=== PATIENT | male | born 1945 | race Caucasian/White ===

== ENCOUNTER → 2019-08-31 09:30 | Outpatient (BNVA) | payer MEDICARE, OTHER, SELFPAY | PROVIDERS: Family Provider Internal Medicine; PCP Internal Medicine; Referring Provider Internal Medicine; Visit Provider Specialist | DX: G56.03 Carpal tunnel syndrome, bilateral upper limbs (principal); G56.23 Lesion of ulnar nerve, bilateral upper limbs | CPT/HCPCS: 95910 ==

== ENCOUNTER → 2019-09-07 09:20 | Outpatient (BNVA) | payer MEDICARE, OTHER, SELFPAY | PROVIDERS: Family Provider Internal Medicine; PCP Internal Medicine; Visit Provider Urology | DX: R97.20 Elevated prostate specific antigen [PSA] (principal); N40.1 Benign prostatic hyperplasia with lower urinary tract symptoms | CPT/HCPCS: 81001; 84153 ==

== ENCOUNTER 2019-10-07 08:55 | Outpatient (CLI) | payer MEDICARE, OTHER, SELFPAY ==
[2019-10-07 10:55] LABS: Basophils % 0.6 %; Eosinophils # 0.1 10^3/uL (0.0-0.8); Eosinophils % 2.6 %; Hematocrit 34.8 % (42.0-52.0); Hemoglobin 10.8 g/dL (11.7-16.6); Lymphocytes # 0.8 10^3/uL (0.8-4.8); Lymphocytes % 15.1 %; Mean Corpuscular Volume 96.7 fL (80-94); Mean Platelet Volume 10.7 fL (7.4-10.4); Monocytes # 0.5 10^3/uL (0.2-0.9); Monocytes % 9.3 %; Neutrophils # 3.6 10^3/uL (1.8-7.7); Nucleated Red Blood Cells % 0 %; Platelet Count 217 10^3/cmm (130-400); Red Cell Distribution Width 15.2 % (12.1-15.1)
[2019-10-07 11:09] LABS: Alanine Aminotransferase 19 U/L (0-41); Albumin Level 4.2 g/dL (3.5-5.2); Alkaline Phosphatase 75 IU/L (40-130); Anion Gap 16.8 (5-19); Aspartate Amino Transferase 24 U/L (0-40); Blood Urea Nitrogen 23 mg/dL (8-23); Carbon Dioxide 25 mmol/L (22-29); Chloride 104 mmol/L (98-107); Globulin 3.1 g/dL (1.3-4.6); Glucose 135 mg/dL (65-115); Osmolality Calculated 293 mOsm/kg (285-295); Potassium 3.8 mmol/L (3.5-5.1); Sodium 142 mmol/L (136-145); Total Bilirubin 0.4 mg/dL (0.15-1.2); Total Protein 7.3 g/dL (6.6-8.7)
[2019-10-07 11:26] LABS: Iron 53 ug/dL (59-158); Total Iron Binding Capacity 331 mcg/dl; Unsaturated Iron Binding 278 ug/dL (112-347)
== END 2019-10-07 08:56 | disposition home or self-care (01) ==
LOC: ONCMED 15:16
PROVIDERS: Family Provider Internal Medicine; PCP Internal Medicine; Visit Provider Internal Medicine Medical Oncology
DX: D64.9 Anemia, unspecified (principal)
CPT/HCPCS: 36415; 80053; 83540; 83550; 85025

== ENCOUNTER 2019-12-09 05:46 | Day surgery (SDC) | payer MEDICARE, OTHER, SELFPAY ==
[2019-12-09] VITALS (7 sets, daily range): BP systolic 114–161; BP diastolic 68–92; PULSE 56–62; RESP 12–18; TEMP 36.3–36.9; O2SAT 94–99; BMI 38.3
--- NOTE | 2019-12-09 06:27 | ANES.PREANE2 ---
Pre-Anesthetic Assessment Pre-Anesthetic Assessment: Height/Weight: Height 1.83 m Weight 128.367 kg Temp Pulse Resp BP Pulse Ox 98.4 F 62 18 161/89 99 12/09/19 06:16 12/09/19 06:16 12/09/19 06:16 12/09/19 06:16 12/09/19 06:16 Proposed Procedure: Operation Date: 12/09/19 07:20 Proposed Procedures p Carpal Tunnel Release [id number]/G56.03/G56.23(Right) - Dino Santoro DO s Ulna Nerve Decompression vs transposition(Right) - Dino Santoro DO Last intake: Intake Last Liquid Date 12/08/19 Last Liquid Time 18:00 Last Solid Date 12/08/19 Last Solid Time 18:00 Social: Social History: No alcohol and No tobacco Exam: Pre-Anes Outpt Exam: alert, oriented x 3, clear to auscultation bilaterally and regular rate & rhythm Airway: Submandibular: WNL Cervical ROM: WNL MP: 2 Dentition: Other (teeth ok) History/ROS: No significant history except as noted Pulmonary: Pulmonary: NASSAR and Sleep apnea CV/HEM: CV/HEM: Afib, CAD (cabg 2013), CHF and HTN : : None reported Hepatic: Hepatic: None reported GI: GI: None reported Metabolic: Metabolic: DM, Hyperlipidemia and Morbid obesity Musc/skel: Musc/skel: Lower Back Pain and OA/DJD Neuropsych: Neuropsych: Neuropathy (hands) Anesthetic Plan: ASA status: 3 Anesthesia: Anesthesia Evaluation and MAC Risk of > 500 ml blood loss (7ml/kg in children): No PFSH Anesthesia PFSH: Medical History Anticoagulation adequate with anticoagulant therapy Xarelto Atrial fibrillation BPH loc w urin obs/LUTS CAD (coronary artery disease) Diabetes Dyslipidemia Elevated PSA Essential hypertension Ischemic cardiomyopathy Obesity Peripheral arterial disease Sleep apnea Surgical History H/O knee surgery S/P appendectomy S/P CABG (coronary artery bypass graft) S/P cataract surgery S/P hernia repair Family History Mother CAD (coronary artery disease) Stroke Father CAD (coronary artery disease) Family/Other Diabetes Hypertension Social History Smoking and tobacco status: never smoked Alcohol intake: never Adopted: No Caregiver/support person: No Marital status: / Current occupational status: retired History of recent travel: No Current gender identity: Male Data Anesthesia Cardiac Studies: No Data to Display
[2019-12-09] MEDS: sodium chloride 0.9% 1,000 ML 30 ML IV (06:44)
--- NOTE | 2019-12-09 07:02 | P.HPUD_ITS ---
Surgery/Procedure H&P Update DATE OF PROCEDURE: December 09, 2019 DATE H&P PERFORMED: 12/06/19 H&P UPDATE INFORMATION: I have reviewed H&P completed within last 30 days, I have examined patient prior to procedure, No changes to prior documentation, Changes to prior documentation as noted here and H&P is in [facility] on date indicated PREOP DIAGNOSIS: Right carpal tunnel space right cubital tunnel PRIMARY INDICATION FOR PROCEDURE: Entrapment median nerve right wrist and entrapment of ulnar nerve right elbow PLANNED PROCEDURE: Operation Date: 12/09/19 07:20 Proposed Procedures p Carpal Tunnel Release [id number]/G56.03/G56.23(Right) - DO mary Chavez Ulna Nerve Decompression vs transposition(Right) - Dino Santoro DO
--- NOTE | 2019-12-09 07:03 | PM.OP ---
Operative Report Date of procedure: December 09, 2019 Pre-op Diagnosis: Right carpal tunnel and right cubital tunnel syndromes Post-op diagnosis: same Post-op Findings: see below Procedure Done: Decompression right carpal tunnel Decompression right cubital tunnel Pathology: none sent Surgeon: Dino Santoro Anesthesia: General Estimated blood loss (mL): 5 Tourniquet time (min): 48 Findings: Tight carpal and cubital tunnels Condition: stable Disposition: PACU Brief History: 74-year-old white male with complaints of pain and paresthesias affecting the right upper extremity. His examination was suggestive of both right carpal and cubital tunnels. Electrodiagnostic studies supported this diagnosis as well. Risks, benefits and potential complications of surgery were discussed with the patient. Risks include aren't limited to failure to relieve all symptoms. There is potential for wound healing complications, infection, nerve/blood vessel/tendon injury. Medical complications can occur with surgery to include blood clots, heart attack, stroke risk up to including . All questions were answered patient is agreeable to proceed with surgery. Procedure: 1.5 g Zinacef Patient identified. Surgical sites are signed. Surgical permit signed. Patient received 1.5 g of Zinacef IV for surgical prophylaxis. Patient was taken to the Operating Room. Patient was transferred to the Operating Room table. Patient is placed supine on the OR table.. Patient placed under general anesthesia without difficulty. Patient was then sterilely prepped and draped in usual fashion using a sterile tourniquet. A 4cm palmar incision was made. Dissection carried down through skin subcutaneous tissue. We incised the transverse carpal ligament. The transverse carpal ligament was undermined proximally. The wrist was extended and then using a pushing scissors technique, the proximal extent of the transverse carpal ligament was divided. We verified the release was complete. Using scissors technique dissection, we released the distal extent of the transverse carpal ligament and the deep layer of the palmar fascia to the level of the superficial palmar arch. The median nerve was identified as well as the recurrent branch that was preserved. No other pathology noted in the carpal tunnel. Once again, we verified the release was complete. The wound was irrigated with sterile saline containing Betadine and sterile saline containing antibiotic solution. Skin closure was performed with interrupted sutures of 4-0 nylon. Attention was turned to the medial aspect of the operative elbow. A 6 cm curvilinear incision was made centered between the olecranon process and the medial humeral epicondyle. Full-thickness skin flaps were made with a skin knife. Crossing veins were coagulated with electrocautery. Scissors dissection was used to deepen the incision. Self-retaining retractors were put into place. The brachial fascia was opened using careful scissors dissection and the underlying ulnar nerve identified. The brachial fascia was released for several centimeters proximal to the cubital tunnel. No extrinsic compression on the ulnar nerve was appreciated proximally passing a hemostat beneath the skin and above the ulnar nerve. Dissection was continued distally using careful scissors dissection being careful to preserve cutaneous nerves as possible. Decompression of the ulnar nerve is taken several centimeters distal to the area of maximal compression at the area of Sabillon's fascia. Using a hemostat distally there is no evidence of distal compression into the proximal forearm. A subtle hourglass deformity of the ulnar nerve was identified at the area of maximal compression at the beginning of Sabillon's fascia. The nerve was now entirely decompressed. The elbow was placed through a range of motion. There is no tendency for the decompressed ulnar nerve to subluxate from behind the medial humeral epicondyle. For this reason no anterior transposition was performed. The wound was irrigated with Betadine-containing saline solution and antibiotic containing saline solution. The wound was closed in layers using 4-0 nylon on skin. The 2 incisions were injected with a total of 20 mL of a one-to-one mixture of 1% lidocaine and half percent Marcaine with epinephrine for postoperative analgesia. Dressings were applied which included: triple antibiotic ointment, Telfa, 4 x 4s, sterile cast padding, followed by a 5 x 30 plaster sheets 12 sheets in thickness to create an above elbow splint which was overwrapped with 3 and 4-inch MARCO ANTONIO wraps. The tourniquet was deflated during application of dressings. Patient tolerated the procedure well. Patient was taken to the recovery room. All counts were correct.
[2019-12-09] MEDS: cefUROXime 1,500 MG in sodium chloride 0.9% (plus) 50 ML 100 MG IV (07:20)
[2019-12-09] MEDS: neomycin-poly-bacitracin oint 28 gm 1 APPLIC TOPICAL (08:11)
--- NOTE | 2019-12-09 08:46 | SUR.PHASEI ---
0840 PT HAS SENSATION/MOVEMENT TO R. FINGERS, CAP REFILL <3 SEC
--- NOTE | 2019-12-21 15:19 | PM.HP ---
Providers/Chief Complaint Admitting Physician: Dino Santoro D.O. Primary Care Provider: Hernan Rees DO History of Present Illness Nicolas Romero is a 74 year old male with symptoms of pain and numbness bilateral upper extremities right greater than left. Clinical examination suggestive of carpal tunnel syndrome and entrapment of the ulnar nerve at the elbow. Review of Systems Const: Denies: fever(s) or chills Card: Denies: chest pain or dyspnea on exertion Resp: Denies: dyspnea, productive cough or non-productive cough GI: Denies: abdominal pain, nausea or vomiting Musc: Reports: extremity pain (bilateral upper extremities) Neuro: Reports: numbness in extremities (bilateral) and sensory changes (bilateral hands) Medications/Allergies Home Medications Medication Instructions Recorded Confirmed Last Taken Type aspirin 81 mg tablet,delayed 81 mg PO DAILY 09/07/19 12/15/19 12/11/19 History release atorvastatin 40 mg tablet 40 mg PO DAILY 09/07/19 12/15/19 12/11/19 History cholecalciferol (vitamin D3) 50 2,000 unit PO QAM cap 09/07/19 12/15/19 12/11/19 History mcg (2,000 unit) capsule finasteride 5 mg tablet 5 mg PO DAILY #90 tab 09/07/19 12/15/19 12/11/19 Rx furosemide 40 mg tablet 40 mg PO DAILY 09/07/19 12/15/19 12/11/19 History insulin glargine 100 unit/mL See Rx Instructions .ROUTE .COMPLEX 09/07/19 12/15/19 12/11/19 History subcutaneous solution 30 units potassium chloride 10 mEq 10 meq PO DAILY 09/07/19 12/15/19 12/11/19 History capsule,extended release rivaroxaban 20 mg tablet 20 mg PO DAILY 09/07/19 12/15/19 12/11/19 History sitagliptin 100 mg tablet 100 mg PO DAILY 09/07/19 12/15/19 12/11/19 History tamsulosin 0.4 mg capsule 0.4 mg PO DAILY cap 09/07/19 12/15/19 12/11/19 History metoprolol succinate 50 mg 50 mg PO DAILY #90 tab 10/15/19 12/15/19 12/11/19 Rx tablet,extended release 24 hr metformin 1,000 mg tablet 1,000 mg PO BID 11/05/19 12/15/19 12/11/19 History lisinopril 20 mg tablet 20 mg PO BID tab 11/10/19 12/15/19 12/11/19 History sotalol 80 mg PO BID 12/08/19 12/15/19 12/11/19 History oxycodone-acetaminophen 1 tab PO Q4H PRN #40 tab 12/09/19 12/15/19 Unknown Rx Cock Up Splint #1 each 12/15/19 12/15/19 Unknown Rx Allergies Allergy/AdvReac Type Severity Reaction Status Date / Time No Known Allergies Allergy Verified 12/15/19 08:22 PFSH Acute PFSH: Medical History Anticoagulation adequate with anticoagulant therapy Xarelto Atrial fibrillation BPH loc w urin obs/LUTS CAD (coronary artery disease) Diabetes Dyslipidemia Elevated PSA Essential hypertension Ischemic cardiomyopathy Obesity Peripheral arterial disease Sleep apnea Surgical History H/O knee surgery S/P appendectomy S/P CABG (coronary artery bypass graft) S/P cataract surgery S/P hernia repair Family History Mother CAD (coronary artery disease) Stroke Father CAD (coronary artery disease) Family/Other Diabetes Hypertension Social History Smoking and tobacco status: never smoked Alcohol intake: never Adopted: No Caregiver/support person: No Marital status: / Current occupational status: retired History of recent travel: No Current gender identity: Male Vitals/I&O/Wt Last Vital Signs Temp 97.3 F L 12/09/19 08:55 Pulse 57 L 12/09/19 09:11 Resp 18 12/09/19 09:11 BP 153/78 12/09/19 09:11 Pulse Ox 95 12/09/19 09:11 Physical Exam Narrative: EXAM NARRATIVE: 74-year-old white male in no acute distress. Is alert and cooperative HEENT examination: Sclerae anicteric pupils equal Neck is supple Heart is regular rate rhythm without murmur normal S1-S2 Lungs are clear to auscultation without wheeze rales or crackles Abdomen soft nontender examination shows positive Tinel's testing at the right elbow at the cubital tunnel limb of the right wrist consistent with carpal tunnels symptoms. Has weakness of the interosseous muscles between the ring and small fingers. He has no gross thenar hyperthenar atrophy A&P Assessment and plan (1) Cubital tunnel syndrome on right: patient brought to the operating room today for decompression of the right carpal tunnel and the ulnar nerve at the elbow see progress note on 11/05/2019 for further information Status: Acute (2) Carpal tunnel syndrome of right wrist: Status: Acute Attestations Medical Necessity Statement*: surgery performed on outpatient basis Coding Level of Care Code Established Pt Acute Circuit Recorder for [facility] Sveta Patient Type Established Diagnoses Cubital tunnel syndrome on right G56.21 Carpal tunnel syndrome of right wrist G56.01 Comment no charge for update of history physical examination
== END 2019-12-09 09:30 | disposition home or self-care (01) ==
PROVIDERS: PCP Internal Medicine; Visit Provider Orthopaedic Surgery
PROC: (CPT 64721; principal; 2019-12-09 07:00)
PROC: (CPT 64718; 2019-12-09 07:00)
DX: G56.01 Carpal tunnel syndrome, right upper limb (principal); G56.21 Lesion of ulnar nerve, right upper limb; G47.30 Sleep apnea, unspecified; I48.91 Unspecified atrial fibrillation; I25.10 Atherosclerotic heart disease of native coronary artery without angina pectoris; I11.0 Hypertensive heart disease with heart failure; I50.9 Heart failure, unspecified; Z95.1 Presence of aortocoronary bypass graft; E78.5 Hyperlipidemia, unspecified; E66.01 Morbid (severe) obesity due to excess calories; Z68.38 Body mass index [BMI] 38.0-38.9, adult; E11.40 Type 2 diabetes mellitus with diabetic neuropathy, unspecified; N40.1 Benign prostatic hyperplasia with lower urinary tract symptoms; N13.8 Other obstructive and reflux uropathy
CPT/HCPCS: 64718; 64721; 12345; J0697; J1580; J2370; J2704; J3010; J3490; J7030

== ENCOUNTER 2019-12-09 08:00 | Day surgery (SDC) | payer MEDICARE, OTHER, SELFPAY ==
[2019-11-18 11:38] VITALS: BMI 38.0
[2019-12-09 06:17] LABS: Glucose Point of Care 125 mg/dL (70-110)
== END 2019-12-09 09:00 | disposition home or self-care (01) ==
LOC: OPS 02-24 10:17
PROVIDERS: Family Provider Internal Medicine; PCP Internal Medicine; Visit Provider Orthopaedic Surgery
DX: G56.02 Carpal tunnel syndrome, left upper limb (principal)
CPT/HCPCS: 36416; 82962

== ENCOUNTER 2019-12-11 09:05 | Emergency (ER) | payer MEDICARE, OTHER, SELFPAY ==
[2019-12-11 09:19] VITALS: BP 173/88; PULSE 73; RESP 18; TEMP 36.8; O2SAT 97; BMI 38.2
[2019-12-11 11:06] VITALS: O2SAT 97
[2019-12-11 11:08] VITALS: BP 128/84; PULSE 64; RESP 20; O2SAT 97
--- NOTE | 2019-12-11 11:09 | W.ED.FALL ---
HPI - Fall General: Chief Complaint: Fall Stated Complaint: RIGHT HAND PAIN Time Seen by Provider: 12/11/19 10:01 History of Present Illness: HPI Narrative: This is a 74-year-old male presenting with bleeding from a surgical site. He had carpal tunnel and ulnar tunnel surgery on with Dr. Santoro. He is in a splint which is now soaked with blood on the distal aspect. He was walking today and tripped and fell landing on his right hand. He denies any new numbness, tingling, pain. He is just concerned about the bleeding. MD complaint: fall (Tripped and fell just prior to arrival) Onset (ago): unknown Fall from: standing Review of Systems Musc: Reports: extremity pain (Some postoperative pain, not worse since he fell.) Edgardo/Lymph: Reports: easy bruising PFS ED PFSH: Medical History Anticoagulation adequate with anticoagulant therapy Xarelto Atrial fibrillation BPH loc w urin obs/LUTS CAD (coronary artery disease) Diabetes Dyslipidemia Elevated PSA Essential hypertension Ischemic cardiomyopathy Obesity Peripheral arterial disease Sleep apnea Surgical History H/O knee surgery S/P appendectomy S/P CABG (coronary artery bypass graft) S/P cataract surgery S/P hernia repair Family History Mother CAD (coronary artery disease) Stroke Father CAD (coronary artery disease) Family/Other Diabetes Hypertension Social History Smoking and tobacco status: never smoked Alcohol intake: never Adopted: No Caregiver/support person: No Marital status: / Current occupational status: retired History of recent travel: No Current gender identity: Male Physical Exam Const: COMMON NORMALS: no acute distress, patient oriented x3, no limitations and alert GENERAL APPEARANCE: cooperative and comfortable HENMT: HEAD & SCALP: normal to inspection FACE & SINUS: normal facial exam Eye: GENERAL EYE: appearance normal, both eyes and all related structures Neck/C-Spine: COMMON NORMALS: supple, no meningeal signs and no JVD Chest: COMMONS NORMALS: normal inspection of the chest Resp: COMMON NORMALS: normal respiratory effort, No use of accessory muscles and clear to auscultation bilaterally AUSCULTATION: clear to auscultation bilaterally Cardio: COMMON NORMALS: no JVD, regular rate, regular rhythm and No murmurs present (Cardio) RATE: regular rate RHYTHM: regular rhythm GI: COMMON NORMALS: Normal to inspection, nondistended, normoactive bowel sounds present, Soft to palpation and non-tender INSPECTION: Yes normal to inspection AUSCULTATION: Yes normoactive bowel sounds PALPATION: Yes Soft to palpation Back/Pelvis: COMMON NORMALS: thoracic and lumbar spine normal to inspection Extremity: NARRATIVE EXTREMITY EXAM: Right upper extremity with a suture line on the medial elbow which looks very good. Is a suture line on the palmar surface of his hand consistent with carpal tunnel release. Horizontal mattress sutures are in place. There is some oozing from the site but it overall looks good. Neuro: COMMON NORMALS: patient oriented x3, moves all extremities, no focal motor deficits and no sensory deficits noted SENSORIUM/ORIENTATION: Yes alert MENINGEAL SIGNS: Yes no meningeal signs Psych: COMMON NORMALS: mental status grossly normal, cooperative and normal affect Skin: COMMON NORMALS: no rashes or lesions noted and turgor normal GENERAL SKIN EXAM: no rashes or lesions noted and turgor normal Course ED course: The patient did have some bleeding which was easily controlled with a little bit of pressure. The sutures are intact and the wound actually looks pretty good. He has another suture line on his elbow which looks fine. The dressings were replaced and I made a well padded splint is close to what he had on when he came in as possible. Vital Signs: Vital signs: Vital Signs Temperature 98.2 F 12/11/19 09:19 Pulse Rate 64 12/11/19 11:08 Respiratory Rate 20 H 12/11/19 11:08 Blood Pressure 128/84 12/11/19 11:08 Pulse Oximetry 97 12/11/19 11:08 Discharge Plan Discharge Patient Disposition: Home, Self-Care Clinical Impression: Encounter for wound re-check Fall Qualifiers: Encounter type: initial encounter Qualified Code(s): W19.XXXA - Unspecified fall, initial encounter Condition: Stable Prescriptions: No Action potassium chloride 10 mEq capsule, extended release 10 meq PO DAILY RF: 0 cholecalciferol (vitamin D3) 50 mcg (2,000 unit) capsule 2,000 unit PO QAM RF: 0 atorvastatin 40 mg tablet 40 mg PO DAILY RF: 0 furosemide 40 mg tablet 40 mg PO DAILY RF: 0 tamsulosin [Flomax] 0.4 mg capsule 0.4 mg PO DAILY RF: 0 Lantus U-100 Insulin 100 unit/mL solution See Rx Instructions .ROUTE .COMPLEX RF: 0 Januvia 100 mg tablet 100 mg PO DAILY RF: 0 Xarelto 20 mg tablet 20 mg PO DAILY RF: 0 aspirin [Adult Low Dose Aspirin] 81 mg tablet,delayed release (DR/EC) 81 mg PO DAILY RF: 0 finasteride 5 mg tablet 5 mg PO DAILY Qty: 90 RF: 3 lisinopril 20 mg tablet 20 mg PO BID RF: 0 metformin 1,000 mg tablet 1,000 mg PO BID RF: 0 metoprolol succinate 50 mg tablet extended release 24 hr 50 mg PO DAILY Qty: 90 RF: 3 sotalol 80 mg tablet 80 mg PO BID RF: 0 oxycodone-acetaminophen 5-325 mg tablet 1 tab PO Q4H PRN (Reason: pain) Qty: 40 RF: 0 Discharge Orders: Discharge Order (Routine); Ordered 12/11/19 Ordered By: Cinthia Schuster Referrals: Dino Santoro DO [Physician] - 12/16/19 Hernan Rees DO [Primary Care Provider] - Discharge Diet: Usual diet Discharge Activity: Resume usual activity Patient Instructions: Splint Care (ED) Activity Restrictions/Additional Instructions: Return to the emergency department if increased pain, blood soaking through the dressing, numbness or tingling in the fingers. Follow-up with Dr. Santoro as scheduled. 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
--- NOTE | 2019-12-11 11:13 | PC.NURSE ---
new ortho glass applied, arm wrapped in cotton and orthoglass applied and wrapped on acewrap
--- NOTE | 2019-12-13 14:41 | DCPLANNER ---
volunteer services manager had message to schedule follow up appointment for patient with ortho. volunteer services manager called the ortho clinic, spoke with Pat a follow up appointment is scheduled for December at 11:[address] Santoro. Clinic will call patient with appointment information.
--- NOTE | 2019-12-23 15:28 | DCPLANNER ---
Patient attended follow up appointment with ortho.
== END 2019-12-11 11:16 | disposition home or self-care (01) ==
PROVIDERS: Emergency Provider Emergency Medicine; PCP Internal Medicine
DX: Z48.00 Encounter for change or removal of nonsurgical wound dressing (principal); Z79.82 Long term (current) use of aspirin; Z79.4 Long term (current) use of insulin
CPT/HCPCS: 12345; 99281; 99282

== ENCOUNTER 2019-12-15 10:26 | Outpatient (CLI) | payer MEDICARE, OTHER, SELFPAY | END 2019-12-15 10:27 | disposition home or self-care (01) | LOC: SPT 10:27 | PROVIDERS: PCP Internal Medicine; Visit Provider Orthopaedic Surgery | DX: Z98.890 Other specified postprocedural states (principal); G56.03 Carpal tunnel syndrome, bilateral upper limbs | CPT/HCPCS: 97760; L3908 ==

== ENCOUNTER 2020-01-11 05:54 | Day surgery (SDC) | payer MEDICARE, OTHER, SELFPAY ==
[2020-01-10 08:01] VITALS: BMI 39.0
[2020-01-11 06:07] VITALS: BP 191/100; PULSE 71; RESP 18; TEMP 36.9; O2SAT 96
[2020-01-11 06:29] LABS: Glucose Point of Care 153 mg/dL (70-110)
[2020-01-11] MEDS: sodium chloride 0.9% 1,000 ML 30 ML IV (06:30)
--- NOTE | 2020-01-11 06:33 | ANES.PREANE2 ---
Pre-Anesthetic Assessment Pre-Anesthetic Assessment: Height/Weight: Height 1.83 m Weight 130.635 kg Temp Pulse Resp BP Pulse Ox 98.5 F 71 18 191/100 96 01/11/20 06:07 01/11/20 06:07 01/11/20 06:07 01/11/20 06:07 01/11/20 06:07 Preop Diagnosis: right carpal tunnel and right cubital tunnel Proposed Procedure: Operation Date: 01/11/20 07:10 Proposed Procedures p Trigger Finger Release/Thumb 17907 M65.312(Left) - Dino Santoro DO Familial anesthetic complications: None Last intake: Didn't take his beta cary - will give preop NPO > 8 hrs Social: Social History: No alcohol and No tobacco Exam: Pre-Anes Outpt Exam: alert, oriented x 3, clear to auscultation bilaterally and regular rate & rhythm Airway: Cervical ROM: WNL MP: 4 Dentition: Other Additional comments: large neck circumference Pulmonary: Pulmonary: Sleep apnea (cpap) CV/HEM: CV/HEM: Afib (last took rivaroxaban friday), CAD (CABG X 2 in 2013), CHF and HTN : : None reported Hepatic: Hepatic: None reported GI: GI: None reported Metabolic: Metabolic: DM, Hyperlipidemia and Morbid obesity Comments: abdominal obestiy Musc/skel: Musc/skel: None reported Neuropsych: Neuropsych: None reported Anesthetic Plan: ASA status: 3 Anesthesia: General Risk of > 500 ml blood loss (7ml/kg in children): No Meds/Allergies Current Medications: Current Medications Generic Name Dose Route Start Last Admin Trade Name Freq PRN Reason Stop Dose Admin Sodium Chloride 1,000 mls @ 30 ml s/hr 01/11/20 05:45 01/11/20 06:30 Sodium Chloride 0.9% IV 01/12/20 05:44 30 mls/hr .Q24H SUHAS Administration PFSH Anesthesia PFSH: Medical History Anticoagulation adequate with anticoagulant therapy Xarelto Atrial fibrillation BPH loc w urin obs/LUTS CAD (coronary artery disease) Diabetes Dyslipidemia Elevated PSA Essential hypertension Ischemic cardiomyopathy Obesity Peripheral arterial disease Sleep apnea Surgical History H/O knee surgery History of carpal tunnel surgery of right wrist S/P appendectomy S/P CABG (coronary artery bypass graft) S/P cataract surgery S/P decompression of ulnar nerve at elbow S/P hernia repair Family History Mother CAD (coronary artery disease) Stroke Father CAD (coronary artery disease) Family/Other Diabetes Hypertension Social History Smoking and tobacco status: never smoked Alcohol intake: never Adopted: No Caregiver/support person: No Marital status: / Current occupational status: retired History of recent travel: No Current gender identity: Male Data Anesthesia Other Labs: Laboratory Results - last 48 hr 01/11/20 06:26 POC Glucose 153 Cardiac Studies: No Data to Display
--- NOTE | 2020-01-11 06:34 | W.PM.OPSUD ---
Surgery/Procedure H&P Update DATE OF PROCEDURE: January 11, 2020 DATE H&P PERFORMED: 12/29/19 H&P UPDATE INFORMATION: I have reviewed H&P completed within last 30 days, I have examined patient prior to procedure and No changes to prior documentation PREOP DIAGNOSIS: left trigger thumb release PRIMARY INDICATION FOR PROCEDURE: triggering and locking left thumb PLANNED PROCEDURE: Operation Date: 01/11/20 07:10 Proposed Procedures p Trigger Finger Release/Thumb 24802 M65.312(Left) - Dino Santoro DO
--- NOTE | 2020-01-11 06:36 | PM.OP ---
Operative Report Date of procedure: January 11, 2020 Pre-op Diagnosis: left trigger thumb Post-op diagnosis: same Procedure Done: left trigger thumb release Pathology: none sent Surgeon: Dino Santoro Anesthesia: MAC and Local Estimated blood loss (mL): 2 Tourniquet time (min): 12 (at 250 mm Hg) Condition: stable Disposition: same day Brief History: 74-year-old white male with complaints of occasional triggering and episodes of locking of the left thumb for a number of months. Risk, benefits and treatment options were discussed with the patient. He opted for surgical release of the left thumb A1 wes. Risks of surgery include are not limited to infection, nerve/blood vessel/injury, failure to leave all symptoms possible recurrence and risks up to including . Patient agreeable to proceed with surgery. Procedure: 1.5 g Zinacef Patient identified. Surgical site was signed. Surgical permit was signed. The patient received 1.5 g of Zinacef intravenously for surgical prophylaxis. He was taken back to the operating. He was placed supine on the OR table. A tourniquet is placed by the upper aspect of the left upper extremity. The patient received intravenous sedation. The intended area of surgery was anesthetized using 8 cc of a one-to-one mixture 1% lidocaine and half percent Marcaine both without epinephrine. The patient was then sterilely prepped and draped usual fashion. Timeout was performed. The operative limb was then exsanguinated using Esmarch bandage tourniquet inflated to 250 mmHg pressure. We made a superficial skin incision using a #15 blade transversely at the base of the thumb of the skin crease. We then used spreading scissors technique longitudinally to deepen the incision. Ragnell retractors were placed on the radial and ulnar aspects of the flexor pollicis longus tendon. The tendon sheath was identified. The A1 wes was identified. We incised the A1 wes and the tendon sheath using the tip of a #11 blade. We then completed the release using tenotomy scissors both proximally and distally. We delivered the flexor pollicis longus tendon from the wound. There is some minor fraying of the tendon superficially otherwise no significant pathology. The wound is irrigated with Betadine containing saline solution and antibiotic containing saline solution. Skin was closed with 4-0 nylon sutures on skin. Triple antibiotic ointment was applied sterile dressings were applied. The tourniquet was deflated during application of dressings. The patient was aroused from sedation during wound closure. He is able to flex and extend his thumb without demonstrating any triggering or locking. Once his dressing had been applied. The patient was transferred to his gurney and then transferred back to the outpatient surgery area to be discharged from there. All counts are correct.
[2020-01-11] MEDS: metoprolol succinate ER (24 HR) 50 mg Tablet PO (06:44)
[2020-01-11] MEDS: sotalol 80 mg Tablet PO (06:44)
[2020-01-11] MEDS: cefUROXime 1,500 MG in sodium chloride 0.9% (plus) 50 ML 100 MG IV (06:58)
[2020-01-11] MEDS: lidocaine 1% INJ 20 mL SUBCUT (07:25)
[2020-01-11] MEDS: neomycin-poly-bacitracin oint 28 gm 1 APPLIC TOPICAL (07:25)
[2020-01-11 07:45] VITALS: BP 170/92; PULSE 64; RESP 16; TEMP 36.7; O2SAT 98
[2020-01-11 08:05] VITALS: BP 194/102; PULSE 62; RESP 18; O2SAT 98
== END 2020-01-11 08:19 | disposition home or self-care (01) ==
PROVIDERS: PCP Internal Medicine; Visit Provider Orthopaedic Surgery
PROC: (CPT 26055; principal; 2020-01-11 07:00)
DX: M65.312 Trigger thumb, left thumb (principal); G47.30 Sleep apnea, unspecified; I48.91 Unspecified atrial fibrillation; I25.10 Atherosclerotic heart disease of native coronary artery without angina pectoris; Z95.1 Presence of aortocoronary bypass graft; I11.0 Hypertensive heart disease with heart failure; I50.9 Heart failure, unspecified; E11.9 Type 2 diabetes mellitus without complications; E78.5 Hyperlipidemia, unspecified; E66.01 Morbid (severe) obesity due to excess calories; Z68.39 Body mass index [BMI] 39.0-39.9, adult; N40.1 Benign prostatic hyperplasia with lower urinary tract symptoms; N13.8 Other obstructive and reflux uropathy; Z79.82 Long term (current) use of aspirin
CPT/HCPCS: 26055; 12345; 36416; 82962; J0697; J1580; J2001; J2704; J3010; J3490; J7030

== ENCOUNTER 2020-02-07 13:41 | Outpatient (CLI) | payer MEDICARE, OTHER, SELFPAY ==
[2020-02-07 14:12] LABS: Basophils % 0.5 %; Eosinophils # 0.2 10^3/uL (0.0-0.8); Eosinophils % 2.4 %; Hemoglobin 10.4 g/dL (11.7-16.6); Lymphocytes # 0.9 10^3/uL (0.8-4.8); Lymphocytes % 14.6 %; Mean Corpuscular HGB Conc 31.5 g/dL (30.0-36.0); Mean Corpuscular Hemoglobin 29.7 pg (28.0-34.0); Mean Corpuscular Volume 94.3 fL (80-94); Mean Platelet Volume 9.4 fL (7.4-10.4); Monocytes # 0.4 10^3/uL (0.2-0.9); Neutrophils # 4.76 10^3/uL (1.8-7.7); Neutrophils % 75.2 %; Nucleated Red Blood Cells % 0 %; Platelet Count 240 10^3/cmm (130-400); Red Cell Distribution Width 15.8 % (12.1-15.1); White Blood Count 6.3 10^3/uL (4.0-10.0)
[2020-02-07 14:26] LABS: Alanine Aminotransferase 15 U/L (0-41); Albumin Level 4.4 g/dL (3.5-5.2); Alkaline Phosphatase 69 IU/L (40-130); Anion Gap 13.4 (5-19); Aspartate Amino Transferase 19 U/L (0-40); Blood Urea Nitrogen 26 mg/dL (8-23); Calcium 8.9 mg/dL (8.5-10.5); Carbon Dioxide 24 mmol/L (22-29); Chloride 106 mmol/L (98-107); Ferritin 33 ng/mL (30-400); Glucose 81 mg/dL (65-115); Iron 59 ug/dL (59-158); Osmolality Calculated 284 mOsm/kg (285-295); Percent Saturation 16.7 % (20-50); Potassium 4.4 mmol/L (3.5-5.1); Sodium 139 mmol/L (136-145); Total Bilirubin 0.3 mg/dL (0.15-1.2); Total Iron Binding Capacity 353 mcg/dl; Total Protein 7.4 g/dL (6.6-8.7); Unsaturated Iron Binding 294 ug/dL (112-347)
--- NOTE | 2020-02-11 19:04 | ONC FU_ITS ---
Dr. Gasca Patient Follow-Up Note Patient: Nicolas Romero Unit #: [id number]: [id number] Dicatated By: Hernan Gasca M.D.Date of Visit:Feb 07, 2020 Onc Med Follow-up/Prog Note Chief Complaint: Anemia. History of Present Illness: This is a 74 year-old man with iron deficiency anemia. On his follow-up visit at the [facility] on 01/21/2018 he was noted to be moderately anemic, hemoglobin 9.8 g with hematocrit 31.8%. The red cell indices were normal. The white blood cell count was 7700 and the platelet count was 254,000. Chem profile was unremarkable except for elevated creatinine 1.58 mg/dL with BUN 20 mg/dL. His further laboratory studies on 01/26/2018 included low serum iron at 53 mcg/dL with transferrin saturation 14.7%. The TSH was low at 0.001 mIU/mL. At that point he did start on an oral iron supplement. In August 2017 he had a colonoscopy after he had been found to have a heme positive stool. There were reportedly no abnormalities found on that study. He was scheduled to see Dr. Huerta for EGD. I had seen him initially on 02/09/2018. I had recommended that he just continue with his oral iron supplement pending further management for the low TSH/hyperthyroidism. As he was taking amiodarone at the time, I did have him schedule follow-up with Dr. Van, and I also advised him to defer the EGD. He was then taken off amiodarone and his metoprolol dosage was increased. He also was referred to an fish farm manager. He was seen here again on 03/23/2018, and he was then given parenteral iron replacement with infusions of Injectafer on 04/24/2018 and 05/01/2018. As of his follow-up visit on 07/16/2018 he was still mildly anemic with hemoglobin 11.6 g. He has multiple medical illnesses including hypertension, hyperlipidemia, type II diabetes, coronary artery disease, atrial fibrillation, and obstructive sleep apnea. He underwent coronary artery bypass in May 2014. His other surgeries include appendectomy, umbilical hernia repair, arthroscopic knee surgery, and bilateral cataract excisions. He is a nonsmoker. INTERIM HISTORY: His follow-up laboratory studies on 09/17/2018 still showed mild anemia with hemoglobin 10.6 g. The red cell indices were at the upper limit of normal. White blood cell count was normal at 6000 and platelet count was normal at 180,000. His serum iron studies show transferrin saturation normal at 24%, and the ferritin was normal at 108 ng/mL. He underwent bone marrow aspiration/biopsy on 11/23/2018. The cellularity was 50%. There were no overt dysplastic changes, and there was no evidence of infiltrative process. Iron stores were absent. The FISH panel for MDS was unrevealing, and the chromosome analysis was normal. Overall, the findings were consistent with iron deficiency anemia. He was recommended to continue and iron-containing multivitamin daily. He is seen for a follow-up visit. He has been feeling pretty good generally. He indicates that he has had carpal tunnel surgery bilaterally within the last 2 to 3 months. He had no complications with the procedure. His energy is fair. He does have some fatigue. His ECOG score is 1. He has good appetite. He has no fever or night sweats. He has some shortness of breath with activity. He does not complain of cough, and he has not been having chest pain. He has no GI/ complaints other than he does get diarrhea with metformin. He has been having pain in his left knee. He will be seeing Dr. Mcneill about it on Friday. He has no other joint or bone pain. He has no focal neurologic symptoms. Medications: Aspirin 1 Tablet (of 81 mg) Oral daily, Bactroban 1 (2 %) Cream Topical b.i.d., Betapace 1 Tablet (of 80 mg) Oral b.i.d., Cholecalciferol 1 Tablet (of 5000 Units) Oral daily, Finasteride 1 Tablet (of 5 mg) Oral daily, Furosemide 1 Tablet (of 40 mg) Oral b.i.d., Januvia 1 Tablet (of 100 mg) Oral daily, Klor-Con M10 1 Tablet (of 10 meq) Tablet, controlled release Oral daily, Lantus SoloStar Subcutaneous Take as Directed, Lipitor 1 Tablet (of 40 mg) Oral daily, Lisinopril 1 Tablet (of 20 mg) Oral daily, metFORMIN HCl 1 Tablet (of 1000 mg) Oral b.i.d., Metoprolol Tartrate 1 Tablet (of 50 mg) Oral daily, Mupirocin 1 Ointment Topical daily PRN, Sennosides 1 Tablet (of 8.6 mg) Oral b.i.d., Symbicort 1 puff(s) (of 160-4.5 mcg/act) Aerosol Inhalation b.i.d., Tamsulosin HCl 2 Capsule (of 0.4 mg) Oral daily, Xarelto 1 Tablet (of 20 mg) Oral daily Allergies: No Known Allergies. Review of Systems: Constitutional - He feels good and his energy is fair. His appetite is good and his weight is up about 8 pounds from last visit. No fever, night sweats, or hot flashes. ECOG score is 1, ENMT - He has seasonal allergies. No mouth sores. No sore throat or difficulty swallowing, Hematologic/Lymphatic - He bruises easily, Respiratory - He has some shortness of breath. No cough. No pleuritic pain or hemoptysis, Cardiovascular - No angina pain. No palpitations, Gastrointestinal - No nausea or vomiting. No heartburn or acid reflux. He has had diarrhea with metformin. No blood in the stool or black stools, Genitourinary (M) - No dysuria or hematuria. No urinary frequency. No urgency or incontinence, Musculoskeletal - He has some pain in his left knee. It is being evaluated by Dr. Mcneill next week, Integumentary - No skin complications, Neurologic - No headache or dizziness. No numbness or tingling. No other focal neurologic symptoms, Psychiatric - No anxiety or depression. No insomnia. Vital Signs: Performed on Feb 07, 2020 15:11 Height - 72.00 in Weight - 285.4 lbs (HIGH) BSA - 2.48 sq.m BMI - 38.71 (HIGH) Temperature - 97.8 F (LOW) Pulse - 82 /min Respiration - 24 /min BP - 141/78 mm(hg) (HIGH) O2 Sat - 96 % Pain - 0 Physical Examination: Constitutional - He looks pretty good generally, Eyes - Sclerae nonicteric. Conjunctivae clear, ENMT - No lesions noted in the oral cavity, Hematologic/Lymphatic - No cervical, clavicular, or axillary adenopathy, Respiratory - Lungs sound clear, Cardiovascular - Heart rhythm is regular. There is no murmur, gallop, or rub noted, Abdomen - Distended. Liver and spleen are not enlarged. There is no abdominal mass or ascites noted and there is no inguinal adenopathy, Extremities - No edema, Neurologic - No focal neurologic deficits noted. Lab/Imaging: Test performed on Feb 07, 2020 13:54 Ferritin 33 ng/mL Iron 59 mcg/dL Sodium 139 mmol/L Iron Binding Capacity (TIBC) 353 mcg/dl Potassium 4.4 mmol/L % Iron Saturation 16.7 % Chloride 106 mmol/L CO2 24 mmol/L UIBC 294 mcg/dL Anion Gap 13.4 BUN 26 mg/dL Creatinine 1.5 mg/dL Cr Clearance (Est) 81.51 mL/min Glucose 81 mg/dL Calcium 8.9 mg/dL Protein, Total 7.4 g/dL Albumin 4.4 g/dL Globulin 3.0 g/dL Bilirubin, Total 0.3 mg/dL ALT (SGPT) 15 U/L AST (SGOT) 19 U/L Alkaline Phosphatase 69 IU/L WBC 6.3 10 3/uL RBC 3.50 10 6/uL HGB 10.4 g/dL HCT 33.0 % MCV 94.3 fL MCH 29.7 pg MCHC 31.5 g/dL RDW 15.8 % Platelet Count 240 10 3/cmm MPV 9.4 fL Neutrophils 4.76 10 3/uL Lymphocytes 0.9 10 3/uL Monocytes 0.4 10 3/uL Eosinophils 0.2 10 3/uL Basophils 0.0 10 3/uL Neutrophil % 75.2 % Lymphocyte % 14.6 % Monocyte % 7.0 % Eosinophil % 2.4 % Basophils % 0.5 % NRBC % 0 % Impression: 1. Patient with moderately severe anemia, normochromic/normocytic. The serum iron studies were consistent with iron deficiency. There may be associated GI blood loss. It is uncertain to what extent in inadequate oral iron absorption may be contributing. 2. He has low TSH, consistent with hyperthyroidism. He has associated tachycardia and shortness of breath. His other medical illnesses include: 3. Hypertension. 4. Hyperlipidemia. 5. Type II diabetes. 6. Chronic kidney disease. 7. Coronary artery disease. 8. Atrial fibrillation. 9. Obstructive sleep apnea. 10. Benign prostatic hypertrophy. His symptoms of hyperthyroidism had persisted after stopping amiodarone, and he was then referred to an fish farm manager. He then started treatment with methimazole. He remained anemic on oral iron supplementation, and in April he did complete parenteral iron replacement with Injectafer. He did show some response, but he remained mildly anemic. His bone marrow aspiration/biopsy on 11/23/2018 was consistent with iron deficiency anemia. As yet he has had no further treatment, but he has had problems with constipation associated with both oral iron supplements and Injectafer. During subsequent follow-up he has remained mildly anemic. His laboratory studies appear to be consistent with iron deficiency. As he has not been overtly symptomatic, he has preferred to just continue with vitamin supplementation orally. Plan: At least for now he prefers to just continue oral iron supplementation with ferrous sulfate 325 mg daily. I will see him again in 1 month. If he is not tolerating or showing adequate response to the oral iron, he will be given the option to have parenteral iron replacement with Injectafer. Signed By: Hernan Gasca M.D. <<Signature on File>>
== END 2020-02-07 13:42 | disposition home or self-care (01) ==
LOC: ONCMED 13:46
PROVIDERS: PCP Internal Medicine; Visit Provider Internal Medicine Medical Oncology
DX: D50.9 Iron deficiency anemia, unspecified (principal); R94.6 Abnormal results of thyroid function studies; R00.0 Tachycardia, unspecified; R06.02 Shortness of breath; E78.5 Hyperlipidemia, unspecified; E11.22 Type 2 diabetes mellitus with diabetic chronic kidney disease; I12.9 Hypertensive chronic kidney disease with stage 1 through stage 4 chronic kidney disease, or unspecified chronic kidney disease; N18.9 Chronic kidney disease, unspecified; I25.10 Atherosclerotic heart disease of native coronary artery without angina pectoris; I48.91 Unspecified atrial fibrillation; G47.33 Obstructive sleep apnea (adult) (pediatric); N40.0 Benign prostatic hyperplasia without lower urinary tract symptoms; K59.00 Constipation, unspecified; Z79.4 Long term (current) use of insulin
CPT/HCPCS: 80053; 82728; 83540; 83550; 85025; G0463

== ENCOUNTER → 2020-02-14 11:42 | Outpatient (BNVA) | payer MEDICARE, OTHER, SELFPAY | PROVIDERS: PCP Internal Medicine; Referring Provider Orthopaedic Surgery; Visit Provider Specialist | DX: M25.569 Pain in unspecified knee (principal) | CPT/HCPCS: 73560; 73565 ==

== ENCOUNTER 2020-02-15 12:32 | Outpatient (CLI) | payer MEDICARE, OTHER, SELFPAY ==
--- NOTE | 2020-02-15 12:39 | MR_ITS ---
WS: [id number] MRI LEFT KNEE HISTORY: M25.569 Pain in unspecified knee COMPARISON: 02/14/2020 Anterior cruciate ligament: Partial tear of the inferior posterior ACL. There is increased signal wit h lack of the normal fibers. Posterior cruciate ligament: Mild buckling with increased scattered signal. No tear identified. Medial collateral ligament: Small amount of fluid in the proximal MCL. No complete tear. Posterior lateral corner structures: Intact. Medial menisci: Horizontal tear in the posterior horn with extension to the inferior articular surfac e. Tear extends towards the meniscal root. There is a mildly bulbous deformity towards the meniscal r oot which may be related to meniscal fragment. Anterior horn is small caliber and partially extruded. Lateral meniscus: Horizontal tear in the anterior horn extends to the superior articular surface. The re is also abnormal signal in the posterior horn extending towards the meniscal root and contacting t he superior and inferior articular surfaces. Extensor mechanism: Distal quadriceps tendon is normal. Multifocal patellar tendinopathy with no tear . Fluid and soft tissue: Large suprapatellar joint effusion. There are a few septations within the flui d. There is a very large complex Devlin's cyst. There is variable signal intensity within the Devlin's cyst suggesting there may be some hemorrhage or protein. Mild soft tissue edema surrounding the knee. Osseous and articular structures: Patellofemoral compartment: Mild narrowing of patellofemoral joint space. Full-thickness cartilage de fect over the lateral facet with underlying subchondral cystic changes. Medial compartment: Severe narrowing of the medial compartment with osteophytes. Loss of cartilage wi th a small amount of subchondral edema on both sides of the joint. Partial extrusion of the meniscus. Lateral compartment: Moderate to severe narrowing of the lateral compartment with loss of cartilage. No significant marrow edema. MR/MR knee LT wo con* [id number] IMPRESSION: 1. Large complex suprapatellar effusion. 2. Large complex Devlin's cyst. 3. Complex tears posterior horns of the medial and lateral menisci. Possible f ragment towards the meniscal root of the posterior horn medial meniscus. 4. Horizontal tear anterior horn lateral meniscus extending to the superior ar ticular surface. 5. Severe medial compartment with moderate to severe lateral compartment souza es of osteoarthritis with loss of cartilage. 6. Small full-thickness cartilage defect with underlying marrow edema lateral patellar facet. 7. Suspect partial tear of the distal ACL.
== END 2020-02-15 12:33 | disposition home or self-care (01) ==
LOC: RADWPI 12:36
PROVIDERS: Family Provider Internal Medicine; PCP Internal Medicine; Visit Provider Specialist
DX: M25.462 Effusion, left knee; G89.29 Other chronic pain; M71.22 Synovial cyst of popliteal space [Baker], left knee; S83.282A Other tear of lateral meniscus, current injury, left knee, initial encounter; S83.242A Other tear of medial meniscus, current injury, left knee, initial encounter; S43.52XA Sprain of left acromioclavicular joint, initial encounter; X58.XXXA Exposure to other specified factors, initial encounter
CPT/HCPCS: 73721

== ENCOUNTER 2020-03-08 09:57 | Outpatient (CLI) | payer MEDICARE, OTHER, SELFPAY ==
[2020-03-08 10:55] LABS: Basophils % 0.7 %; Eosinophils # 0.1 10^3/uL (0.0-0.8); Eosinophils % 2.4 %; Hemoglobin 10.9 g/dL (11.7-16.6); Lymphocytes # 0.8 10^3/uL (0.8-4.8); Lymphocytes % 12.8 %; Mean Corpuscular HGB Conc 31.1 g/dL (30.0-36.0); Mean Corpuscular Hemoglobin 30.5 pg (28.0-34.0); Mean Platelet Volume 9.5 fL (7.4-10.4); Monocytes # 0.5 10^3/uL (0.2-0.9); Neutrophils # 4.39 10^3/uL (1.8-7.7); Neutrophils % 74.7 %; Nucleated Red Blood Cells % 0 %; Platelet Count 239 10^3/cmm (130-400); Red Blood Count 3.57 10^6/uL (4.1-5.3); Red Cell Distribution Width 16.8 % (12.1-15.1); White Blood Count 5.9 10^3/uL (4.0-10.0)
[2020-03-08 11:16] LABS: Ferritin 43 ng/mL (30-400); Iron 168 ug/dL (59-158); Percent Saturation 51.6 % (20-50); Total Iron Binding Capacity 325 mcg/dl; Unsaturated Iron Binding 157 ug/dL (112-347)
== END 2020-03-08 09:58 | disposition home or self-care (01) ==
LOC: ONCMED 10:01
PROVIDERS: PCP Internal Medicine; Visit Provider Internal Medicine Medical Oncology
DX: D50.9 Iron deficiency anemia, unspecified (principal)
CPT/HCPCS: 82728; 83540; 83550; 85025

== ENCOUNTER 2020-04-11 11:54 | Outpatient (CLI) | payer MEDICARE, OTHER, SELFPAY ==
[2020-04-11 13:20] LABS: Ferritin 61 ng/mL (30-400); Iron 107 ug/dL (59-158); Percent Saturation 32.7 % (20-50); Total Iron Binding Capacity 327 mcg/dl; Unsaturated Iron Binding 220 ug/dL (112-347)
[2020-04-11 13:28] LABS: Basophils % 0.7 %; Eosinophils # 0.1 10^3/uL (0.0-0.8); Hematocrit 34.7 % (42.0-52.0); Hemoglobin 10.9 g/dL (11.7-16.6); Lymphocytes # 0.9 10^3/uL (0.8-4.8); Mean Corpuscular HGB Conc 31.4 g/dL (30.0-36.0); Mean Corpuscular Hemoglobin 31.4 pg (28.0-34.0); Monocytes # 0.5 10^3/uL (0.2-0.9); Monocytes % 7.6 %; Neutrophils # 4.51 10^3/uL (1.8-7.7); Neutrophils % 74.2 %; Nucleated Red Blood Cells % 0 %; Platelet Count 231 10^3/cmm (130-400); Red Blood Count 3.47 10^6/uL (4.1-5.3); Red Cell Distribution Width 15.9 % (12.1-15.1); White Blood Count 6.1 10^3/uL (4.0-10.0)
[2020-04-11 15:13] LABS: Blood Urea Nitrogen 22 mg/dL (8-23); Calcium 10.1 mg/dL (8.5-10.5); Carbon Dioxide 21 mmol/L (22-29); Chloride 103 mmol/L (98-107); Glucose 193 mg/dL (65-115); Osmolality Calculated 295 mOsm/kg (285-295); Sodium 138 mmol/L (136-145)
[2020-04-11 15:14] LABS: Anion Gap 18.1 (5-19); Potassium 4.1 mmol/L (3.5-5.1)
--- NOTE | 2020-04-11 16:22 | ONC FU_ITS ---
Dr. Gasca Patient Follow-Up Note Patient: Nicolas Romero Unit #: [id number]: 1945 Dicatated By: Hernan Gasca M.D.Date of Visit:Apr 11, 2020 Onc Med Follow-up/Prog Note Chief Complaint: Anemia. History of Present Illness: This is a 74 year-old man with iron deficiency anemia. On his follow-up visit at the [facility] on 01/21/2018 he was noted to be moderately anemic, hemoglobin 9.8 g with hematocrit 31.8%. The red cell indices were normal. The white blood cell count was 7700 and the platelet count was 254,000. Chem profile was unremarkable except for elevated creatinine 1.58 mg/dL with BUN 20 mg/dL. His further laboratory studies on 01/26/2018 included low serum iron at 53 mcg/dL with transferrin saturation 14.7%. The TSH was low at 0.001 mIU/mL. At that point he did start on an oral iron supplement. In August 2017 he had a colonoscopy after he had been found to have a heme positive stool. There were reportedly no abnormalities found on that study. He was scheduled to see Dr. Huerta for EGD. I had seen him initially on 02/09/2018. I had recommended that he just continue with his oral iron supplement pending further management for the low TSH/hyperthyroidism. As he was taking amiodarone at the time, I did have him schedule follow-up with Dr. Van, and I also advised him to defer the EGD. He was then taken off amiodarone and his metoprolol dosage was increased. He also was referred to an senior sales director. He was seen here again on 03/23/2018, and he was then given parenteral iron replacement with infusions of Injectafer on 04/24/2018 and 05/01/2018. As of his follow-up visit on 07/16/2018 he was still mildly anemic with hemoglobin 11.6 g. He has multiple medical illnesses including hypertension, hyperlipidemia, type II diabetes, coronary artery disease, atrial fibrillation, and obstructive sleep apnea. He underwent coronary artery bypass in May 2014. His other surgeries include appendectomy, umbilical hernia repair, arthroscopic knee surgery, and bilateral cataract excisions. He is a nonsmoker. INTERIM HISTORY: His follow-up laboratory studies on 09/17/2018 still showed mild anemia with hemoglobin 10.6 g. The red cell indices were at the upper limit of normal. White blood cell count was normal at 6000 and platelet count was normal at 180,000. His serum iron studies show transferrin saturation normal at 24%, and the ferritin was normal at 108 ng/mL. He underwent bone marrow aspiration/biopsy on 11/23/2018. The cellularity was 50%. There were no overt dysplastic changes, and there was no evidence of infiltrative process. Iron stores were absent. The FISH panel for MDS was unrevealing, and the chromosome analysis was normal. Overall, the findings were consistent with iron deficiency anemia. He was recommended to continue and iron-containing multivitamin daily. He was then seen for a follow-up visit on 02/07/2020. He was still mildly anemic with hemoglobin 10.4 g and hematocrit 33.0%. The red cell indices were slightly macrocytic. There had been slight improvement in his renal function, creatinine down to 1.5 mg/dL compared to 1.8 mg/dL in October. The serum iron studies showed low transferrin saturation at 16.7% with ferritin also relatively low at 33 ng/mL, consistent with iron deficiency. He continued oral iron supplementation with ferrous sulfate. Repeat lab studies in 03/08/2020 showed no change in the hemoglobin/hematocrit, but at that point the transferrin saturation was slightly elevated at 51.6% and the ferritin had increased to 43 ng/mL. He is seen for a follow-up visit. He has been feeling pretty good generally. He says that he does get tired, but he is doing light work. His ECOG score is 1. He has good appetite. He has no fever or night sweats. He has shortness of breath with activity. He says his breathing is about normal, though. He does not complain of cough and he has not been having chest pain. He has no GI/ complaints other than occasional diarrhea. He has pain in his left knee, and he has been told that he needs a total knee replacement. He has no other joint or bone pain. He has no focal neurologic symptoms. Medications: Aspirin 1 Tablet (of 81 mg) Oral daily, Bactroban 1 (2 %) Cream Topical b.i.d., Betapace 1 Tablet (of 80 mg) Oral b.i.d., Cholecalciferol 1 Tablet (of 5000 Units) Oral daily, Ferrous Sulfate 1 Tablet (of 325 (65 fe) mg) Oral daily, Finasteride 1 Tablet (of 5 mg) Oral daily, Furosemide 0.5 Tablet (of 40 mg) Oral daily, Januvia 1 Tablet (of 100 mg) Oral daily, Klor-Con M10 1 Tablet (of 10 meq) Tablet, controlled release Oral daily, Lantus SoloStar Subcutaneous Take as Directed, Lipitor 1 Tablet (of 40 mg) Oral daily, Lisinopril 1 Tablet (of 20 mg) Oral daily, metFORMIN HCl 1 Tablet (of 1000 mg) Oral b.i.d., Metoprolol Tartrate 1 Tablet (of 50 mg) Oral daily, Mupirocin 1 Ointment Topical daily PRN, Sennosides 1 Tablet (of 8.6 mg) Oral b.i.d., Symbicort 1 puff(s) (of 160-4.5 mcg/act) Aerosol Inhalation b.i.d., Tamsulosin HCl 2 Capsule (of 0.4 mg) Oral daily, Xarelto 1 Tablet (of 20 mg) Oral daily Allergies: No Known Allergies. Review of Systems: Constitutional - He has been feeling good generally. His energy is good, but he does get tired easily. He is able to do light work. His appetite is good and his weight is stable. No fever, night sweats, or hot flashes. ECOG score is 1, ENMT - He has sinus drainage. No mouth sores. No sore throat or difficulty swallowing, Hematologic/Lymphatic - He bruises easily, Respiratory - He gets short of breath with exertion. No cough. No pleuritic pain or hemoptysis. He uses CPAP at night, Cardiovascular - No angina pain. No palpitations, Gastrointestinal - No nausea or vomiting. No heartburn or acid reflux. He has occasional loose stools. No constipation. No blood in the stool or black stools, Genitourinary (M) - No dysuria or hematuria. No urinary frequency. No urgency or incontinence, Musculoskeletal - He has left knee pain, Integumentary - No skin complications, Neurologic - No headache or dizziness. No numbness or tingling. No other focal neurologic symptoms, Psychiatric - No anxiety or depression. No insomnia. Vital Signs: Performed on Apr 11, 2020 13:28 Height - 72.00 in Weight - 284.0 lbs (LOW) BSA - 2.47 sq.m BMI - 38.52 (HIGH) Temperature - 97.8 F (LOW) Pulse - 70 /min Respiration - 28 /min BP - 176/82 mm(hg) (HIGH) O2 Sat - 97 % Pain - 0 Physical Examination: Constitutional - He looks pretty good generally, Eyes - Sclerae nonicteric. Conjunctivae clear, ENMT - No lesions noted in the oral cavity, Hematologic/Lymphatic - No cervical, clavicular, or axillary adenopathy, Respiratory - Lungs sound clear, Cardiovascular - Heart rhythm is regular. There is no murmur, gallop, or rub noted, Abdomen - Moderately distended. Liver and spleen are not enlarged. There is no abdominal mass or ascites noted and there is no inguinal adenopathy, Extremities - Slight edema, Neurologic - No focal neurologic deficits noted. Lab/Imaging: Test performed on Apr 11, 2020 12:30 Ferritin 61 ng/mL Iron 107 mcg/dL Sodium 138 mmol/L Iron Binding Capacity (TIBC) 327 mcg/dl Potassium 4.1 mmol/L % Iron Saturation 32.7 % Chloride 103 mmol/L CO2 21 mmol/L UIBC 220 mcg/dL Anion Gap 18.1 Glucose 193 mg/dL BUN 22 mg/dL Creatinine 1.4 mg/dL Cr Clearance (Est) 86.9000 mL/min Calcium 10.1 mg/dL Osmolality - Calculated 295 mOsm/kg WBC 6.1 10 3/uL RBC 3.47 10 6/uL HGB 10.9 g/dL HCT 34.7 % MCV 100.0 fL MCH 31.4 pg MCHC 31.4 g/dL RDW 15.9 % Platelet Count 231 10 3/cmm MPV 10.0 fL Neutrophils 4.51 10 3/uL Lymphocytes 0.9 10 3/uL Monocytes 0.5 10 3/uL Eosinophils 0.1 10 3/uL Basophils 0.0 10 3/uL Neutrophil % 74.2 % Lymphocyte % 15.0 % Monocyte % 7.6 % Eosinophil % 2.0 % Basophils % 0.7 % NRBC % 0 % Impression: 1. Patient with moderately severe anemia, normochromic/normocytic. The serum iron studies were consistent with iron deficiency. There may be associated GI blood loss. It is uncertain to what extent in inadequate oral iron absorption may be contributing. 2. He has low TSH, consistent with hyperthyroidism. He has associated tachycardia and shortness of breath. His other medical illnesses include: 3. Hypertension. 4. Hyperlipidemia. 5. Type II diabetes. 6. Chronic kidney disease. 7. Coronary artery disease. 8. Atrial fibrillation. 9. Obstructive sleep apnea. 10. Benign prostatic hypertrophy. His symptoms of hyperthyroidism had persisted after stopping amiodarone, and he was then referred to an senior sales director. He then started treatment with methimazole. He remained anemic on oral iron supplementation, and in April he did complete parenteral iron replacement with Injectafer. He did show some response, but he remained mildly anemic. His bone marrow aspiration/biopsy on 11/23/2018 was consistent with iron deficiency anemia. As yet he has had no further treatment, but he has had problems with constipation associated with both oral iron supplements and Injectafer. During subsequent follow-up he remained mildly anemic. His laboratory studies in February appeared to be consistent with iron deficiency. As he has not been overtly symptomatic, he has preferred to just continue with vitamin supplementation orally. He continued on iron supplementation with ferrous sulfate 325 mg daily. Since then there has been some increase in the transferrin saturation and in the serum ferritin, but no change in hemoglobin/hematocrit levels. His clinical status during this time has been stable. Plan: At this point the cause of his anemia is not entirely certain, but he has he does appear to be stable clinically and his bone marrow aspiration/biopsy in November 2018 showed no diagnostic abnormalities, I will just continue to monitor him on oral iron supplementation. He will be scheduled for a follow-up visit in 3 months. Signed By: Hernan Gasca M.D. <<Signature on File>>
== END 2020-04-11 11:55 | disposition home or self-care (01) ==
PROVIDERS: PCP Internal Medicine; Visit Provider Internal Medicine Medical Oncology
DX: D50.9 Iron deficiency anemia, unspecified (principal); R94.6 Abnormal results of thyroid function studies; E78.5 Hyperlipidemia, unspecified; E11.22 Type 2 diabetes mellitus with diabetic chronic kidney disease; I12.9 Hypertensive chronic kidney disease with stage 1 through stage 4 chronic kidney disease, or unspecified chronic kidney disease; N18.9 Chronic kidney disease, unspecified; Z79.4 Long term (current) use of insulin; I25.10 Atherosclerotic heart disease of native coronary artery without angina pectoris; I48.91 Unspecified atrial fibrillation; G47.33 Obstructive sleep apnea (adult) (pediatric); N40.0 Benign prostatic hyperplasia without lower urinary tract symptoms
CPT/HCPCS: 80048; 82728; 83540; 83550; 85025; 99214

== ENCOUNTER 2020-07-12 10:35 | Outpatient (CLI) | payer MEDICARE, OTHER, SELFPAY ==
[2020-07-12 11:45] LABS: Basophils # 0.1 10^3/uL (0.0-0.1); Eosinophils # 0.3 10^3/uL (0.0-0.8); Hematocrit 35.2 % (42.0-52.0); Hemoglobin 11.3 g/dL (11.7-16.6); Lymphocytes # 0.8 10^3/uL (0.8-4.8); Lymphocytes % 14.8 %; Mean Corpuscular HGB Conc 32.1 g/dL (30.0-36.0); Mean Corpuscular Volume 96.7 fL (80-94); Mean Platelet Volume 9.7 fL (7.4-10.4); Monocytes # 0.4 10^3/uL (0.2-0.9); Monocytes % 7.5 %; Neutrophils % 71.1 %; Nucleated Red Blood Cells % 0 %; Platelet Count 207 10^3/cmm (130-400); Red Blood Count 3.64 10^6/uL (4.1-5.3); Red Cell Distribution Width 14.8 % (12.1-15.1); White Blood Count 5.2 10^3/uL (4.0-10.0)
[2020-07-12 12:39] LABS: Alanine Aminotransferase 13 U/L (0-41); Albumin Level 4.1 g/dL (3.5-5.2); Alkaline Phosphatase 79 IU/L (40-130); Aspartate Amino Transferase 15 U/L (0-40); Blood Urea Nitrogen 12 mg/dL (8-23); Calcium 9.7 mg/dL (8.5-10.5); Carbon Dioxide 29 mmol/L (22-29); Chloride 103 mmol/L (98-107); Ferritin 52 ng/mL (30-400); Globulin 2.7 g/dL (1.3-4.6); Glucose 112 mg/dL (65-115); Iron 97 ug/dL (59-158); Osmolality Calculated 293 mOsm/kg (285-295); Percent Saturation 30.9 % (20-50); Sodium 141 mmol/L (136-145); Total Bilirubin 0.6 mg/dL (0.15-1.2); Total Iron Binding Capacity 313 mcg/dl; Total Protein 6.8 g/dL (6.6-8.7); Unsaturated Iron Binding 216 ug/dL (112-347)
--- NOTE | 2020-07-15 18:09 | ONC FU_ITS ---
Dr. Gasca Patient Follow-Up Note Patient: Nicolas Romero Unit #: [id number]: 1945 Dicatated By: Hernan Gasca M.D.Date of Visit:Jul 12, 2020 Onc Med Follow-up/Prog Note Chief Complaint: Anemia. History of Present Illness: This is a 74 year-old man with anemia, a least some component of which was felt to be due to iron deficiency. On his follow-up visit at the [facility] on 01/21/2018 he was noted to be moderately anemic, hemoglobin 9.8 g with hematocrit 31.8%. The red cell indices were normal. The white blood cell count was 7700 and the platelet count was 254,000. Chem profile was unremarkable except for elevated creatinine 1.58 mg/dL with BUN 20 mg/dL. His further laboratory studies on 01/26/2018 included low serum iron at 53 mcg/dL with transferrin saturation 14.7%. The TSH was low at 0.001 mIU/mL. At that point he did start on an oral iron supplement. In August 2017 he had a colonoscopy after he had been found to have a heme positive stool. There were reportedly no abnormalities found on that study. He was scheduled to see Dr. Huerta for EGD. I had seen him initially on 02/09/2018. I had recommended that he just continue with his oral iron supplement pending further management for the low TSH/hyperthyroidism. As he was taking amiodarone at the time, I did have him schedule follow-up with Dr. Van, and I also advised him to defer the EGD. He was then taken off amiodarone and his metoprolol dosage was increased. He also was referred to an wastewater analyst lab analyst. He was seen here again on 03/23/2018, and he was then given parenteral iron replacement with infusions of Injectafer on 04/24/2018 and 05/01/2018. As of his follow-up visit on 07/16/2018 he was still mildly anemic with hemoglobin 11.6 g. His follow-up laboratory studies on 09/17/2018 still showed mild anemia with hemoglobin 10.6 g. The red cell indices were at the upper limit of normal. White blood cell count was normal at 6000 and platelet count was normal at 180,000. His serum iron studies show transferrin saturation normal at 24%, and the ferritin was normal at 108 ng/mL. He underwent bone marrow aspiration/biopsy on 11/23/2018. The cellularity was 50%. There were no overt dysplastic changes, and there was no evidence of infiltrative process. Iron stores were absent. The FISH panel for MDS was unrevealing, and the chromosome analysis was normal. Overall, the findings were consistent with iron deficiency anemia. He was recommended to continue and iron-containing multivitamin daily. He was then seen for a follow-up visit on 02/07/2020. He was still mildly anemic with hemoglobin 10.4 g and hematocrit 33.0%. The red cell indices were slightly macrocytic. There had been slight improvement in his renal function, creatinine down to 1.5 mg/dL compared to 1.8 mg/dL in October. The serum iron studies showed low transferrin saturation at 16.7% with ferritin also relatively low at 33 ng/mL, consistent with iron deficiency. He continued oral iron supplementation with ferrous sulfate. Repeat lab studies in 03/08/2020 showed no change in the hemoglobin/hematocrit, but at that point the transferrin saturation was slightly elevated at 51.6% and the ferritin had increased to 43 ng/mL. His other medical illnesses including hypertension, hyperlipidemia, type II diabetes, coronary artery disease, atrial fibrillation, and obstructive sleep apnea. He underwent coronary artery bypass in May 2014. His other surgeries include appendectomy, umbilical hernia repair, arthroscopic knee surgery, and bilateral cataract excisions. He is a nonsmoker. INTERIM HISTORY: He is seen for a follow-up visit. He has been feeling okay, though he does report that he has been having more trouble breathing. He has a follow-up visit scheduled with his expander next week. He has some limitation in his activity tolerance, but he is able to do light work. ECOG score is 1. He has good appetite, and he has gained weight. He does not have fever or night sweats. He sometimes has cough, but not a lot. He has not been having chest pain. His bowel function tends to fluctuate between constipation and diarrhea, and that does seem to be associated with his iron supplement and his Metformin. He has no other GI or complaints. He has some stiffness in his joints, particularly the left knee. He has no focal neurologic symptoms. Medications: Aspirin 1 Tablet (of 81 mg) Oral daily, Bactroban 1 (2 %) Cream Topical b.i.d., Betapace 1 Tablet (of 80 mg) Oral b.i.d., Cholecalciferol 1 Tablet (of 5000 Units) Oral daily, Ferrous Sulfate 1 Tablet (of 325 (65 fe) mg) Oral daily, Finasteride 1 Tablet (of 5 mg) Oral daily, Furosemide 0.5 Tablet (of 40 mg) Oral daily, Januvia 1 Tablet (of 100 mg) Oral daily, Klor-Con M10 1 Tablet (of 10 meq) Tablet, controlled release Oral daily, Lantus SoloStar Subcutaneous Take as Directed, Lipitor 1 Tablet (of 40 mg) Oral daily, Lisinopril 1 Tablet (of 20 mg) Oral daily, metFORMIN HCl 1 Tablet (of 1000 mg) Oral b.i.d., Metoprolol Tartrate 1 Tablet (of 50 mg) Oral daily, Mupirocin 1 Ointment Topical daily PRN, Sennosides 1 Tablet (of 8.6 mg) Oral b.i.d., Symbicort 1 puff(s) (of 160-4.5 mcg/act) Aerosol Inhalation b.i.d., Tamsulosin HCl 2 Capsule (of 0.4 mg) Oral daily, Xarelto 1 Tablet (of 20 mg) Oral daily Allergies: No Known Allergies. Vital Signs: Performed on Jul 12, 2020 12:21 Height - 72.00 in Weight - 291.2 lbs (HIGH) BSA - 2.50 sq.m BMI - 39.49 (HIGH) Temperature - 97.2 F (LOW) Pulse - 65 /min Respiration - 20 /min O2 Sat - 95 % (LOW) Pain - 0 Physical Examination: Constitutional - He appears short of breath with effort, Eyes - Sclerae nonicteric. Conjunctivae clear, ENMT - No lesions noted in the oral cavity, Hematologic/Lymphatic - No cervical, clavicular, or axillary adenopathy, Respiratory - Lungs sound clear, Cardiovascular - Heart rhythm is regular. There is no murmur, gallop, or rub noted, Abdomen - Moderately distended. Liver and spleen are not enlarged. There is no abdominal mass or ascites noted and there is no inguinal adenopathy, Extremities - Mild edema, Neurologic - No focal neurologic deficits noted. Lab/Imaging: Test performed on Jul 12, 2020 11:10 Ferritin 52 ng/mL Iron 97 mcg/dL Sodium 141 mmol/L Iron Binding Capacity (TIBC) 313 mcg/dl Potassium 4.0 mmol/L % Iron Saturation 30.9 % Chloride 103 mmol/L CO2 29 mmol/L UIBC 216 mcg/dL Anion Gap 13.0 BUN 12 mg/dL Creatinine 1.5 mg/dL Cr Clearance (Est) 83.17 mL/min Glucose 112 mg/dL Osmolality - Calculated 293 mOsm/kg Calcium 9.7 mg/dL Protein, Total 6.8 g/dL Albumin 4.1 g/dL Globulin 2.7 g/dL Bilirubin, Total 0.6 mg/dL ALT (SGPT) 13 U/L AST (SGOT) 15 U/L Alkaline Phosphatase 79 IU/L WBC 5.2 10 3/uL RBC 3.64 10 6/uL HGB 11.3 g/dL HCT 35.2 % MCV 96.7 fL MCH 31.0 pg MCHC 32.1 g/dL RDW 14.8 % Platelet Count 207 10 3/cmm MPV 9.7 fL Neutrophils 3.70 10 3/uL Lymphocytes 0.8 10 3/uL Monocytes 0.4 10 3/uL Eosinophils 0.3 10 3/uL Basophils 0.1 10 3/uL Neutrophil % 71.1 % Lymphocyte % 14.8 % Monocyte % 7.5 % Eosinophil % 5.0 % Basophils % 1.0 % NRBC % 0 % Historic Problem List: 1. Moderately severe anemia with serum iron studies consistent with iron deficiency. He remained anemic despite oral and parenteral iron replacement. Bone marrow aspiration/biopsy on 11/23/2018 showed iron deficiency and no other diagnostic abnormality. 2. He had low TSH, consistent with hyperthyroidism, and he associated tachycardia and shortness of breath. 3. Hypertension. 4. Hyperlipidemia. 5. Type II diabetes. 6. Chronic kidney disease. 7. Coronary artery disease. 8. Atrial fibrillation. 9. Obstructive sleep apnea. 10. Benign prostatic hypertrophy. Problems Addressed with this Encounter and Plan: 1. Persistent anemia. This is likely to be multifactorial. He had documented iron deficiency by bone marrow aspiration/biopsy in November 2018. During subsequent follow-up he remained mildly anemic despite iron replacement. At this point he is still mildly anemic, with normal transferrin saturation and with serum ferritin in the low normal range. Given those findings, he will continue on observation/expectant management. I will tentatively plan a follow-up visit in 6 months. 2. He has increased shortness of breath. It is uncertain to what extent that may be associated with his anemia as opposed to underlying medical illnesses, particularly his coronary artery disease. He does have scheduled follow-up with his expander. Signed By: Hernan Gasca M.D. <<Signature on File>>
== END 2020-07-12 10:36 | disposition home or self-care (01) ==
PROVIDERS: PCP Internal Medicine; Visit Provider Internal Medicine Medical Oncology
DX: D50.9 Iron deficiency anemia, unspecified (principal); E05.90 Thyrotoxicosis, unspecified without thyrotoxic crisis or storm; R00.0 Tachycardia, unspecified; R06.02 Shortness of breath; I10 Essential (primary) hypertension; E78.5 Hyperlipidemia, unspecified; E11.22 Type 2 diabetes mellitus with diabetic chronic kidney disease; N18.9 Chronic kidney disease, unspecified; E11.59 Type 2 diabetes mellitus with other circulatory complications; I25.10 Atherosclerotic heart disease of native coronary artery without angina pectoris; I48.91 Unspecified atrial fibrillation; G47.33 Obstructive sleep apnea (adult) (pediatric); N40.0 Benign prostatic hyperplasia without lower urinary tract symptoms; Z79.899 Other long term (current) drug therapy
CPT/HCPCS: 36415; 80053; 82728; 83540; 83550; 85025; G0463

== ENCOUNTER 2020-07-24 11:25 | Outpatient (RCR) | payer SELFPAY | END 2020-08-06 23:59 | disposition home or self-care (01) | LOC: CR 11:25 | PROVIDERS: PCP Internal Medicine; Referring Provider Internal Medicine; Visit Provider Internal Medicine | DX: Z95.1 Presence of aortocoronary bypass graft (principal) ==

== ENCOUNTER 2020-08-08 09:14 | Outpatient (RCR) | payer SELFPAY | END 2020-09-03 23:59 | disposition home or self-care (01) | LOC: CR 09:14 | PROVIDERS: PCP Internal Medicine; Referring Provider Internal Medicine; Visit Provider Internal Medicine | DX: I25.10 Atherosclerotic heart disease of native coronary artery without angina pectoris (principal) ==

== ENCOUNTER 2020-09-04 08:31 | Outpatient (RCR) | payer SELFPAY | END 2020-10-04 23:59 | disposition home or self-care (01) | LOC: CR 08:31 | PROVIDERS: PCP Internal Medicine; Referring Provider Internal Medicine; Visit Provider Internal Medicine | DX: I25.10 Atherosclerotic heart disease of native coronary artery without angina pectoris (principal) ==

== ENCOUNTER → 2020-09-25 14:55 | Outpatient (BNVA) | payer MEDICARE, OTHER, SELFPAY | PROVIDERS: PCP Internal Medicine; Visit Provider Specialist | DX: M17.11 Unilateral primary osteoarthritis, right knee (principal) | CPT/HCPCS: 73560; 73565; 80500; 89050 ==

== ENCOUNTER 2020-10-10 10:41 | Outpatient (RCR) | payer SELFPAY | END 2020-11-03 23:59 | disposition home or self-care (01) | LOC: CR 10:41 | PROVIDERS: PCP Internal Medicine; Referring Provider Internal Medicine; Visit Provider Internal Medicine | DX: I25.10 Atherosclerotic heart disease of native coronary artery without angina pectoris (principal) ==

== ENCOUNTER 2020-11-06 08:55 | Outpatient (RCR) | payer SELFPAY | END 2020-12-04 23:59 | disposition home or self-care (01) | LOC: CR 08:55 | PROVIDERS: PCP Internal Medicine; Referring Provider Internal Medicine; Visit Provider Internal Medicine | DX: I25.10 Atherosclerotic heart disease of native coronary artery without angina pectoris (principal) ==

== ENCOUNTER 2020-12-05 13:07 | Outpatient (RCR) | payer SELFPAY | END 2021-01-03 23:59 | disposition home or self-care (01) | LOC: CR 13:07 | PROVIDERS: PCP Internal Medicine; Referring Provider Internal Medicine; Visit Provider Internal Medicine | DX: I25.10 Atherosclerotic heart disease of native coronary artery without angina pectoris (principal) ==

== ENCOUNTER 2021-01-04 08:06 | Outpatient (CLI) | payer MEDICARE, OTHER, SELFPAY ==
--- NOTE | 2021-01-04 08:45 | MR_ITS ---
WS: [id number] MRI RIGHT SHOULDER NONCONTRAST TECHNIQUE: Sagittal T2, coronal T1, T2 and proton density imaging. Axial gradient PDE imaging. CLINICAL INFORMATION: INTERNAL DERANGEMENT RIGHT SHOULDER COMPARISON: None. FINDINGS: Moderate degenerative arthritis at the AC joint. Mild downsloping acromion. Subacromial spurring. Subacromial/subdeltoid fluid with AC joint effusion. Ganglion cyst AC joint measuring 7.2 x 8.6 mm. R ight shoulder effusion. Diffuse edema involving the rotator cuff. Full-thickness tear supraspinatus w ith retraction to the level of the AC joint. Chronic thinning with near full-thickness tear involving the infraspinatus. Diffuse thinning of the infraspinatus distally. A few intact fibers distally. Diffuse edema involving the teres minor muscle belly. Distal tendon appears intact. Subscapularis ten don is intact distally. Fluid in the subcoracoid bursa. Biceps tendon is intact within the bicipital groove. Fluid along the biceps tendon sheath. Biceps lab ral anchor appears intact. Chronic appearing degenerative fraying of the glenoid labrum. Normal bone marrow signal in the glenoid. MR/MR shoulder RT wo con* [id number] IMPRESSION: 1. Advanced degenerative arthritis AC joint with fluid in the AC joint and eva ma. Subacromial and subdeltoid fluid. Moderate joint effusion.Ganglion cyst AC joint measuring 7.2 x 8.6 mm. 2. Diffuse edema in the rotator cuff with full-thickness tear of the supraspin atus with retraction to the level of glenohumeral joint. 3. Near full-thickness high-grade tear infraspinatus with diffuse edema. 4. Teres minor and subscapularis tendons appear intact. 5. Biceps tendon is intact within the bicipital groove with fluid along the bi ceps tendon sheath. Normal biceps labral anchor. 6. Degenerative fraying of the glenoid labrum. 7. Normal bone marrow signal in the humerus and glenoid.
== END 2021-01-04 08:07 | disposition home or self-care (01) ==
LOC: RADSHAW 08:15
PROVIDERS: PCP Internal Medicine; Visit Provider Internal Medicine
DX: M24.811 Other specific joint derangements of right shoulder, not elsewhere classified (principal); R60.0 Localized edema; M19.011 Primary osteoarthritis, right shoulder
CPT/HCPCS: 73221

== ENCOUNTER 2021-01-04 11:33 | Outpatient (RCR) | payer SELFPAY | END 2021-02-03 23:59 | disposition home or self-care (01) | LOC: CR 11:33 | PROVIDERS: PCP Internal Medicine; Referring Provider Internal Medicine; Visit Provider Internal Medicine | DX: I25.10 Atherosclerotic heart disease of native coronary artery without angina pectoris (principal) ==

== ENCOUNTER 2021-01-11 06:40 | Outpatient (CLI) | payer MEDICARE, OTHER, SELFPAY ==
--- NOTE | 2021-01-11 07:15 | USCV_ITS ---
Nicolas Romero Age: 75 Gender: M : 1945 Exam Date: 01/11/2021 07:13 Ordering Phys: Alek Parker M.D ([email or web address]) Technologist: SORAYA Exam Location: [facility] – [place] Indication: aaa HISTORY: Diameter (cm) AP x Transverse x Length Velocity (cm/s) Waveform Prox Aorta: 2.42 x 2.86 x 72.00 Mid Aorta: 2.14 x 2.03 x 74.10 Distal Aorta: 2.37 x 2.18 x 81.60 Right Iliac Prox: 1.34 x 1.42 x 64.50 Left Iliac Prox: 1.53 x 1.42 x 94.50 Stent Prox Landing x x Aneurysmal Sac Max x x Lt Lat Sac Dim Rt Lat Sac Dim Stent Dist Landing x x Right Iliac Stent x x Left Iliac Stent x x Right Renal Art Left Renal Art FINDINGS: Technically difficult study because of the poor ultrasonic window. Normal aortic and proximal cardiac artery Doppler flow velocities. Right common iliac artery measures 1.34 x 1.42 proximally Left common iliac artery measured of 1.53 x 1.42 proximal CONCLUSIONS 1. Near normal abdominal aortic dimensions. 2. Mildly dilated proximal common iliac arteries bilaterally. No significant aneurysms, based on the above findings Technically difficult study because of the poor ultrasonic window No similar previous studies are available for comparison Dr Humberto Alfaro MD [facility] (Electronically Signed) Final Date: 12 January 2021 12:53 S
== END 2021-01-11 06:41 | disposition home or self-care (01) ==
PROVIDERS: PCP Internal Medicine; Visit Provider Internal Medicine
DX: I71.4 Abdominal aortic aneurysm, without rupture (principal)
CPT/HCPCS: 93978

== ENCOUNTER 2021-02-05 13:52 | Outpatient (RCR) | payer SELFPAY | END 2021-03-06 23:59 | disposition home or self-care (01) | LOC: CR 13:52 | PROVIDERS: PCP Internal Medicine; Referring Provider Internal Medicine; Visit Provider Internal Medicine | DX: I25.10 Atherosclerotic heart disease of native coronary artery without angina pectoris (principal) ==

== ENCOUNTER 2021-02-27 13:12 | Outpatient (CLI) | payer MEDICARE, OTHER, SELFPAY ==
[2021-02-27 13:55] LABS: Basophils # 0.1 10^3/uL (0.0-0.1); Basophils % 0.7 %; Eosinophils # 0.1 10^3/uL (0.0-0.8); Eosinophils % 0.9 %; Hemoglobin 11.8 g/dL (11.7-16.6); Lymphocytes # 0.6 10^3/uL (0.8-4.8); Lymphocytes % 7.4 %; Mean Corpuscular HGB Conc 31.9 g/dL (30.0-36.0); Mean Corpuscular Hemoglobin 31.4 pg (28.0-34.0); Mean Corpuscular Volume 98.4 fl (80-94); Mean Platelet Volume 9.8 fL (7.4-10.4); Monocytes # 0.4 10^3/uL (0.2-0.9); Monocytes % 5.7 %; Neutrophils # 6.37 10^3/uL (1.8-7.7); Neutrophils % 84.6 %; Nucleated Red Blood Cells % 0 %; Platelet Count 265 10^3/cmm (130-400); Red Blood Count 3.76 10^6/uL (4.1-5.3); Red Cell Distribution Width 14.5 % (12.1-15.1); White Blood Count 7.5 10^3/uL (4.0-10.0)
[2021-02-27 14:26] LABS: Alanine Aminotransferase 14 U/L (0-41); Albumin Level 4.2 g/dL (3.5-5.2); Alkaline Phosphatase 69 IU/L (40-130); Anion Gap 18.8 (5-19); Aspartate Amino Transferase 16 U/L (0-40); Blood Urea Nitrogen 20 mg/dL (8-23); Calcium 9.5 mg/dL (8.5-10.5); Carbon Dioxide 22 mmol/L (22-29); Chloride 100 mmol/L (98-107); Ferritin 82 ng/mL (30-400); Globulin 2.5 g/dL (1.3-4.6); Glucose 199 mg/dL (65-115); Iron 76 ug/dL (59-158); Osmolality Calculated 292 mOsm/kg (285-295); Percent Saturation 26.9 % (20-50); Potassium 3.8 mmol/L (3.5-5.1); Sodium 137 mmol/L (136-145); Total Bilirubin 0.5 mg/dL (0.15-1.2); Total Iron Binding Capacity 282 mcg/dl; Total Protein 6.7 g/dL (6.6-8.7); Unsaturated Iron Binding 206 ug/dL (112-347)
--- NOTE | 2021-02-28 06:44 | ONC FU_ITS ---
Dr. Gasca Patient Follow-Up Note Patient: Nicolas Romero Unit #: [id number]: 1945 Dicatated By: Hernan Gasca M.D.Date of Visit:Feb 27, 2021 Onc Med Follow-up/Prog Note Chief Complaint: Anemia. History of Present Illness: This is a 75 year-old man with anemia, a least some component of which was felt to be due to iron deficiency. On his follow-up visit at the [facility] on 01/21/2018 he was noted to be moderately anemic, hemoglobin 9.8 g with hematocrit 31.8%. The red cell indices were normal. The white blood cell count was 7700 and the platelet count was 254,000. Chem profile was unremarkable except for elevated creatinine 1.58 mg/dL with BUN 20 mg/dL. His further laboratory studies on 01/26/2018 included low serum iron at 53 mcg/dL with transferrin saturation 14.7%. The TSH was low at 0.001 mIU/mL. At that point he did start on an oral iron supplement. In August 2017 he had a colonoscopy after he had been found to have a heme positive stool. There were reportedly no abnormalities found on that study. He was scheduled to see Dr. Huerta for EGD. I had seen him initially on 02/09/2018. I had recommended that he just continue with his oral iron supplement pending further management for the low TSH/hyperthyroidism. As he was taking amiodarone at the time, I did have him schedule follow-up with Dr. Van, and I also advised him to defer the EGD. He was then taken off amiodarone and his metoprolol dosage was increased. He also was referred to an machine hose cutter. He was seen here again on 03/23/2018, and he was then given parenteral iron replacement with infusions of Injectafer on 04/24/2018 and 05/01/2018. As of his follow-up visit on 07/16/2018 he was still mildly anemic with hemoglobin 11.6 g. His follow-up laboratory studies on 09/17/2018 still showed mild anemia with hemoglobin 10.6 g. The red cell indices were at the upper limit of normal. White blood cell count was normal at 6000 and platelet count was normal at 180,000. His serum iron studies show transferrin saturation normal at 24%, and the ferritin was normal at 108 ng/mL. He underwent bone marrow aspiration/biopsy on 11/23/2018. The cellularity was 50%. There were no overt dysplastic changes, and there was no evidence of infiltrative process. Iron stores were absent. The FISH panel for MDS was unrevealing, and the chromosome analysis was normal. Overall, the findings were consistent with iron deficiency anemia. He was recommended to continue and iron-containing multivitamin daily. He was then seen for a follow-up visit on 02/07/2020. He was still mildly anemic with hemoglobin 10.4 g and hematocrit 33.0%. The red cell indices were slightly macrocytic. There had been slight improvement in his renal function, creatinine down to 1.5 mg/dL compared to 1.8 mg/dL in October. The serum iron studies showed low transferrin saturation at 16.7% with ferritin also relatively low at 33 ng/mL, consistent with iron deficiency. He continued oral iron supplementation with ferrous sulfate. Repeat lab studies in 03/08/2020 showed no change in the hemoglobin/hematocrit, but at that point the transferrin saturation was slightly elevated at 51.6% and the ferritin had increased to 43 ng/mL. As he was just mildly anemic, I opted to just continue expectant management. His other medical illnesses including hypertension, hyperlipidemia, type II diabetes, coronary artery disease, atrial fibrillation, and obstructive sleep apnea. He underwent coronary artery bypass in May 2014. His other surgeries include appendectomy, umbilical hernia repair, arthroscopic knee surgery, and bilateral cataract excisions. He is a nonsmoker. INTERIM HISTORY: He is seen for a follow-up visit. He has been feeling pretty good generally. 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 He is doing cardiac rehab 3 days a week. His ECOG score is 0. He has good appetite. He has no fever or night sweats. He has not had sore throat or cough. He does not complain of shortness of breath or chest pain. He has no GI/ complaints other than occasional constipation, which he manages adequately with Metamucil as needed. He does have some arthritis, he says his right shoulder has been getting worse. Lately his calf muscles have been sore. He does not complain of headache or dizziness. He has no numbness/paresthesia or other focal neurologic symptoms. Medications: amLODIPine Besylate 1 Tablet (of 10 mg) Oral daily, Aspirin 1 Tablet (of 81 mg) Oral daily, Bactroban 1 (2 %) Cream Topical b.i.d., Betapace 1 Tablet (of 80 mg) Oral b.i.d., Ferrous Sulfate 1 Tablet (of 325 (65 fe) mg) Oral daily, Furosemide 0.5 Tablet (of 40 mg) Oral daily, Januvia 1 Tablet (of 100 mg) Oral daily, Klor-Con M10 1 Tablet (of 10 meq) Tablet, controlled release Oral daily, Lantus SoloStar Subcutaneous Take as Directed, Lipitor 1 Tablet (of 40 mg) Oral daily, Lisinopril 1 Tablet (of 20 mg) Oral b.i.d., metFORMIN HCl 1 Tablet (of 1000 mg) Oral b.i.d., Metoprolol Tartrate 1 Tablet (of 50 mg) Oral daily, Symbicort 1 puff(s) (of 160-4.5 mcg/act) Aerosol Inhalation b.i.d., Tamsulosin HCl 2 Capsule (of 0.4 mg) Oral daily, Vitamin D3 1 Capsule Oral daily, Xarelto 1 Tablet (of 20 mg) Oral daily Allergies: No Known Allergies. Vital Signs: Performed on Feb 27, 2021 15:09 Height - 72.00 in Weight - 264 lbs (LOW) BSA - 2.40 sq.m BMI - 35.81 (HIGH) Temperature - 97.6 F (LOW) Pulse - 68 /min Respiration - 18 /min BP - 127/74 mm(hg) O2 Sat - 97 % Pain - 2 Fatigue - 0 Physical Examination: Constitutional - He looks pretty good generally, Eyes - Sclerae nonicteric. Conjunctivae clear, ENMT - No lesions noted in the oral cavity, Hematologic/Lymphatic - No cervical, clavicular, or axillary adenopathy, Respiratory - Lungs sound clear with some decrease in air movement bilaterally, Cardiovascular - Heart rhythm is regular. There is no murmur, gallop, or rub noted, Abdomen - Moderately distended. Liver and spleen are not enlarged. There is no abdominal mass or ascites noted and there is no inguinal adenopathy, Extremities - No edema, Neurologic - No focal neurologic deficits noted. Lab/Imaging: Test performed on Feb 27, 2021 13:35 Ferritin 82 ng/mL Iron 76 mcg/dL Sodium 137 mmol/L Iron Binding Capacity (TIBC) 282 mcg/dl Potassium 3.8 mmol/L % Iron Saturation 26.9 % Chloride 100 mmol/L CO2 22 mmol/L UIBC 206 mcg/dL Anion Gap 18.8 BUN 20 mg/dL Creatinine 2.0 mg/dL Cr Clearance (Est) 55.72 mL/min Glucose 199 mg/dL Osmolality - Calculated 292 mOsm/kg Calcium 9.5 mg/dL Protein, Total 6.7 g/dL Albumin 4.2 g/dL Globulin 2.5 g/dL Bilirubin, Total 0.5 mg/dL ALT (SGPT) 14 U/L AST (SGOT) 16 U/L Alkaline Phosphatase 69 IU/L WBC 7.5 10 3/uL RBC 3.76 10 6/uL HGB 11.8 g/dL HCT 37.0 % MCV 98.4 fl MCH 31.4 pg MCHC 31.9 g/dL RDW 14.5 % Platelet Count 265 10 3/cmm MPV 9.8 fL Neutrophils 6.37 10 3/uL Lymphocytes 0.6 10 3/uL Monocytes 0.4 10 3/uL Eosinophils 0.1 10 3/uL Basophils 0.1 10 3/uL Neutrophil % 84.6 % Lymphocyte % 7.4 % Monocyte % 5.7 % Eosinophil % 0.9 % Basophils % 0.7 % NRBC % 0 % Problem List: 1. Moderately severe anemia with serum iron studies consistent with iron deficiency. He remained anemic despite oral and parenteral iron replacement. Bone marrow aspiration/biopsy on 11/23/2018 showed iron deficiency and no other diagnostic abnormality. 2. He had low TSH, consistent with hyperthyroidism, and he associated tachycardia and shortness of breath. 3. Hypertension. 4. Hyperlipidemia. 5. Type II diabetes. 6. Chronic kidney disease. 7. Coronary artery disease. 8. Atrial fibrillation. 9. Obstructive sleep apnea. 10. Benign prostatic hypertrophy. Problems Addressed with this Encounter and Plan: Patient with persistent anemia. This is likely to be multifactorial. He had documented iron deficiency by bone marrow aspiration/biopsy in November 2018. During subsequent follow-up he has remained mildly anemic despite iron replacement, and I suspect he may have a component of chronic disease anemia. I cannot exclude the possibility of a developing myelodysplastic syndrome. However, there was no evidence of that in his bone marrow aspiration/biopsy, and as long as he is just mildly anemic and otherwise stable clinically, he can continue with expectant management. At this point I will just have him continue his regular follow-[facility] with Dr[facility] I will see him again as needed. Signed By: Hernan Gasca M.D. <<Signature on File>>
== END 2021-02-27 13:13 | disposition home or self-care (01) ==
PROVIDERS: PCP Internal Medicine; Visit Provider Internal Medicine Medical Oncology
DX: D64.9 Anemia, unspecified (principal); Z79.899 Other long term (current) drug therapy; Z79.82 Long term (current) use of aspirin; Z79.84 Long term (current) use of oral hypoglycemic drugs
CPT/HCPCS: 36415; 80053; 82728; 83540; 83550; 85025; G0463

== ENCOUNTER 2021-03-08 14:45 | Outpatient (RCR) | payer SELFPAY | END 2021-04-05 23:59 | disposition home or self-care (01) | LOC: CR 14:45 | PROVIDERS: PCP Internal Medicine; Referring Provider Internal Medicine; Visit Provider Internal Medicine | DX: I25.10 Atherosclerotic heart disease of native coronary artery without angina pectoris (principal) ==

== ENCOUNTER 2021-04-06 10:29 | Outpatient (RCR) | payer SELFPAY | END 2021-05-06 23:59 | disposition home or self-care (01) | LOC: CR 10:29 | PROVIDERS: PCP Internal Medicine; Referring Provider Internal Medicine; Visit Provider Internal Medicine | DX: I25.10 Atherosclerotic heart disease of native coronary artery without angina pectoris (principal) ==

== ENCOUNTER 2021-05-07 14:28 | Outpatient (RCR) | payer SELFPAY | END 2021-06-05 23:59 | disposition home or self-care (01) | LOC: CR 14:28 | PROVIDERS: PCP Internal Medicine; Referring Provider Internal Medicine; Visit Provider Internal Medicine | DX: I25.10 Atherosclerotic heart disease of native coronary artery without angina pectoris (principal) ==

== ENCOUNTER 2021-06-06 13:40 | Outpatient (RCR) | payer SELFPAY | END 2021-07-06 23:59 | disposition home or self-care (01) | LOC: CR 13:40 | PROVIDERS: PCP Internal Medicine; Referring Provider Internal Medicine; Visit Provider Internal Medicine | DX: I25.10 Atherosclerotic heart disease of native coronary artery without angina pectoris (principal) ==

== ENCOUNTER 2021-07-09 11:17 | Outpatient (RCR) | payer SELFPAY | END 2021-08-06 23:59 | disposition home or self-care (01) | LOC: CR 11:17 | PROVIDERS: PCP Internal Medicine; Referring Provider Internal Medicine; Visit Provider Internal Medicine | DX: I25.10 Atherosclerotic heart disease of native coronary artery without angina pectoris (principal) ==

== ENCOUNTER 2021-08-07 09:35 | Outpatient (RCR) | payer SELFPAY | END 2021-09-03 23:59 | disposition home or self-care (01) | LOC: CR 09:35 | PROVIDERS: PCP Internal Medicine; Referring Provider Internal Medicine; Visit Provider Internal Medicine | DX: I25.10 Atherosclerotic heart disease of native coronary artery without angina pectoris (principal) ==

== ENCOUNTER 2021-09-04 13:37 | Outpatient (RCR) | payer SELFPAY | END 2021-10-04 23:59 | disposition home or self-care (01) | LOC: CR 13:37 | PROVIDERS: PCP Internal Medicine; Referring Provider Internal Medicine; Visit Provider Internal Medicine | DX: I25.10 Atherosclerotic heart disease of native coronary artery without angina pectoris (principal) ==

== ENCOUNTER 2021-10-05 14:04 | Outpatient (RCR) | payer SELFPAY | END 2021-11-03 23:59 | disposition home or self-care (01) | LOC: CR 14:04 | PROVIDERS: PCP Internal Medicine; Referring Provider Internal Medicine; Visit Provider Internal Medicine | DX: I25.10 Atherosclerotic heart disease of native coronary artery without angina pectoris (principal) ==

== ENCOUNTER → 2021-10-24 14:56 | Outpatient (BNVA) | payer MEDICARE, OTHER, SELFPAY | PROVIDERS: PCP Internal Medicine; Visit Provider Specialist | DX: M17.0 Bilateral primary osteoarthritis of knee (principal); M71.21 Synovial cyst of popliteal space [Baker], right knee | CPT/HCPCS: 73560; 73565; 99213; 99214 ==

== ENCOUNTER 2021-11-05 13:12 | Outpatient (RCR) | payer SELFPAY | END 2021-12-04 23:59 | disposition home or self-care (01) | LOC: CR 13:12 | PROVIDERS: PCP Internal Medicine; Referring Provider Internal Medicine; Visit Provider Internal Medicine | DX: I25.10 Atherosclerotic heart disease of native coronary artery without angina pectoris (principal) ==

== ENCOUNTER → 2021-11-23 11:22 | Outpatient (BNVA) | payer MEDICARE, OTHER, SELFPAY | PROVIDERS: PCP Internal Medicine; Visit Provider Internal Medicine | DX: I25.10 Atherosclerotic heart disease of native coronary artery without angina pectoris (principal); I48.91 Unspecified atrial fibrillation; G47.30 Sleep apnea, unspecified; I10 Essential (primary) hypertension; E66.9 Obesity, unspecified; Z68.35 Body mass index [BMI] 35.0-35.9, adult; I25.5 Ischemic cardiomyopathy; E78.5 Hyperlipidemia, unspecified; E11.9 Type 2 diabetes mellitus without complications; Z95.1 Presence of aortocoronary bypass graft; I73.9 Peripheral vascular disease, unspecified; Z79.84 Long term (current) use of oral hypoglycemic drugs | CPT/HCPCS: 99214 ==

== ENCOUNTER 2021-12-06 13:04 | Outpatient (RCR) | payer SELFPAY | END 2022-01-03 23:59 | disposition home or self-care (01) | LOC: CR 13:04 | PROVIDERS: PCP Internal Medicine; Referring Provider Internal Medicine; Visit Provider Internal Medicine | DX: I25.10 Atherosclerotic heart disease of native coronary artery without angina pectoris (principal) ==

== ENCOUNTER → 2021-12-20 07:47 | Outpatient (BNVA) | payer MEDICARE, OTHER, SELFPAY | PROVIDERS: PCP Internal Medicine; Visit Provider Specialist | DX: M17.0 Bilateral primary osteoarthritis of knee (principal) | CPT/HCPCS: 20610 ==

== ENCOUNTER 2021-12-27 07:04 | Outpatient (CLI) | payer MEDICARE, OTHER, SELFPAY ==
--- NOTE | 2021-12-27 07:15 | USCV_ITS ---
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 Normal Doppler flow velocities. Mild diffuse plaque in the iliac and femoral arteries bilaterally. The dorsalis pedis and posterior arteries were found to be noncompressible bilaterally CONCLUSIONS 1. Noncompressible ankle vessels bilaterally. 2. Mild diffuse plaque in the iliac and femoral arteries bilaterally. 3. Normal Doppler velocities and waveforms bilaterally. 4. No significant arterial obstruction, based on the above findings Dr Humberto Alfaro MD [facility] (Electronically Signed) Final Date: 28 December 2021 16:16 S
== END 2021-12-27 07:05 | disposition home or self-care (01) ==
LOC: RAD 07:05
PROVIDERS: PCP Internal Medicine; Visit Provider Internal Medicine
DX: I70.203 Unspecified atherosclerosis of native arteries of extremities, bilateral legs (principal); M79.605 Pain in left leg; M79.604 Pain in right leg
CPT/HCPCS: 93925

== ENCOUNTER 2022-01-04 11:47 | Outpatient (RCR) | payer SELFPAY | END 2022-02-03 23:59 | disposition home or self-care (01) | LOC: CR 11:47 | PROVIDERS: PCP Internal Medicine; Referring Provider Internal Medicine; Visit Provider Internal Medicine | DX: I25.10 Atherosclerotic heart disease of native coronary artery without angina pectoris (principal) ==

== ENCOUNTER 2022-02-04 12:30 | Outpatient (RCR) | payer SELFPAY | END 2022-03-06 23:59 | disposition home or self-care (01) | LOC: CR 12:30 | PROVIDERS: PCP Internal Medicine; Referring Provider Internal Medicine; Visit Provider Internal Medicine | DX: I25.10 Atherosclerotic heart disease of native coronary artery without angina pectoris (principal) ==

== ENCOUNTER 2022-03-07 15:13 | Outpatient (RCR) | payer SELFPAY | END 2022-04-05 23:59 | disposition home or self-care (01) | LOC: CR 15:13 | PROVIDERS: PCP Internal Medicine; Referring Provider Internal Medicine; Visit Provider Internal Medicine | DX: I25.10 Atherosclerotic heart disease of native coronary artery without angina pectoris (principal) ==

== ENCOUNTER → 2022-03-13 13:13 | Outpatient (BNVA) | payer OTHER, SELFPAY | PROVIDERS: PCP Internal Medicine; Visit Provider Surgery | DX: R19.5 Other fecal abnormalities (principal) | CPT/HCPCS: 99203 ==

== ENCOUNTER → 2022-03-28 08:16 | Outpatient (BNVA) | payer MEDICARE, OTHER, SELFPAY | PROVIDERS: PCP Internal Medicine; Visit Provider Specialist | DX: M17.0 Bilateral primary osteoarthritis of knee (principal) | CPT/HCPCS: 20610; J1100; J2795; J3301 ==

== ENCOUNTER 2022-05-07 10:37 | Outpatient (RCR) | payer SELFPAY | END 2022-06-05 23:59 | disposition home or self-care (01) | LOC: CR 10:37 | PROVIDERS: PCP Internal Medicine; Referring Provider Internal Medicine; Visit Provider Internal Medicine | DX: I25.10 Atherosclerotic heart disease of native coronary artery without angina pectoris (principal) ==

== ENCOUNTER 2022-05-23 06:23 | Day surgery (SDC) | payer OTHER, SELFPAY ==
[2022-05-21 13:10] VITALS: BMI 34.7
[2022-05-23 06:40] VITALS: BP 164/94; PULSE 57; RESP 18; TEMP 36.7; O2SAT 99
--- NOTE | 2022-05-23 06:41 | P.HP_ITS ---
Same Day Surgery H&P Indication for Procedure/HPI DATE OF PROCEDURE: May 23, 2022 CHIEF COMPLAINT/INDICATIONFOR SURGICAL PROCEDURE: Blood in stool PREOP DIAGNOSIS: Occult blood positive in stool PLANNED PROCEDURE: Operation Date: 05/23/22 07:30 Proposed Procedures p Colonoscopy 96118,R19.5(Not Applicable) - Chris Pike MD 03/13/22 This Is a pleasant 76 years old gentleman presents today to my practice with history of occult blood positive in stool.? Patient had a colonoscopy when he turned 72 and was reported as normal per his description.? He denies history of colon cancer. 05/23/22 Patient comes today for colonoscopy. ROS All systems have been reviewed negative except as for the above or per problem list. Medications/Allergies* Home Medications Medication Instructions Recorded Confirmed Type aspirin 81 mg tablet,delayed 81 mg PO DAILY 09/07/19 05/21/22 History release (Adult Low Dose Aspirin) atorvastatin 40 mg tablet 40 mg PO DAILY 09/07/19 05/23/22 History cholecalciferol (vitamin D3) 50 2,000 unit PO QAM 09/07/19 05/23/22 History mcg (2,000 unit) capsule insulin glargine 100 unit/mL See Rx Instructions .Route .COMPLEX 09/07/19 05/21/22 History subcutaneous solution (Lantus U-100 Insulin) potassium chloride 10 mEq 10 meq PO DAILY 09/07/19 05/23/22 History capsule,extended release rivaroxaban 20 mg tablet (Xarelto) 20 mg PO DAILY 09/07/19 05/21/22 History sitagliptin 100 mg tablet (Januvia) 100 mg PO DAILY 09/07/19 05/23/22 History tamsulosin 0.4 mg capsule (Flomax) 0.4 mg PO DAILY 09/07/19 05/23/22 History metformin 1,000 mg tablet 1,000 mg PO BID 11/05/19 05/23/22 History lisinopril 20 mg tablet 20 mg PO BID 11/10/19 05/23/22 History furosemide 40 mg tablet 20 mg PO DAILY 05/16/21 05/23/22 History metoprolol succinate 50 mg 25 mg PO BID 11/23/21 05/23/22 History tablet,extended release 24 hr Allergies/Adverse Reactions Allergy/AdvReac Type Severity Reaction Status Date / Time No Known Allergies Allergy Verified 05/23/22 06:42 Pertinent History/Comorbid Conditions* Medical History (Updated 03/13/22 @ 13:54 by Chris Pike MD) Anticoagulation adequate with anticoagulant therapy Xarelto Atrial fibrillation BPH loc w urin obs/LUTS CAD (coronary artery disease) Diabetes Dyslipidemia Elevated PSA Essential hypertension Ischemic cardiomyopathy Morbid obesity Obesity Peripheral arterial disease Sleep apnea Urinary retention Surgical History (Updated 12/16/19 @ 00:37 by Dino Santoro DO) H/O knee surgery History of carpal tunnel surgery of right wrist S/P appendectomy S/P CABG (coronary artery bypass graft) S/P cataract surgery S/P decompression of ulnar nerve at elbow S/P hernia repair Family History (Updated 08/27/19 @ 13:32 by Any Devries RN) Father Mother Diabetes Family/Other CAD (coronary artery disease) Mother Father Hypertension Family/Other Stroke Mother Social History Smoking and tobacco status: never smoked Alcohol intake: current Alcohol intake frequency: 0-2 Drinks per Day Alcohol type: wine Adopted: No Caregiver/support person: No Marital status: / Current occupational status: retired History of recent travel: No Current gender identity: Male Pertinent Exam Findings alert, oriented x 3, regular rate & rhythm and procedure specific exam findings (Abdominal exam nontender nondistended soft) Recommendations Surgery/Procedure today (Colonoscopy with possible biopsy) Coding Level of Care Code Acute Destination Specialist for Lee Bangura
--- NOTE | 2022-05-23 06:52 | P.ANESASSM_ITS ---
Pre-Anesthetic Assessment Height/Weight: Height 1.83 m Weight 116.12 kg Temp Pulse Resp BP Pulse Ox O2 Del Method 98.1 F 57 L 18 164/94 99 05/23/22 06:40 05/23/22 06:40 05/23/22 06:40 05/23/22 06:40 05/23/22 06:40 05/23/22 06:40 Preop Diagnosis: Occult blood positive in stool Operation Date: 05/23/22 07:30 Proposed Procedures p Colonoscopy 54375,R19.5(Not Applicable) - Chris Pike MD Familial anesthetic complications: none Was Beta Sarajbit taken within 24 hours: Yes Was Clonidine taken within 24 hours: N/A Last intake: Intake Last Liquid Date 05/22/22 Last Liquid Time 20:30 Last Solid Date 05/22/22 Last Solid Time 08:30 Social No alcohol and No tobacco Exam alert and oriented x 3 History/ROS No significant history except as noted Pulmonary Sleep Apnea (cpap) and Shortness of Breath CV/HEM Atrial Fibrillation (ablation in 2018), Coronary Artery Disease (double bypass in 2013) and Hypertension None reported Hepatic None reported GI None reported Metabolic Diabetes Mellitus, Hyperlipidemia and Morbid Obesity [facility] [place] None reported Neuropsych None reported Anesthetic Plan ASA status: 3 Anesthesia: Anesthesia Evaluation and MAC Risk of > 500 ml blood loss (7ml/kg in children): No Medications/Allergies Home Medications Medication Instructions Recorded Confirmed Last Taken Type aspirin 81 mg tablet,delayed 81 mg PO DAILY 09/07/19 05/21/22 05/21/22 History release (Adult Low Dose Aspirin) atorvastatin 40 mg tablet 40 mg PO DAILY 09/07/19 05/23/22 05/22/22 History cholecalciferol (vitamin D3) 50 2,000 unit PO QAM 09/07/19 05/23/22 05/22/22 History mcg (2,000 unit) capsule insulin glargine 100 unit/mL See Rx Instructions .Route .COMPLEX 09/07/19 05/21/22 01/10/20 History subcutaneous solution (Lantus U-100 Insulin) potassium chloride 10 mEq 10 meq PO DAILY 09/07/19 05/23/22 05/22/22 History capsule,extended release rivaroxaban 20 mg tablet (Xarelto) 20 mg PO DAILY 09/07/19 05/21/22 05/20/22 History sitagliptin 100 mg tablet (Januvia) 100 mg PO DAILY 09/07/19 05/23/22 05/22/22 History tamsulosin 0.4 mg capsule (Flomax) 0.4 mg PO DAILY 09/07/19 05/23/22 05/22/22 History metformin 1,000 mg tablet 1,000 mg PO BID 11/05/19 05/23/22 05/22/22 History lisinopril 20 mg tablet 20 mg PO BID 11/10/19 05/23/22 05/22/22 History oxycodone-acetaminophen 5 mg-325 1 tab PO Q4H PRN pain #40 tabs 12/09/19 05/23/22 05/22/22 Rx mg tablet furosemide 40 mg tablet 20 mg PO DAILY 05/16/21 05/23/22 05/22/22 History metoprolol succinate 50 mg 25 mg PO BID 11/23/21 05/23/22 05/23/22 History tablet,extended release 24 hr sotalol 80 mg tablet 80 mg PO BID #180 tabs 12/24/21 05/23/22 05/23/22 Rx amlodipine 10 mg tablet 10 mg PO DAILY #90 tabs 12/25/21 05/23/22 05/23/22 Rx Allergies Allergy/AdvReac Type Severity Reaction Status Date / Time No Known Allergies Allergy Verified 05/23/22 06:42 PFS Anesthesia Medical History Anticoagulation adequate with anticoagulant therapy Xarelto Atrial fibrillation BPH loc w urin obs/LUTS CAD (coronary artery disease) Diabetes Dyslipidemia Elevated PSA Essential hypertension Ischemic cardiomyopathy Morbid obesity Obesity Peripheral arterial disease Sleep apnea Urinary retention Surgical History H/O knee surgery History of carpal tunnel surgery of right wrist S/P appendectomy S/P CABG (coronary artery bypass graft) S/P cataract surgery S/P decompression of ulnar nerve at elbow S/P hernia repair Family History Mother CAD (coronary artery disease) Stroke Father CAD (coronary artery disease) Family/Other Diabetes Hypertension Social History Smoking and tobacco status: never smoked Alcohol intake: current Alcohol intake frequency: 0-2 Drinks per Day Alcohol type: wine Adopted: No Caregiver/support person: No Marital status: / Current occupational status: retired History of recent travel: No Current gender identity: Male Data Anesthesia Cardiac Studies: No Data to Display
[2022-05-23] MEDS: sodium chloride 0.9% 1,000 ML 30 ML IV (06:53)
[2022-05-23 07:00] LABS: Glucose Point of Care 114 mg/dL (70-110)
[2022-05-23 08:02] VITALS: BP 125/77; PULSE 55; RESP 20; TEMP 36.4; O2SAT 92
--- NOTE | 2022-05-23 08:04 | ANE.PACU2 ---
Inpatient post-anesthesia follow up: Airway intact: Yes Vital signs: Temperature 97.5 F Pulse Rate 55 Respiratory Rate 20 Blood Pressure 125/77 Pulse Oximetry 92 Oxygen Delivery Me thod Room Air Oxygen Flow Rate Fraction of Inspir ed Oxygen Hydration adequate: Yes Nausea and vomiting: No Pain level: 1 Mental status: Baseline
[2022-05-23 08:12] VITALS: BP 99/73; PULSE 53; RESP 18; O2SAT 96
== END 2022-05-23 08:36 | disposition home or self-care (01) ==
PROVIDERS: PCP Internal Medicine; Visit Provider Surgery
PROC: 0DJD8ZZ Inspection of Lower Intestinal Tract, Via Natural or Artificial Opening Endoscopic (ICD-10-PCS; CPT 45378; principal; 2022-05-23 07:30)
DX: R19.5 Other fecal abnormalities (principal); D12.2 Benign neoplasm of ascending colon; D12.5 Benign neoplasm of sigmoid colon; K57.30 Diverticulosis of large intestine without perforation or abscess without bleeding; G47.30 Sleep apnea, unspecified; I48.91 Unspecified atrial fibrillation; I25.10 Atherosclerotic heart disease of native coronary artery without angina pectoris; I10 Essential (primary) hypertension; E11.9 Type 2 diabetes mellitus without complications; Z79.4 Long term (current) use of insulin; E78.5 Hyperlipidemia, unspecified; E66.01 Morbid (severe) obesity due to excess calories; Z68.34 Body mass index [BMI] 34.0-34.9, adult; Z79.82 Long term (current) use of aspirin; Z79.01 Long term (current) use of anticoagulants; N40.1 Benign prostatic hyperplasia with lower urinary tract symptoms; N13.8 Other obstructive and reflux uropathy; Z95.1 Presence of aortocoronary bypass graft
CPT/HCPCS: 36416; 45385; 82962; J2704; J7030

== ENCOUNTER 2022-06-06 14:40 | Outpatient (RCR) | payer SELFPAY | END 2022-07-06 23:59 | disposition home or self-care (01) | LOC: CR 14:40 | PROVIDERS: PCP Internal Medicine; Referring Provider Internal Medicine; Visit Provider Internal Medicine | DX: I25.10 Atherosclerotic heart disease of native coronary artery without angina pectoris | CPT/HCPCS: 99212 ==

== ENCOUNTER → 2022-06-13 12:38 | Outpatient (BNVA) | payer MEDICARE, OTHER, SELFPAY | PROVIDERS: PCP Internal Medicine; Visit Provider Internal Medicine Cardiovascular Disease | DX: I25.10 Atherosclerotic heart disease of native coronary artery without angina pectoris (principal); Z95.1 Presence of aortocoronary bypass graft; E11.9 Type 2 diabetes mellitus without complications; Z79.4 Long term (current) use of insulin; I25.5 Ischemic cardiomyopathy; I73.9 Peripheral vascular disease, unspecified; E78.5 Hyperlipidemia, unspecified; G47.30 Sleep apnea, unspecified; I10 Essential (primary) hypertension; E66.9 Obesity, unspecified; Z68.36 Body mass index [BMI] 36.0-36.9, adult; I48.91 Unspecified atrial fibrillation; Z79.01 Long term (current) use of anticoagulants | CPT/HCPCS: 99213 ==

== ENCOUNTER → 2022-06-27 09:39 | Outpatient (BNVA) | payer MEDICARE, OTHER, SELFPAY | PROVIDERS: PCP Internal Medicine; Visit Provider Specialist | DX: M17.0 Bilateral primary osteoarthritis of knee (principal); Z71.89 Other specified counseling | CPT/HCPCS: 20610; J1100; J2795; J3301 ==

== ENCOUNTER 2022-07-10 12:44 | Outpatient (RCR) | payer SELFPAY | END 2022-08-06 23:59 | disposition home or self-care (01) | LOC: CR 12:44 | PROVIDERS: PCP Internal Medicine; Referring Provider Internal Medicine; Visit Provider Internal Medicine | DX: I25.10 Atherosclerotic heart disease of native coronary artery without angina pectoris ==

== ENCOUNTER 2022-08-07 14:54 | Outpatient (RCR) | payer SELFPAY | END 2022-09-03 23:59 | disposition home or self-care (01) | LOC: CR 14:54 | PROVIDERS: PCP Internal Medicine; Referring Provider Internal Medicine; Visit Provider Internal Medicine | DX: I25.10 Atherosclerotic heart disease of native coronary artery without angina pectoris ==

== ENCOUNTER 2022-09-04 14:55 | Outpatient (RCR) | payer SELFPAY | END 2022-10-04 23:59 | disposition home or self-care (01) | LOC: CR 14:55 | PROVIDERS: PCP Internal Medicine; Referring Provider Internal Medicine; Visit Provider Internal Medicine | DX: I25.10 Atherosclerotic heart disease of native coronary artery without angina pectoris ==

== ENCOUNTER 2022-10-07 13:00 | Outpatient (RCR) | payer SELFPAY | END 2022-11-03 23:59 | disposition home or self-care (01) | LOC: CR 13:00 | PROVIDERS: PCP Internal Medicine; Referring Provider Internal Medicine; Visit Provider Internal Medicine | DX: I25.10 Atherosclerotic heart disease of native coronary artery without angina pectoris ==

== ENCOUNTER 2022-10-10 08:47 | Outpatient (CLI) | payer MEDICARE, OTHER, SELFPAY ==
[2022-10-10 09:16] VITALS: BMI 34.3
--- NOTE | 2022-10-10 09:19 | ECG_ITS ---
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 Interpretive Statements NAME OF STUDY: LEXISCAN SESTAMIBI STRESS TEST INDICATION: [Chest Pain; Shortness of Breath, ] Procedure: At the baseline, the blood pressure was 123/79 mmHg with a heart rate of 52 bpm. The electrocardiogram showed sinus bradycardia, normal axis with normal ST and T's. The Lexiscan was infused over a period of 20 seconds. A total of 0.4 mg of Lexiscan was infused. The stress phase was continued for a total of 5 minutes. Heart rate was at the end of stress phase was 63 bpm and a blood pressure of 99/60mmHg. The EKG at the peak infusion revealed normal sinus rhythm with no significant ST-T wave changes. Sestamibi was injected 20 seconds after the Lexiscan infusion. Blood pressure at the end of recovery phase was 122/70 mmHg with a heart rate of 54 bpm. Conclusion: 1. Normal EKG response to Lexiscan infusion 2. No Lexiscan induced chest pain or cardiac arrhythmia. 3. Normal blood pressure and heart rate response. 4. Sestamibi/sestamibi perfusion scan pending; see separate report. Electronically Signed On 10-13-2022 15:13:08 CDT by Alek Parker M.D. [id number]
--- NOTE | 2022-10-10 09:19 | NMCV_ITS ---
NM martha perf SPECT r/s* [id number] Nicolas Romero Age: 76 Gender: M : 1945 Exam Date: 10/10/2022 09:49 Ordering Phys: Alek Parker M.D ([email or web address]) Technologist: JUAN Heard Exam Location: [facility] Indications: CHEST PAIN, SHORTNESS OF BREATH STRESS TEST [facility] IMAGE PROTOCOL Rest/Stress 1 Lexiscan Day Radiopharmaceutical Dose (mCi) Administration Site Administered by Rest: Tc-99m 10.8 IV JUAN Abad Sestamibi Stress:Tc-99m 32.3 IV JUAN Abad Sestamibi Rest: 10-Oct-2022 60 Discovery 630 Stress: 10-Oct-2022 30 Discovery 630 0.4mg Lexiscan. Images obtained in supine and prone position. SPECT RESULTS Technical Quality: Excellent Raw Data Analysis: Normal Image Corrections: No attenuation or motion correction applied Summed Stress Score: 13 Summed Rest Score: 16 Summed Difference Score: 0 PERFUSION FINDINGS Large sized, fixed perfusion defect noted on apical inferior, inferior and inferolateral valencia. 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 FUNCTIONAL RESULTS (calculated via Gated SPECT) Stress Image LV EF (%): 51 Stress EDV (mL):166 TID: 1.01 Stress ESV (mL):81 FUNCTIONAL FINDINGS: There is normal left ventricular systolic function. IMPRESSIONS 1. 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 No significant ischemia seen. 2. LV systolic function is normal. Alek Parker MD (Electronically Signed) Final Date: 11 October 2022 08:49 S
[2022-10-10] MEDS: regadenoson 0.4 Mg/5 ml Syringe IVP (10:02)
[2022-10-10] MEDS: aminophylline 25 mg/mL SDV 10 mL IVP (10:31)
[2022-10-10 11:35] VITALS: BP 122/70; PULSE 55
== END 2022-10-10 08:48 | disposition home or self-care (01) ==
LOC: CDL 08:50
PROVIDERS: PCP Internal Medicine; Visit Provider Internal Medicine
DX: R07.9 Chest pain, unspecified (principal); R06.02 Shortness of breath
CPT/HCPCS: 36415; 78452; 93017; 96374; 96375; A9500; J0280; J2785

== ENCOUNTER 2022-10-26 00:49 | Emergency (ER) | payer MEDICARE, OTHER, SELFPAY ==
[2022-10-26 01:07] VITALS: BP 169/72; PULSE 66; RESP 18; TEMP 36.9; O2SAT 96; BMI 35.1
[2022-10-26 01:17] LABS: Add Urine Microscopic? NO; Charge for UA Resulting for Rev
[2022-10-26 01:24] LABS: Bilirubin Urine Neg (Negative); Blood Urine Neg (Negative); Glucose Urine UA 1+ (Normal); Ketones Urine Negative (Negative); Leukocyte Esterase Urine Negative (Negative); Nitrate Urine Negative (Negative); Protein Urine Neg (Negative); Specific Gravity, Urine 1.015 (1.005-1.030); Urine Appearance Clear (CLEAR); Urine Color Colorless (Yellow); Urobilinogen Urine Norm (Negative); pH Urine 6 (5-7)
[2022-10-26] MEDS: lidocaine 2% Urojet 20 mL TOPICAL (03:09)
--- NOTE | 2022-10-26 04:47 | W.ED.MALEGU ---
HPI - Male Genitourinary General: Chief complaint: Urogenital-Male Stated complaint: urine retention, TKR yesterday Time Seen by Provider: 10/26/22 02:47 Source: patient History of Present Illness: 76-year-old gentleman who underwent total knee arthroplasty day before yesterday. He had some problems with urinary retention, and was catheterized twice during his hospital stay before being discharged home. After being discharged home, he has a feeling of urgency, but has only dribbled urine. He has been able to go a couple 100 cc a couple of times, but that is the most he has been going. He is experiencing pelvic discomfort, mainly in the form of pressure MD Complaint: other Onset (ago): hour(s) Duration: constant Location: abdomen Radiation: right flank and left flank Severity: moderate Quality: aching Relieving factors: urination Exacerbating factors: none Context: recent surgery Associated symptoms: Reports urinary retention; Deny discharge, dysuria, fevers/chills, hematuria, nausea, swelling, urinary incontinence or vomiting Review of Systems Const: Denies: fever(s) Card: Denies: chest pain Resp: Denies: dyspnea GI: Reports: abdominal pain; Denies: nausea or vomiting : Denies: dysuria, urinary incontinence or hematuria Musc: Reports: back pain PFSH ED PFSH: Medical History Anticoagulation adequate with anticoagulant therapy Xarelto Atrial fibrillation BPH loc w urin obs/LUTS CAD (coronary artery disease) Diabetes Dyslipidemia Elevated PSA Essential hypertension Ischemic cardiomyopathy Morbid obesity Obesity Peripheral arterial disease Sleep apnea Urinary retention Surgical History H/O knee surgery History of carpal tunnel surgery of right wrist S/P appendectomy S/P CABG (coronary artery bypass graft) S/P cataract surgery S/P decompression of ulnar nerve at elbow S/P hernia repair Family History Mother CAD (coronary artery disease) Stroke Father CAD (coronary artery disease) Family/Other Diabetes Hypertension Social History Smoking and tobacco status: never smoked Alcohol intake: current Alcohol intake frequency: 0-2 Drinks per Day Alcohol type: wine Substance/Drug Use: never Adopted: No Caregiver/support person: No Marital status: / Current occupational status: retired Current gender identity: Male Physical Exam Const: COMMON NORMALS: no acute distress GENERAL APPEARANCE: cooperative; not ill appearing and not frail appearing HENMT: COMMON NORMALS: normocephalic, atraumatic and Normal external nose present HEAD & SCALP: normocephalic and atraumatic FACE & SINUS: normal facial exam and face symmetric NOSE: Normal external nose present Eye: COMMON NORMALS: Equal, round and reactive pupils present and EOMs intact bilaterally PUPIL: Yes Equal, round and reactive pupils present Neck/C-Spine: GENERAL: Yes trachea midline Chest: CHEST: Yes Symmetrical chest wall rise Resp: COMMON NORMALS: normal respiratory effort, No retractions, No use of accessory muscles and clear to auscultation bilaterally AUSCULTATION: clear to auscultation bilaterally Cardio: COMMON NORMALS: regular rate and regular rhythm RATE: regular rate RHYTHM: regular rhythm GI: COMMON NORMALS: Normal to inspection, nondistended, normoactive bowel sounds present and Soft to palpation PALPATION: Yes Soft to palpation, Yes Tenderness to palpation present (GI) (Suprapubic) and Yes Guarding due to palpation present (GI) Extremity: COMMON NORMALS: no pedal edema Neuro: JOHN COMA SCALE: document GCS findings [place] coma scale eye opening: Spontaneous [place] coma scale verbal response: Orientated John coma scale motor response: Obey commands [place] coma scale total score: 15 SENSORY EXAM: Yes extremities (intact) Psych: COMMON NORMALS: speech normal SPEECH: Yes normal speech Skin: COMMON NORMALS: no rashes or lesions noted GENERAL SKIN EXAM: no rashes or lesions noted Course Vital Signs: Vital signs: Vital Signs Temperature 98.4 F 10/26/22 01:07 Pulse Rate 66 10/26/22 01:07 Respiratory Rate 18 10/26/22 01:07 Blood Pressure 169/72 10/26/22 01:07 Pulse Oximetry 96 10/26/22 01:07 Oxygen Delivery Me thod Room Air 10/26/22 01:07 [facility] - Male Medical Decision Making Mims catheter was placed. Clear urine was expelled. Clean-catch urine shows no evidence of urinary tract infection. No significant resistance on placement of Mims catheter. We will leave the catheter in, given his extended urinary retention following total knee arthroplasty. He had 1700 cc out by the end of his ER stay. He will see his doctor in 72 hours or so for removal. He knows to return for any new symptoms. Lab Data Laboratory Results Urine Color Colorless (Yellow) 10/26/22 01:15 Urine Appearance Clear (CLEAR) 10/26/22 01:15 Urine pH 6 (5-7) 10/26/22 01:15 Ur Specific [place] 1.015 (1.005-1.030) 10/26/22 01:15 Urine Protein Neg (Negative) 10/26/22 01:15 Urine Glucose (UA) 1+ (Normal) H 10/26/22 01:15 Urine Ketones Negative (Negative) 10/26/22 01:15 Urine Blood Neg (Negative) 10/26/22 01:15 Urine Nitrate Negative (Negative) 10/26/22 01:15 Urine Bilirubin Neg (Negative) 10/26/22 01:15 Urine Urobilinogen Norm mg/dL (Negative) 10/26/22 01:15 Ur Leukocyte Esterase Negative (Negative) 10/26/22 01:15 Discharge Plan Discharge Patient Disposition: Home Clinical Impression: Acute retention of urine Condition: Stable Prescriptions: No Action potassium chloride 10 mEq capsule, extended release 10 meq PO DAILY cholecalciferol (vitamin D3) 50 mcg (2,000 unit) capsule 2,000 unit PO QAM atorvastatin 40 mg tablet 40 mg PO DAILY tamsulosin [Flomax] 0.4 mg capsule 0.4 mg PO DAILY Lantus U-100 Insulin 100 unit/mL solution See Rx Instructions .ROUTE .COMPLEX Rx Instructions: sliding scale subcutaneously bid Januvia 100 mg tablet 100 mg PO DAILY Xarelto 20 mg tablet 20 mg PO DAILY aspirin [Adult Low Dose Aspirin] 81 mg tablet,delayed release (DR/EC) 81 mg PO DAILY Hold Instructions: Resume on 05/28/22. lisinopril 20 mg tablet 20 mg PO BID Rx Instructions: pt states he thinks this has been increased to 40mg bid furosemide 40 mg tablet 20 mg PO DAILY metformin 1,000 mg tablet 1,000 mg PO BID metoprolol succinate 50 mg tablet extended release 24 hr 25 mg PO BID sotalol 80 mg tablet 80 mg PO BID Qty: 180 3RF amlodipine 10 mg tablet 10 mg PO DAILY Qty: 90 3RF Discharge Orders: Discharge ED (Routine); Ordered 10/26/22 Ordered By: Mahesh Carreon Referrals: Hernan Rees DO [Primary Care Provider] - 4-7 days Patient Instructions: Urinary Retention in Men (ED), Mims Catheter Placement and Care (ED), Opioid Safety, Pain Management Activity Restrictions/Additional Instructions: Return for fever, worsening pelvic pain, lack of output in your catheter tube, significant bleeding, any other concerning symptoms. See your doctor in 3 to 4 days for catheter removal. Coding Level of Care Code ED Team Driver for Lee Bangura
== END 2022-10-26 04:07 | disposition home or self-care (01) ==
PROVIDERS: Emergency Provider Emergency Medicine; PCP Internal Medicine
DX: R33.9 Retention of urine, unspecified (principal); Z79.82 Long term (current) use of aspirin; Z79.4 Long term (current) use of insulin; Z79.84 Long term (current) use of oral hypoglycemic drugs; I25.10 Atherosclerotic heart disease of native coronary artery without angina pectoris; E11.9 Type 2 diabetes mellitus without complications; E78.5 Hyperlipidemia, unspecified; I10 Essential (primary) hypertension; Z95.1 Presence of aortocoronary bypass graft
CPT/HCPCS: 51702; 81003; 99283

== ENCOUNTER 2022-11-05 11:08 | Outpatient (CLI) | payer MEDICARE, OTHER, SELFPAY ==
--- NOTE | 2022-11-05 11:30 | USCV_ITS ---
HeatherNiteshNicolas Age: 76 Gender: M : 1945 Exam Date: 11/05/2022 11:49 Ordering Phys: Fariba Mendoza Technologist: SORAYA Exam Location: [facility] – [place]_ Indication: S/P LEFT TKR 10/24 LLE PAIN AND SWELLING HISTORY: Lower extremity swelling. Lower extremity pain. PROCEDURES: Venous duplex imaging was performed in only the left lower extremity. The following venous structures were evaluated: common femoral vein, profunda vein, proximal portion of the greater saphenous vein, superficial femoral vein, and the popliteal vein. In addition, the posterior tibial and peroneal trunk were evaluated. An evaluation for venous insufficiency was also completed. FINDINGS: Examination was technically limited due to body habitus. No evidence of DVT seen in any vessel visualized at this time. Left Edema seen in Left lower leg Large complex mass in the left popliteal fossa measures 4.5 x 2.8 cm. Solid mass with small amount of fluid. CONCLUSIONS No DVT left lower extremity. Complex mass left popliteal fossa, likely a hemorrhagic cyst or extruded meniscal cyst. MRI if not already obtained my provide additional details. Dr. Any Huff DO (Electronically Signed) Final Date: 05 Nov 2022 12:38 S
== END 2022-11-05 11:09 | disposition home or self-care (01) ==
LOC: RAD 11:11
PROVIDERS: PCP Internal Medicine; Visit Provider Nurse Practitioner Family
DX: I25.10 Atherosclerotic heart disease of native coronary artery without angina pectoris (principal); I48.91 Unspecified atrial fibrillation; R93.6 Abnormal findings on diagnostic imaging of limbs
CPT/HCPCS: 93971; 99214

== ENCOUNTER 2022-11-10 16:11 | Inpatient (IN) | payer MEDICARE, OTHER, SELFPAY ==
[2022-11-10 16:19] VITALS: BP 149/98; PULSE 137; RESP 17; TEMP 38.8; O2SAT 96; BMI 35.5
--- NOTE | 2022-11-10 16:28 | XRR_ITS ---
PROCEDURE INFORMATION: Exam: XR Chest Exam date and time: 11/10/2022 4:55 PM Age: 77 years old Clinical indication: Fever; Prior surgery; Surgery date: 6+ months; Surgery type: Heart; Additional info: Fever, tachy TECHNIQUE: Imaging protocol: Radiologic exam of the chest. Views: 1 view. COMPARISON: CR XR chest 2V* [id number] 07/10/2022 3:28 PM FINDINGS: Lungs: Lungs are clear bilaterally. Pleural spaces: No pleural effusion. No pneumothorax. Heart/Mediastinum: TheStable mild enlargement of the cardiac silhouette. Mediastinal contours are unremarkable. Vasculature: Stable vascular calcifications in the aorta. Stable tortuosity of the aorta. Bones/joints: Unremarkable for age. XR/XR chest 1V portable [id number] IMPRESSION: 1. No acute cardiopulmonary process. 2. Incidental/nonacute findings are listed in the report.
--- NOTE | 2022-11-10 16:30 | ED_ITS ---
Documented by User: Franky Silva DO 11/10/22 16:39 HPI - Weakness General: Chief complaint: Weakness Stated complaint: WEAKNESS; FEVER Time Seen by Provider: 11/10/22 16:21 History of Present Illness: Patient presents today by EMS with overall complaints of generalized weakness and fever. Patient states he went to bed last night just fine but when he woke up this morning he was weak with a fever and unable to walk without falling. Patient did have a knee replacement on the left side on October 24. Complaint: generalized weakness Onset (ago): hour(s) (About 8 hours ago) Duration: constant Location: generalized Migration: none Severity: mild Relieving factors: none Exacerbating factors: none Associated symptoms: Reports no associated symptoms and fever(s); Denies chest pain, nausea or vomiting Review of Systems General: Reports: 10 or more systems reviewed and unremarkable except in HPI and below Const: Reports: fever(s); Denies: body aches or change in appetite Eyes: Denies: change in vision ENMT: Denies: throat pain or enlarged tonsils Card: Reports: irregular heart rhythm and edema; Denies: chest pain or palpitations Resp: Denies: dyspnea, productive cough or non-productive cough GI: Denies: abdominal pain, nausea, vomiting or diarrhea : Denies: flank pain Musc: Denies: neck pain or back pain PFSH ED PFSH: Medical History Anticoagulation adequate with anticoagulant therapy Xarelto Atrial fibrillation BPH loc w urin obs/LUTS CAD (coronary artery disease) Diabetes Dyslipidemia Elevated PSA Essential hypertension Ischemic cardiomyopathy Morbid obesity Obesity Peripheral arterial disease Sleep apnea Urinary retention Surgical History H/O knee surgery History of carpal tunnel surgery of right wrist S/P appendectomy S/P CABG (coronary artery bypass graft) S/P cataract surgery S/P decompression of ulnar nerve at elbow S/P hernia repair Family History Mother CAD (coronary artery disease) Stroke Father CAD (coronary artery disease) Family/Other Diabetes Hypertension Social History Smoking and tobacco status: never smoked Alcohol intake: current Alcohol intake frequency: 0-2 Drinks per Day Alcohol type: wine Substance/Drug Use: never Adopted: No Caregiver/support person: No Marital status: / Current occupational status: retired Current gender identity: Male Physical Exam Const: COMMON NORMALS: no acute distress, average body habitus, patient oriented x3, no limitations, healthy appearing, alert and well nourished HENMT: COMMON NORMALS: normocephalic, atraumatic, hearing grossly normal bilaterally, external ears normal, Normal external nose present and moist oral mucous membranes HEAD & SCALP: normocephalic and atraumatic NOSE: Normal external nose present EXTERNAL EAR: Yes external ears normal Eye: COMMON NORMALS: Equal, round and reactive pupils present, EOMs intact bilaterally, conjunctivae normal and no scleral icterus CONJUNCTIVA: Yes conjunctivae normal PUPIL: Yes Equal, round and reactive pupils present Neck/C-Spine: COMMON NORMALS: full ROM, no lymphadenopathy, supple, no meningeal signs, no JVD and Thyroid normal THYROID: Thyroid normal Lymph: LYMPHATIC: no lymphadenopathy noted Chest: COMMONS NORMALS: normal inspection of the chest and normal palpation of entire chest wall Resp: COMMON NORMALS: normal respiratory effort, No retractions, No use of accessory muscles and clear to auscultation bilaterally AUSCULTATION: clear to auscultation bilaterally Cardio: COMMON NORMALS: no JVD RATE: tachycardic RHYTHM: abnormal rhythm irregularly irregular GI: COMMON NORMALS: Normal to inspection, nondistended, normoactive bowel sounds present, Soft to palpation, non-tender, No hepatosplenomegaly present and no masses PALPATION: Yes Soft to palpation and Yes No hepatosplenomegaly present Neuro: COMMON NORMALS: patient oriented x3, CN's II-XII intact bilaterally, moves all extremities, no focal motor deficits and no sensory deficits noted SENSORIUM/ORIENTATION: Yes alert MENINGEAL SIGNS: Yes no meningeal signs Course Vital Signs: Vital signs: Vital Signs Temperature 98.5 F 11/10/22 19:20 Pulse Rate 105 H 11/10/22 19:01 Respiratory Rate 26 H 11/10/22 19:01 Blood Pressure 120/66 11/10/22 19:01 Pulse Oximetry 93 11/10/22 19:01 Oxygen Delivery Me thod Room Air 11/10/22 19:01 MDM - Weakness Differential Diagnosis Unlikely acute myocardial infarction, anemia, hypoglycemia, hypothyroidism, rhabdomyolysis, sepsis or dehydration Medical Records I reviewed the patient's medical records. Lab Data I reviewed the patient's lab results. 11/10/22 16:43 11/10/22 17:16 Radiology Impressions Chest X-Ray 11/10/22 16:28 IMPRESSION: 1. No acute cardiopulmonary process. 2. Incidental/nonacute findings are listed in the report. Knee X-Ray 11/10/22 20:19 IMPRESSION: 1. No acute fracture of the left knee. Followup imaging recommended in 7-14 days if clinical concern for fracture persists. 2. Patient has had a previous left knee arthroplasty. No evidence for loosening of the surgical hardware. 3. Moderate left knee joint effusion. 4. Moderate soft tissue swelling anterior and medial to the left knee. 5. Incidental/nonacute findings are listed in the report. Laboratory Results WBC 16.4 10^3/uL (4.0-10.0) H 11/10/22 16:43 RBC 3.23 10^6/uL (4.1-5.3) L 11/10/22 16:43 Hgb 10.2 g/dL (11.7-16.6) L 11/10/22 16:43 Hct 30.9 % (42.0-52.0) L 11/10/22 16:43 MCV 95.7 fl (80-94) H 11/10/22 16:43 MCH 31.6 pg (28.0-34.0) 11/10/22 16:43 MCHC 33.0 g/dL (30.0-36.0) 11/10/22 16:43 RDW 14.0 % (12.1-15.1) 11/10/22 16:43 Plt Count 248 10^3/cmm (130-400) 11/10/22 16:43 MPV 10.1 fL (7.4-10.4) 11/10/22 16:43 Neut % (Auto) 89.2 % 11/10/22 16:43 Lymph % (Auto) 2.5 % 11/10/22 16:43 Bradley % (Auto) 7.1 % 11/10/22 16:43 Eos % (Auto) 0.1 % 11/10/22 16:43 Baso % (Auto) 0.2 % 11/10/22 16:43 Neut # (Auto) 14.62 10^3/uL (1.8-7.7) H 11/10/22 16:43 Lymph # (Auto) 0.4 10^3/uL (0.8-4.8) L 11/10/22 16:43 Bradley # (Auto) 1.2 10^3/uL (0.2-0.9) H 11/10/22 16:43 Eos # (Auto) 0.0 10^3/uL (0.0-0.8) 11/10/22 16:43 Baso # (Auto) 0.0 10^3/uL (0.0-0.1) 11/10/22 16:43 Nucleated RBC % (auto) 0 % 11/10/22 16:43 Nucleated RBCs # 0.0 /100WBC 11/10/22 16:43 ESR 22 mm/hr (0-10) H 11/10/22 16:43 PT 18.30 SECONDS (12.1-14.9) H 11/10/22 16:43 INR 1.47 (0.8-1.2) H 11/10/22 16:43 Sodium 128 mmol/L (136-145) L 11/10/22 17:16 Potassium 4.3 mmol/L (3.5-5.1) 11/10/22 17:16 Chloride 90 mmol/L (98-107) L 11/10/22 17:16 Carbon Dioxide 23 mmol/L (22-29) 11/10/22 17:16 Anion Gap 19.3 (5-19) H 11/10/22 17:16 BUN 29 mg/dL (8-23) H 11/10/22 17:16 Creatinine 2.0 mg/dL (0.7-1.2) H 11/10/22 17:16 GFR Calculation Not Reportable 11/10/22 17:16 Glucose 219 mg/dL (65-115) H 11/10/22 17:16 Calculated Osmolality 279 mOsm/kg (285-295) L 11/10/22 17:16 Lactic Acid 2.2 mmol/L (0.5-2.2) 11/10/22 17:16 Lactic Acid (Sepsis) 1.0 mmol/L (0.5-2.2) 11/10/22 20:05 Calcium 9.1 mg/dL (8.5-10.5) 11/10/22 17:16 Total Bilirubin 0.9 mg/dL (0.15-1.2) 11/10/22 17:16 AST 12 U/L (0-40) 11/10/22 17:16 ALT 8 U/L (0-41) 11/10/22 17:16 Alkaline Phosphatase 94 U/L (40-130) 11/10/22 17:16 NT-Pro-B Natriuret Pep 4004 pg/mL (0-450) H 11/10/22 17:16 Total Protein 6.4 g/dL (6.6-8.7) L 11/10/22 17:16 Albumin 3.6 g/dL (3.5-5.2) 11/10/22 17:16 Globulin 2.8 g/dL (1.3-4.6) 11/10/22 17:16 Procalcitonin 0.47 ng/mL (0-0.5) 11/10/22 17:16 Urine Color Dark yellow (Yellow) 11/10/22 18:40 Urine Appearance Clear (CLEAR) 11/10/22 18:40 Urine pH 5 (5-7) 11/10/22 18:40 Ur Specific Grabill 1.010 (1.005-1.030) 11/10/22 18:40 Urine Protein 1+ (Negative) H 11/10/22 18:40 Urine Glucose (UA) Norm (Normal) 11/10/22 18:40 Urine Ketones Negative (Negative) 11/10/22 18:40 Urine Blood 3+ (Negative) H 11/10/22 18:40 Urine Nitrate Negative (Negative) 11/10/22 18:40 Urine Bilirubin Neg (Negative) 11/10/22 18:40 Urine Urobilinogen Norm mg/dL (Negative) 11/10/22 18:40 Ur Leukocyte Esterase Trace (Negative) H 11/10/22 18:40 Urine RBC 80-100 /hpf (0-2) H 11/10/22 18:40 Urine WBC 15-25 /hpf (0-5) H 11/10/22 18:40 Ur Squamous Epith Cells 0-4 /hpf (0-5) H 11/10/22 18:40 Amorphous Sediment Not Reportable 11/10/22 18:40 Urine Bacteria Trace /hpf (NONE) 11/10/22 18:40 Nasal Influ A H1 2009 PCR Not detected (NOT DETECT) 11/10/22 16:43 Adenovirus (PCR) Not detected (NOT DETECT) 11/10/22 16:43 C. pneumoniae DNA (PCR) Not detected (NOT DETECT) 11/10/22 16:43 Coronavirus 229E (PCR) Not detected (NOT DETECT) 11/10/22 16:43 Human Metapneumovir PCR Not detected (NOT DETECT) 11/10/22 16:43 Influenza A (H1) PCR Not detected (NOT DETECT) 11/10/22 16:43 Influenza A (H3) PCR Not detected (NOT DETECT) 11/10/22 16:43 Influenza Type A (PCR) Not detected (NOT DETECT) 11/10/22 16:43 Influenza Type B (PCR) Not detected (NOT DETECT) 11/10/22 16:43 M. pneumoniae (PCR) Not detected (NOT DETECT) 11/10/22 16:43 Parainfluenza 1 (PCR) Not detected (NOT DETECT) 11/10/22 16:43 Parainfluenza 2 (PCR) Not detected (NOT DETECT) 11/10/22 16:43 Parainfluenza 3 (PCR) Not detected (NOT DETECT) 11/10/22 16:43 Parainfluenza 4 (PCR) Not detected (NOT DETECT) 11/10/22 16:43 RSV Type A (PCR) Not detected (NOT DETECT) 11/10/22 16:43 RSV Type B (PCR) Not detected (NOT DETECT) 11/10/22 16:43 Entero/Rhino (PCR) Not detected (NOT DETECT) 11/10/22 16:43 SARS-CoV-2 (PCR) Not detected (NOT DETECT) 11/10/22 16:43 EKG Data EKG 1: I personally reviewed and interpreted this EKG as follows: EKG interpretation date: 11/10/22 EKG interpretation time: 16:30 Prior EKG tracings: not available for review Interpretation: EKG showed A-fib with RVR with a ventricular rate 127 bpm QRS duration 120 QTc 402 moderate intraventricular conduction delay, nonspecific ST and T wave abnormalities Discharge Plan Discharge Patient Disposition: Admitted As Inpatient Clinical Impression: Atrial fibrillation with rapid ventricular response, Fever, unknown origin Condition: Fair Coding Level of Care 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[employer] Documented by User: Mahesh Carreon DO 11/10/22 21:18 HPI - Weakness General: Chief complaint: Weakness Stated complaint: WEAKNESS; FEVER Time Seen by Provider: 11/10/22 16:21 PFSH ED PFSH: Medical History Anticoagulation adequate with anticoagulant therapy Xarelto Atrial fibrillation BPH loc w urin obs/LUTS CAD (coronary artery disease) Diabetes Dyslipidemia Elevated PSA Essential hypertension Ischemic cardiomyopathy Morbid obesity Obesity Peripheral arterial disease Sleep apnea Urinary retention Surgical History H/O knee surgery History of carpal tunnel surgery of right wrist S/P appendectomy S/P CABG (coronary artery bypass graft) S/P cataract surgery S/P decompression of ulnar nerve at elbow S/P hernia repair Family History Mother CAD (coronary artery disease) Stroke Father CAD (coronary artery disease) Family/Other Diabetes Hypertension Social History Smoking and tobacco status: never smoked Alcohol intake: current Alcohol intake frequency: 0-2 Drinks per Day Alcohol type: wine Substance/Drug Use: never Adopted: No Caregiver/support person: No Marital status: / Current occupational status: retired Current gender identity: Male Course Vital Signs: Vital signs: Vital Signs Temperature 98.5 F 11/10/22 19:20 Pulse Rate 105 H 11/10/22 19:01 Respiratory Rate 26 H 11/10/22 19:01 Blood Pressure 120/66 11/10/22 19:01 Pulse Oximetry 93 11/10/22 19:01 Oxygen Delivery Me thod Room Air 11/10/22 19:01 MDM - Weakness Medical Decision Making 77-year-old gentleman checked out to me at shift change by the previous physician. He presents with fever, essentially of an unknown origin. Temperature was 102. Now 98 5 after Tylenol and Toradol. His creatinine is 2. Hemoglobin is 10. White blood cell count is 16 with 89% neutrophils. Slight decrease in sodium at 128. Chest x-ray shows no acute process. Respiratory panel reveals no detectable respiratory virus. Urinalysis reveals trace leukocyte Estrace with hematuria, likely from self cathing and anticoagulation. His liver enzymes are nonelevated. His lactic acid is normal. His procalcitonin is normal. Sed rate, CRP are pending. On examination, his knee shows minimal swelling, no redness, no overt heat, and no increased pain recently by history. It is unlikely a source of infection at this point. The patient has no back pain, no headache. Blood cultures are pending. He is given IV Zosyn here. He was given a liter of fluid with improvement in his heart rate as well as IV diltiazem. He has a history of heart failure, and his BNP is already elevated, so we did not wish to fluid overload him if possible. Lab Data 11/10/22 16:43 11/10/22 17:16 Radiology Impressions Chest X-Ray 11/10/22 16:28 IMPRESSION: 1. No acute cardiopulmonary process. 2. Incidental/nonacute findings are listed in the report. Knee X-Ray 11/10/22 20:19 IMPRESSION: 1. No acute fracture of the left knee. Followup imaging recommended in 7-14 days if clinical concern for fracture persists. 2. Patient has had a previous left knee arthroplasty. No evidence for loosening of the surgical hardware. 3. Moderate left knee joint effusion. 4. Moderate soft tissue swelling anterior and medial to the left knee. 5. Incidental/nonacute findings are listed in the report. Laboratory Results WBC 16.4 10^3/uL (4.0-10.0) H 11/10/22 16:43 RBC 3.23 10^6/uL (4.1-5.3) L 11/10/22 16:43 Hgb 10.2 g/dL (11.7-16.6) L 11/10/22 16:43 Hct 30.9 % (42.0-52.0) L 11/10/22 16:43 MCV 95.7 fl (80-94) H 11/10/22 16:43 MCH 31.6 pg (28.0-34.0) 11/10/22 16:43 MCHC 33.0 g/dL (30.0-36.0) 11/10/22 16:43 RDW 14.0 % (12.1-15.1) 11/10/22 16:43 Plt Count 248 10^3/cmm (130-400) 11/10/22 16:43 MPV 10.1 fL (7.4-10.4) 11/10/22 16:43 Neut % (Auto) 89.2 % 11/10/22 16:43 Lymph % (Auto) 2.5 % 11/10/22 16:43 Bradley % (Auto) 7.1 % 11/10/22 16:43 Eos % (Auto) 0.1 % 11/10/22 16:43 Baso % (Auto) 0.2 % 11/10/22 16:43 Neut # (Auto) 14.62 10^3/uL (1.8-7.7) H 11/10/22 16:43 Lymph # (Auto) 0.4 10^3/uL (0.8-4.8) L 11/10/22 16:43 Bradley # (Auto) 1.2 10^3/uL (0.2-0.9) H 11/10/22 16:43 Eos # (Auto) 0.0 10^3/uL (0.0-0.8) 11/10/22 16:43 Baso # (Auto) 0.0 10^3/uL (0.0-0.1) 11/10/22 16:43 Nucleated RBC % (auto) 0 % 11/10/22 16:43 Nucleated RBCs # 0.0 /100WBC 11/10/22 16:43 ESR 22 mm/hr (0-10) H 11/10/22 16:43 PT 18.30 SECONDS (12.1-14.9) H 11/10/22 16:43 INR 1.47 (0.8-1.2) H 11/10/22 16:43 Sodium 128 mmol/L (136-145) L 11/10/22 17:16 Potassium 4.3 mmol/L (3.5-5.1) 11/10/22 17:16 Chloride 90 mmol/L (98-107) L 11/10/22 17:16 Carbon Dioxide 23 mmol/L (22-29) 11/10/22 17:16 Anion Gap 19.3 (5-19) H 11/10/22 17:16 BUN 29 mg/dL (8-23) H 11/10/22 17:16 Creatinine 2.0 mg/dL (0.7-1.2) H 11/10/22 17:16 GFR Calculation Not Reportable 11/10/22 17:16 Glucose 219 mg/dL (65-115) H 11/10/22 17:16 Calculated Osmolality 279 mOsm/kg (285-295) L 11/10/22 17:16 Lactic Acid 2.2 mmol/L (0.5-2.2) 11/10/22 17:16 Lactic Acid (Sepsis) 1.0 mmol/L (0.5-2.2) 11/10/22 20:05 Calcium 9.1 mg/dL (8.5-10.5) 11/10/22 17:16 Total Bilirubin 0.9 mg/dL (0.15-1.2) 11/10/22 17:16 AST 12 U/L (0-40) 11/10/22 17:16 ALT 8 U/L (0-41) 11/10/22 17:16 Alkaline Phosphatase 94 U/L (40-130) 11/10/22 17:16 NT-Pro-B Natriuret Pep 4004 pg/mL (0-450) H 11/10/22 17:16 Total Protein 6.4 g/dL (6.6-8.7) L 11/10/22 17:16 Albumin 3.6 g/dL (3.5-5.2) 11/10/22 17:16 Globulin 2.8 g/dL (1.3-4.6) 11/10/22 17:16 Procalcitonin 0.47 ng/mL (0-0.5) 11/10/22 17:16 Urine Color Dark yellow (Yellow) 11/10/22 18:40 Urine Appearance Clear (CLEAR) 11/10/22 18:40 Urine pH 5 (5-7) 11/10/22 18:40 Ur Specific Grabill 1.010 (1.005-1.030) 11/10/22 18:40 Urine Protein 1+ (Negative) H 11/10/22 18:40 Urine Glucose (UA) Norm (Normal) 11/10/22 18:40 Urine Ketones Negative (Negative) 11/10/22 18:40 Urine Blood 3+ (Negative) H 11/10/22 18:40 Urine Nitrate Negative (Negative) 11/10/22 18:40 Urine Bilirubin Neg (Negative) 11/10/22 18:40 Urine Urobilinogen Norm mg/dL (Negative) 11/10/22 18:40 Ur Leukocyte Esterase Trace (Negative) H 11/10/22 18:40 Urine RBC 80-100 /hpf (0-2) H 11/10/22 18:40 Urine WBC 15-25 /hpf (0-5) H 11/10/22 18:40 Ur Squamous Epith Cells 0-4 /hpf (0-5) H 11/10/22 18:40 Amorphous Sediment Not Reportable 11/10/22 18:40 Urine Bacteria Trace /hpf (NONE) 11/10/22 18:40 Nasal Influ A H1 2009 PCR Not detected (NOT DETECT) 11/10/22 16:43 Adenovirus (PCR) Not detected (NOT DETECT) 11/10/22 16:43 C. pneumoniae DNA (PCR) Not detected (NOT DETECT) 11/10/22 16:43 Coronavirus 229E (PCR) Not detected (NOT DETECT) 11/10/22 16:43 Human Metapneumovir PCR Not detected (NOT DETECT) 11/10/22 16:43 Influenza A (H1) PCR Not detected (NOT DETECT) 11/10/22 16:43 Influenza A (H3) PCR Not detected (NOT DETECT) 11/10/22 16:43 Influenza Type A (PCR) Not detected (NOT DETECT) 11/10/22 16:43 Influenza Type B (PCR) Not detected (NOT DETECT) 11/10/22 16:43 M. pneumoniae (PCR) Not detected (NOT DETECT) 11/10/22 16:43 Parainfluenza 1 (PCR) Not detected (NOT DETECT) 11/10/22 16:43 Parainfluenza 2 (PCR) Not detected (NOT DETECT) 11/10/22 16:43 Parainfluenza 3 (PCR) Not detected (NOT DETECT) 11/10/22 16:43 Parainfluenza 4 (PCR) Not detected (NOT DETECT) 11/10/22 16:43 RSV Type A (PCR) Not detected (NOT DETECT) 11/10/22 16:43 RSV Type B (PCR) Not detected (NOT DETECT) 11/10/22 16:43 Entero/Rhino (PCR) Not detected (NOT DETECT) 11/10/22 16:43 SARS-CoV-2 (PCR) Not detected (NOT DETECT) 11/10/22 16:43 Discharge Plan Discharge Patient Disposition: Admitted As Inpatient Clinical Impression: Atrial fibrillation with rapid ventricular response, Fever, unknown origin Condition: Fair Coding Level of Care 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
--- NOTE | 2022-11-10 16:32 | ECG_ITS ---
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 Measurements Intervals [place] Rate: 127 P: 0 CT: 0 QRS: 9 QRSD: 120 T: 72 QT: 327 QTc: 475 Interpretive Statements ATRIAL FIBRILLATION WITH RAPID VENTRICULAR RESPONSE MODERATE INTRAVENTRICULAR CONDUCTION DELAY [105+ ms QRS DURATION, 80+ ms Q/S IN V1/V2, NO Q AND 60+ ms R IN I/aVL/V5/V6] NONSPECIFIC ST & T-WAVE ABNORMALITY Compared to ECG 12/21/2018 07:25:45 T-wave abnormality now present Sinus rhythm no longer present Electronically Signed On 11-11-2022 17:06:13 CDT by Clint Van M.D. [email or web address]
[2022-11-10 16:53] LABS: Basophils % 0.2 %; Eosinophils % 0.1 %; Hematocrit 30.9 % (42.0-52.0); Hemoglobin 10.2 g/dL (11.7-16.6); Lymphocytes # 0.4 10^3/uL (0.8-4.8); Lymphocytes % 2.5 %; Mean Corpuscular Hemoglobin 31.6 pg (28.0-34.0); Mean Corpuscular Volume 95.7 fl (80-94); Mean Platelet Volume 10.1 fL (7.4-10.4); Monocytes # 1.2 10^3/uL (0.2-0.9); Monocytes % 7.1 %; Neutrophils # 14.62 10^3/uL (1.8-7.7); Neutrophils % 89.2 %; Nucleated Red Blood Cells % 0 %; Platelet Count 248 10^3/cmm (130-400); Red Blood Count 3.23 10^6/uL (4.1-5.3); White Blood Count 16.4 10^3/uL (4.0-10.0)
[2022-11-10] MEDS: acetaminophen 1,000 MG/100 ML PIGGYBACK 400 MG IV (17:04)
[2022-11-10] MEDS: labetalol 5 mg/mL SDV 20mL 10 MG IVP (17:05)
[2022-11-10 17:17] VITALS: BP 134/85; PULSE 128; RESP 20; O2SAT 96
[2022-11-10 17:17] LABS: INR 1.47 (0.8-1.2)
[2022-11-10 17:39] LABS: Lactic Sepsis W/Reflex 2.2 mmol/L (0.5-2.2)
[2022-11-10 17:48] LABS: Reflex Lactate Order REFLEX LACTIC ORDERD
[2022-11-10 17:49] LABS: NT Pro B Type Natriuretic Pept 4004 pg/mL (0-450); Procalcitonin 0.47 ng/mL (0-0.5)
[2022-11-10 18:00] LABS: Alanine Aminotransferase 8 U/L (0-41); Albumin Level 3.6 g/dL (3.5-5.2); Alkaline Phosphatase 94 U/L (40-130); Blood Urea Nitrogen 29 mg/dL (8-23); Calcium 9.1 mg/dL (8.5-10.5); Carbon Dioxide 23 mmol/L (22-29); Chloride 90 mmol/L (98-107); Globulin 2.8 g/dL (1.3-4.6); Glucose 219 mg/dL (65-115); Osmolality Calculated 279 mOsm/kg (285-295); Sodium 128 mmol/L (136-145); Total Bilirubin 0.9 mg/dL (0.15-1.2); Total Protein 6.4 g/dL (6.6-8.7)
[2022-11-10 18:01] LABS: Anion Gap 19.3 (5-19); Aspartate Amino Transferase 12 U/L (0-40); Potassium 4.3 mmol/L (3.5-5.1)
[2022-11-10 18:06] VITALS: BP 112/72; PULSE 115; RESP 25; O2SAT 92
[2022-11-10 18:34] LABS: Adenovirus Not Detected (NOT DETECT); Chlamydia Pneumoniae Not Detected (NOT DETECT); Coronavirus 229E,HKU1,NL63,OC4 Not Detected (NOT DETECT); Human Metapneumovirus Not Detected (NOT DETECT); Human Rhinovirus/Enterovirus Not Detected (NOT DETECT); Influenza A Not Detected (NOT DETECT); Influenza A H1 Not Detected (NOT DETECT); Influenza A H1-2009 Not Detected (NOT DETECT); Influenza A H3 Not Detected (NOT DETECT); Influenza B Not Detected (NOT DETECT); Mycoplasma Pneumoniae Not Detected (NOT DETECT); Parainfluenza Virus Type 1 Not Detected (NOT DETECT); Parainfluenza Virus Type 2 Not Detected (NOT DETECT); Parainfluenza Virus Type 3 Not Detected (NOT DETECT); Parainfluenza Virus Type 4 Not Detected (NOT DETECT); Respiratory Syncytial Virus A Not Detected (NOT DETECT); Respiratory Syncytial Virus B Not Detected (NOT DETECT); SARS-COV-2 Not Detected (NOT DETECT)
[2022-11-10] MEDS: sodium chloride 0.9% 1,000 ML 999 ML IV (18:52)
[2022-11-10] MEDS: dilTIAZem 5 mg/mL SDV 5 mL 10 MG IVP (18:53)
[2022-11-10] MEDS: ketorolac 30 mg/mL INJ IVP (18:53)
[2022-11-10 18:55] VITALS: BP 108/69; PULSE 126; RESP 25; O2SAT 92
[2022-11-10] MEDS: piperacillin-tazobactam 4.5 GM in sodium chloride 0.9% (plus) 50 ML IV (18:58)
[2022-11-10 19:01] VITALS: BP 120/66; PULSE 105; RESP 26; O2SAT 93
--- NOTE | 2022-11-10 19:02 | PC.NURSE ---
PATIENT CARNEY PLACED. PATIENT PLACED IN GOWN. KNEE REPLACEMENT SUTURES OBSERVED. PATIENT SUTURES REMAIN WELL APPROXIMATED. NO SIGNS OF INFECTION.
[2022-11-10 19:10] LABS: Add Urine Microscopic? YES; Bilirubin Urine Neg (Negative); Blood Urine 3+ (Negative); Glucose Urine UA Norm (Normal); Ketones Urine Negative (Negative); Leukocyte Esterase Urine Trace (Negative); Nitrate Urine Negative (Negative); Protein Urine 1+ (Negative); Urine Appearance Clear (CLEAR); Urine Color Dark Yellow (Yellow); Urobilinogen Urine Norm (Negative); pH Urine 5 (5-7)
[2022-11-10 19:11] LABS: RBC Urine 80-100 /hpf (0-2); WBC Urine 15-25 /hpf (0-5)
[2022-11-10 19:12] LABS: Squamous Epithelial Cell Urine 0-4 /hpf (0-5)
[2022-11-10 19:13] LABS: Add Urine Culture? Yes; Bacteria Urine TRACE /hpf
[2022-11-10 19:20] VITALS: TEMP 36.9
--- NOTE | 2022-11-10 20:19 | XRR_ITS ---
PROCEDURE INFORMATION: Exam: XR Left Knee Exam date and time: 11/10/2022 8:22 PM Age: 77 years old Clinical indication: Prior surgery; Surgery date: <1 month; Surgery type: Left tka on 10/24/2022; Patient HX: Fever. Tka on 10/24/2022; Additional info: Fever S/P arthroplasty TECHNIQUE: Imaging protocol: Radiologic exam of the left knee. Views: 3 views. COMPARISON: No relevant prior studies available. FINDINGS: Bones/joints: No acute fracture. No dislocation. Normal bone mineralization. Patient has had a previous left knee arthroplasty. No evidence for loosening of the surgical hardware. Moderate left knee joint effusion. Joint spaces are maintained. Soft tissues: Moderate soft tissue swelling anterior and medial to the left knee. No radiopaque foreign body. Surgical clips in the soft tissues medial to the left knee. XR/XR knee LT 3V* [id number] IMPRESSION: 1. No acute fracture of the left knee. Followup imaging recommended in 7-14 days if clinical concern for fracture persists. 2. Patient has had a previous left knee arthroplasty. No evidence for loosening of the surgical hardware. 3. Moderate left knee joint effusion. 4. Moderate soft tissue swelling anterior and medial to the left knee. 5. Incidental/nonacute findings are listed in the report.
--- NOTE | 2022-11-10 20:27 | CTR_ITS ---
PROCEDURE INFORMATION: Exam: CT Chest Without Contrast; Diagnostic Exam date and time: 11/10/2022 8:57 PM Age: 77 years old Clinical indication: Abnormal findings; Abnormal lab test; Other: N/a; Prior surgery; Surgery type: Cabg. Hernia repair. Appy; Patient HX: Fever with elevated wbc and mary TECHNIQUE: Imaging protocol: Diagnostic computed tomography of the chest without contrast. Sagittal and coronal reformatted images were created and reviewed. Radiation optimization: All CT scans at this facility use at least one of these dose optimization techniques: automated exposure control; mA and/or kV adjustment per patient size (includes targeted exams where dose is matched to clinical indication); or iterative reconstruction. REPORTING DATA: Count of CT and Cardiac NM exams in prior 12 months: This patient has received [address] and 0 known cardiac nuclear medicine studies in the 12 months prior to the current study. COMPARISON: CR (CHEST, ) 11/10/2022 4:55 PM RADIATION DOSE METRICS: Total DLP (mGy-cm): 1700.4 FINDINGS: Trachea: Tracheobronchial structures are patent. Lungs: Lungs are clear bilaterally. Pleural spaces: No pneumothorax. No pleural effusion. Heart: Mild enlargement of the heart. Coronary arteries: Extensive atherosclerotic calcification in the coronary arteries. Esophagus: The esophagus is unremarkable. Mediastinal space: No mediastinal hematoma. No pneumomediastinum. Lymph nodes: Calcified lymph nodes in the mediastinum and right billy. No lymphadenopathy. Vasculature: Mild atherosclerotic changes in the visualized arteries. Bones/joints: No acute fracture. Soft tissues: No acute abnormality in the extra-abdominal soft tissues. PROCEDURE INFORMATION: Exam: CT Abdomen And Pelvis Without Contrast Exam date and time: 11/10/2022 8:57 PM Age: 77 years old Clinical indication: Abnormal findings; Abnormal lab test; Other: N/a; Prior surgery; Surgery type: Cabg. Hernia repair. Appy; Patient HX: Fever with elevated wbc and mary TECHNIQUE: Imaging protocol: Computed tomography of the abdomen and pelvis without contrast. Sagittal and coronal reformatted images were created and reviewed. Radiation optimization: All CT scans at this facility use at least one of these dose optimization techniques: automated exposure control; mA and/or kV adjustment per patient size (includes targeted exams where dose is matched to clinical indication); or iterative reconstruction. REPORTING DATA: Count of CT and Cardiac NM exams in prior 12 months: This patient has received [address] and 0 known cardiac nuclear medicine studies in the 12 months prior to the current study. COMPARISON: CR XR hip LT 2-3V wo/w pel* [id number] 09/30/2022 2:39 PM RADIATION DOSE METRICS: Total DLP (mGy-cm): 1700.4 FINDINGS: Limitations: Evaluation of solid organs and vasculature is limited without intravenous contrast. Liver: The liver is unremarkable. Gallbladder and bile ducts: The gallbladder is contracted. This may be due to a postprandial state. No pericholecystic fluid. No biliary ductal dilatation. Pancreas: The pancreas is unremarkable. No pancreatic ductal dilatation. Spleen: Multiple calcified granulomas in the spleen. Adrenal glands: The right and left adrenal glands are unremarkable. Kidneys and ureters: Nonspecific edema around both kidneys. 3.3 cm cyst in the left kidney. The right and left ureters are unremarkable. Stomach and bowel: No acute abnormality in the small bowel. No acute abnormality in the colon. The stomach is collapsed, which can limit evaluation. No focal abnormality in the stomach otherwise. Appendix: The patient has had a previous appendectomy. Intraperitoneal space: No free intraperitoneal air. No ascites. No loculated fluid collections to suggest an abscess. Vasculature: Moderate atherosclerotic changes in the visualized arteries. No evidence for aortic aneurysm. Lymph nodes: No lymphadenopathy. Urinary bladder: The bladder is decompressed by a Mims catheter.The bladder is incompletely filled, which can limit evaluation. Despite this, there is diffuse, moderate wall thickening of the bladder and inflammation around the bladder. Reproductive: The prostate gland is markedly enlarged. There is inflammation around the prostate gland suspicious for prostatitis. Bones/joints: Multilevel degenerative changes of varying severity in the visualized spine. Soft tissues: No acute abnormality in the extra-abdominal soft tissues. CT/[place] [id number] IMPRESSION: 1. No acute cardiopulmonary process. 2. Incidental/nonacute findings are listed in the report. IMPRESSION: 1. The bladder is decompressed by a Mims catheter.The bladder is incompletely filled, which can limit evaluation. Despite this, there is diffuse, moderate wall thickening of the bladder and inflammation around the bladder. Findings are suspicious for cystitis. Recommend correlation with laboratory findings. 2. The prostate gland is markedly enlarged. There is inflammation around the prostate gland suspicious for prostatitis. 3. Incidental/nonacute findings are listed in the report. COMMENTS: Consistent with the [employer]'s Incidental Findings Committee white paper (J Am Jeanna Radiol 2018): Any incidental renal lesion less than 1 cm or classified as too small to characterize, or any incidental cystic renal lesion characterized as simple-appearing, is likely benign. No follow-up imaging is recommended for these lesions per consensus recommendations based on imaging criteria.
[2022-11-10 20:43] LABS: Erythrocyte Sedimentation Rate 22 mm/hr (0-10)
--- NOTE | 2022-11-10 20:48 | P.HP_ITS ---
Providers/Chief Complaint Primary Care Provider: Hernan Rees DO Chief Complaint: WEAKNESS; FEVER History of Present Illness Nicolas Romero is a 77 year old male atrial fibrillation, status post cardioversion, currently on Xarelto, history of CAD status post CABG, history of dyslipidemia, diabetes, obesity, hypertension, sleep apnea, ischemic cardiomyopathy, peripheral arterial disease, r recently had a left knee replacement roughly 4 weeks ago, by Dr. Ruiz in [place] who presents [facility] due to fevers, fatigue, malaise, generalized weakness. Patient tells me that he has been doing well since his left knee replacement, he has been dealing with some swelling, I saw that he saw Fariba Hoffmanter on November 05, she had noticed that he was dealing with left knee swelling and she had ordered an ultrasound which showed a complex mass left popliteal fossa, he tells me that a bit swollen today, was not really bothering him, he has been ambulating more since his knee surgery, he was on half dose Xarelto after his knee replacement, for about 2 weeks, now he is back to full dose. 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 He tells me today when he woke up he did not feel well, he felt feverish, fatigue, malaise, as the day progressed he felt much more weak, more like generalized weakness, feeling unwell, he did feel more short of breath than usual, no chest pain, no headache, blurry vision, neck pain, neck stiffness, no cough, no abdominal pain, no flank pain, as his symptoms started to progress he was actually to come to the emergency room, when he fell, no significant trauma no significant head trauma. No strokelike symptoms, no facial room, slurring words, no focal weakness. He tells me that during his hospitalization for his knee replacement he had urinary retention, but he was eventually discharged with a Mims catheter but he retained urine and eventually had to have a Mims catheter placed in the emergency room which eventually was removed by his primary care provider but then he retain urine again so Mims catheter to be replaced, and he saw urology who took out the Mims catheter and placed him on self-catheterization has been self catheterizing him saw for the last 2 days. In the emergency room he was febrile up to 102, tachycardic, up to 137 A-fib with RVR room air, normotensive, currently he only complains of just feeling feverish, no back pain, no headache, no blurry vision Review of Systems Const: Reports: fever(s), fatigue and malaise Eyes: Denies: change in vision Card: Denies: chest pain Resp: Reports: dyspnea and non-productive cough GI: Denies: abdominal pain Musc: Denies: neck pain Neuro: Denies: headache(s) Medications/Allergies Home Medications Medication Instructions Recorded Confirmed Last Taken Type atorvastatin 40 mg tablet 40 mg PO DAILY 09/07/19 11/05/22 05/22/22 History potassium chloride 10 mEq 10 meq PO DAILY 09/07/19 11/05/22 05/22/22 History capsule,extended release sitagliptin phosphate 100 mg 100 mg PO DAILY 09/07/19 11/05/22 05/22/22 History tablet (Januvia) lisinopril 20 mg tablet 20 mg PO BID 11/10/19 11/05/22 05/22/22 History metoprolol succinate 50 mg 25 mg PO BID 11/23/21 11/05/22 05/23/22 History tablet,extended release 24 hr sotalol 80 mg tablet 80 mg PO BID #180 tabs 12/24/21 11/05/22 05/23/22 Rx amlodipine 10 mg tablet 10 mg PO DAILY #90 tabs 12/25/21 11/05/22 05/23/22 Rx acetaminophen 325 mg tablet 650 mg PO Q6H PRN 11/05/22 11/05/22 Unknown History cholecalciferol (vitamin D3) 50 1,000 unit PO QAM 11/05/22 11/05/22 Unknown History mcg (2,000 unit) capsule furosemide 40 mg tablet 40 mg PO BID 11/05/22 11/05/22 Unknown History metformin 1,000 mg tablet 1,000 mg PO DAILY 11/05/22 11/05/22 Unknown History nitrofurantoin macrocrystal 100 mg 100 mg PO BID 11/05/22 11/05/22 Unknown His tory capsule psyllium husk 0.4 gram capsule 0.8 g PO DAILY 11/05/22 11/05/22 Unknown History (Metamucil) rivaroxaban 20 mg tablet (Xarelto) 10 mg PO DAILY 11/05/22 11/05/22 Unknown His tory tamsulosin 0.4 mg capsule (Flomax) 0.8 mg PO DAILY 11/05/22 11/05/22 Unknown History Allergies Allergy/AdvReac Type Severity Reaction Status Date / Time No Known Allergies Allergy Verified 10/09/22 13:56 PFSH Acute 2 PFSH: Medical History Anticoagulation adequate with anticoagulant therapy Xarelto Atrial fibrillation BPH loc w urin obs/LUTS CAD (coronary artery disease) Diabetes Dyslipidemia Elevated PSA Essential hypertension Ischemic cardiomyopathy Morbid obesity Obesity Peripheral arterial disease Sleep apnea Urinary retention Surgical History H/O knee surgery History of carpal tunnel surgery of right wrist S/P appendectomy S/P CABG (coronary artery bypass graft) S/P cataract surgery S/P decompression of ulnar nerve at elbow S/P hernia repair Family History Mother CAD (coronary artery disease) Stroke Father CAD (coronary artery disease) Family/Other Diabetes Hypertension Social History Smoking and tobacco status: never smoked Alcohol intake: current Alcohol intake frequency: 0-2 Drinks per Day Alcohol type: wine Substance/Drug Use: never Adopted: No Caregiver/support person: No Marital status: / Current occupational status: retired Current gender identity: Male Vitals/I&O/Wt Last Vital Signs Temp 98.5 F 11/10/22 19:20 Pulse 105 H 11/10/22 19:01 Resp 26 H 11/10/22 19:01 BP 120/66 11/10/22 19:01 Pulse Ox 93 11/10/22 19:01 O2 Del Method Room Air 11/10/22 19:01 11/10/22 11/10/22 11/10/22 06:59 14:59 22:59 Intake Total 1150 / 1150 Balance 1150 / 1150 Weight last 48 hrs Weight 118.841 kg Physical Exam Const: COMMON NORMALS: no acute distress and patient oriented x3 HENMT: COMMON NORMALS: normocephalic HEAD & SCALP: normocephalic Eye: COMMON NORMALS: Equal, round and reactive pupils present and EOMs intact bilaterally Neck/C-Spine: COMMON NORMALS: full ROM and no lymphadenopathy Lymph: LYMPHATIC: no lymphadenopathy noted Resp: COMMON NORMALS: normal respiratory effort, No retractions, No use of a ccessory muscles and clear to auscultation bilaterally AUSCULTATION: clear to auscultation bilaterally Cardio: COMMON NORMALS: regular rate, regular rhythm, S1 normal heart sound present and S2 normal heart sound present RATE: regular rate RHYTHM: regular rhythm HEART SOUNDS: S1 normal heart sound present and S2 normal heart sound present GI: COMMON NORMALS: Normal to inspection, nondistended, normoactive bowel sounds present, Soft to palpation and non-tender Back/Pelvis: OTHER: On examination, left knee up to the left thigh, is swollen, slightly erythematous, warm, hot to touch, but he denies any pain, has good DP PT pulses Extremity: COMMON NORMALS: no pedal edema Neuro: COMMON NORMALS: patient oriented x3, CN's II-XII intact bilaterally, moves all extremities and no focal motor deficits Psych: COMMON NORMALS: mental status grossly normal Urinary Catheter Management: Coude: Cath Placed During This Visit: yes Urinary Catheter Date of Insertion: 11/10/22 Urinary Catheter Time of Insertion: 18:42 Data 11/10/22 16:43 11/10/22 17:16 A&P Assessment and plan (1) Fever: (2) Atrial fibrillation with rapid ventricular response: (3) S/P CABG (coronary artery bypass graft): (4) Diabetes: (5) Peripheral arterial disease: (6) Ischemic cardiomyopathy: (7) Essential hypertension: (8) Obesity: (9) CAD (coronary artery disease): (10) Anticoagulation adequate with anticoagulant therapy: (11) BPH loc w urin obs/LUTS: Plan Fever, febrile up to 102 in the emergency room, WBC 16.4, neutrophilic -Chest x-ray no focal pneumonia -He has been self cathing himself, urine does show RBCs, does have a leukocyte esterase, but not really convincing for a UTI -Denies any headache, no blurry vision, no neck pain, no neck stiffness -No new rashes -No calf pain, no calf swelling however I will do a venous ultrasound as he has been taking half dose Xarelto -We will do a CT of his chest for possible pneumonia -CT abdomen pelvis as his urine does show RBCs 80-100, but it is likely from his self cath -Respiratory viral panel is negative -My concern is his left knee, it is swollen, erythematous, the x-ray I ordered in the emergency room did show moderate left knee joint effusion, moderate soft tissue swelling anterior medial to the knee, will order a CT of the knee -If the CT of the knee is abnormal, I would recommend transfer to tertiary level center or to where Dr. Ruiz works out of for evaluation for possible septic arthritis would recommend arthrocentesis, and continue broad-spectrum antibiotic therapy, vancomycin, Zosyn -We will see what the CT chest abdomen pelvis show -Although ESR is unrevealing at 22 -Pro-Kavon 0.47 -CRP pending -I would continue vancomycin, Zosyn follow blood cultures A-fib with RVR, has received diltiazem push in the emergency room -We will watch heart rates in the emergency room, consider Cardizem drip depending on what the heart rates to -Would continue Xarelto Mims catheter in place Type 2 diabetes mellitus, low-dose sliding scale Hyponatremia, component of pseudohyponatremia, monitor CKD, creatinine 2.0 monitor Full code Xarelto for DVT prop axis Attestations Medical Necessity Statement*: Patient requires hospitalization, for fevers, atrial fibrillation rvr, inpatient greater than 2 midnights Diagnoses Fever R50.9 Atrial fibrillation with rapid ventricular response I48.91 S/P CABG (coronary artery bypass graft) Z95.1 Diabetes E11.9 Peripheral arterial disease I73.9 Ischemic cardiomyopathy I25.5 Essential hypertension I10 Obesity E66.9 CAD (coronary artery disease) I25.10 Anticoagulation adequate with anticoagulant therapy Z79.01 BPH loc w urin obs/LUTS N40.1
--- NOTE | 2022-11-10 20:51 | CTR_ITS ---
PROCEDURE INFORMATION: Exam: CT Left Lower Extremity Without Contrast, Knee Exam date and time: 11/10/2022 9:02 PM Age: 77 years old Clinical indication: Prior surgery; Surgery date: <1 month; Patient HX: Fever. Left tka on 10/24/2022; Additional info: Left knee replacement, fever, swelling TECHNIQUE: Imaging protocol: CT of the left lower extremity without contrast was performed. Exam focused on the knee. Radiation optimization: All CT scans at this facility use at least one of these dose optimization techniques: automated exposure control; mA and/or kV adjustment per patient size (includes targeted exams where dose is matched to clinical indication); or iterative reconstruction. REPORTING DATA: Count of CT and Cardiac NM exams in prior 12 months: This patient has received [address] and 0 known cardiac nuclear medicine studies in the 12 months prior to the current study. COMPARISON: MR knee LT wo con* [id number] 02/15/2020 12:54 PM RADIATION DOSE METRICS: Total DLP (mGy-cm): 386.78 FINDINGS: Bones/joints: Large suprapatellar joint effusion. Patient has had a previous left knee arthroplasty. No evidence for loosening of the surgical hardware. No lytic or sclerotic bony lesions. Soft tissues: Diffuse syso-zl-hdbidiex subcutaneous edema. Large complex fluid collection in the popliteal fossa of measuring 5.2 x 4.4 x 3.2 cm. Findings suggest a hemorrhagic Devlin's cyst. Vasculature: Moderate atherosclerotic changes in the visualized arteries. CT/CT knee LT wo con* [id number] IMPRESSION: 1. No evidence for osteomyelitis. MRI without and with contrast may be obtained if there is continuing clinical concern for osteomyelitis. If the patient has any contradiction for MRI, 3 phase bone scan in conjunction with white blood cell scan may be obtained. Patient has had a previous left knee arthroplasty. No evidence for loosening of the surgical hardware. 2. Large suprapatellar joint effusion. 3. Diffuse ohtt-ik-twssmgev subcutaneous edema. 4. Large complex fluid collection in the popliteal fossa. Findings suggest a hemorrhagic Devlin's cyst.
[2022-11-10 21:23] LABS: D Dimer 5.83 ug/mIFEU (0-0.59)
[2022-11-10 21:46] LABS: C Reactive Protein 101.9 mg/L (0.0-4.9)
[2022-11-10 22:27] LABS: Troponin(5th) Baseline 65 ng/L (0-15)
[2022-11-11] VITALS (10 sets, daily range): BP systolic 100–128; BP diastolic 54–76; PULSE 78–117; RESP 18–28; TEMP 36.9–38.3; O2SAT 91–96
[2022-11-11 01:06] LABS: RBC Synovial Fluid 16 10^3/uL (0-0); Synovial Fluid Mononuclear # 0.158 10^3/uL; Synovial Fluid Polynuclear # 0.619 10^3/uL; WBC Synovial Fluid 777 /uL (0-150)
[2022-11-11 01:10] LABS: Cyto Order Verification Order Verified
[2022-11-11 01:11] LABS: Appearance Synovial Fluid HAZY (CLEAR); Color Synovial Fluid AMBER (PALE YELLOW)
[2022-11-11 01:42] LABS: PATH Referal YES
--- NOTE | 2022-11-11 02:15 | ECG_ITS ---
[facility] Date: 2022-11-11 Pat Name: Nicolas Romeor Department: Room: 104 Gender: Male Professional Services Consultant: : [id number] Requested By: Ilan Driscoll Order Number: [id number] Andreina MD: Clint Van M.D. Measurements Intervals Dickinson Rate: 119 P: 0 NM: 0 QRS: 31 QRSD: 120 T: 120 QT: 311 QTc: 438 Interpretive Statements ATRIAL FIBRILLATION WITH RAPID VENTRICULAR RESPONSE MODERATE INTRAVENTRICULAR CONDUCTION DELAY [110+ ms QRS DURATION] ABNORMAL QRS-T ANGLE [QRS-T AXIS DIFFERENCE > 60] Compared to ECG 11/10/2022 16:30:17 T-wave abnormality no longer present Electronically Signed On 11-11-2022 17:11:20 CDT by Clint Van M.D. [id number]
[2022-11-11] MEDS: acetaminophen 325 mg Tablet 650 MG PO ×2 (02:28→10:19)
[2022-11-11] MEDS: dilTIAZem 30 mg Tablet PO (02:28)
[2022-11-11] MEDS: pantoprazole 40 mg SDV IVP (02:28)
--- NOTE | 2022-11-11 02:34 | PC.PHAR ---
Pharmacokinetic dosing service Date: 11/11/22 Time: 233 Objective: Patient: Nicolas Romero Floor: 104-1 Age: 77 yo Serum creatinine: 2.0 mg/dL Height: 72.0 Inches Weight (kg): 118.841 Diagnosis: Relevant medical/social history: Cultures and sensitivities: Other labs: Assessment: IBW (kg): 77.60 Dosing wt(kg): 118.841 Estimated Creatinine clearance (ml/min): 35.0 CRCL method: Cockcroft and Gault using ibw(default). Drug selected: Vancomycin Loading dose (mg): 0 Vd (liters): 107.0 (factor used: 0.9 L/kg) Rafael (hr-1): 0.033 Half life (hrs): 21.00 Recommended dose: 1750 mg Interval: 24 hrs Infusion time (hrs): 1.5 Predicted peak (mcg/mL): 29.2 Predicted trough (mcg/mL): 13.90 Total body weight is being used for vancomycin dosing. Renal function is stable [ ] /unstable [ ] Recommendations: Give Vancomycin 1750 mg q 24 hrs with an expected Cpeak of 29.2 mcg/ml and an expected Ctrough of 13.90 mcg/ml Renal dosing of other antibiotics (review renal dosing of other medications and list guidelines here): Thank you for the consult, will continue to follow. Signature: Christine Candelaria [facility]
[2022-11-11 04:00] LABS: Basophils # 0.1 10^3/uL (0.0-0.1); Basophils % 0.3 %; Hematocrit 28.9 % (42.0-52.0); Hemoglobin 9.3 g/dL (11.7-16.6); Lymphocytes # 0.5 10^3/uL (0.8-4.8); Mean Corpuscular HGB Conc 32.2 g/dL (30.0-36.0); Mean Corpuscular Hemoglobin 31.1 pg (28.0-34.0); Mean Corpuscular Volume 96.7 fl (80-94); Mean Platelet Volume 9.7 fL (7.4-10.4); Monocytes # 0.8 10^3/uL (0.2-0.9); Monocytes % 4.9 %; Neutrophils # 14.68 10^3/uL (1.8-7.7); Neutrophils % 90.5 %; Nucleated Red Blood Cells % 0 %; Platelet Count 191 10^3/cmm (130-400); Red Blood Count 2.99 10^6/uL (4.1-5.3); White Blood Count 16.2 10^3/uL (4.0-10.0)
[2022-11-11] MEDS: vancomycin 1,750 MG/350 ML PIGGYBACK 175 MG IV (04:13)
[2022-11-11 04:19] LABS: Troponin 5 6HR 73.49 ng/L (0-15)
[2022-11-11 04:20] LABS: Troponin 5 6HR Delta 8.49 ng/L (0-12)
[2022-11-11 05:07] LABS: Thyroid Stimulating Hormone 1.36 uIU/mL (0.27-4.20)
[2022-11-11] MEDS: piperacillin-tazobactam 3.375 GM in sodium chloride 0.9% (plus) 50 ML IV ×3 (06:30→21:38)
--- NOTE | 2022-11-11 08:43 | PC.PHAR ---
pt states his life partner shannon [phone] takes care of his medications-called shannon no answer left voicemail
[2022-11-11 09:06] LABS: Alanine Aminotransferase 8 U/L (0-41); Albumin Level 3.3 g/dL (3.5-5.2); Alkaline Phosphatase 94 U/L (40-130); Anion Gap 17.8 (5-19); Aspartate Amino Transferase 12 U/L (0-40); Blood Urea Nitrogen 30 mg/dL (8-23); Calcium 8.9 mg/dL (8.5-10.5); Carbon Dioxide 25 mmol/L (22-29); Chloride 90 mmol/L (98-107); Glucose 161 mg/dL (65-115); Osmolality Calculated 276 mOsm/kg (285-295); Potassium 4.8 mmol/L (3.5-5.1); Sodium 128 mmol/L (136-145); Total Bilirubin 1.1 mg/dL (0.15-1.2); Total Protein 6.3 g/dL (6.6-8.7)
[2022-11-11] MEDS: rivaroxaban 10 mg Tablet PO (09:14)
[2022-11-11] MEDS: atorvastatin 40 mg Tablet PO (09:14)
[2022-11-11] MEDS: tamsulosin 0.4 mg Capsule 0.8 MG PO (09:14)
[2022-11-11] MEDS: sotalol 80 mg Tablet PO ×2 (09:14→17:48)
--- NOTE | 2022-11-11 09:56 | PC.PHAR ---
Addendum entered by Denisse Cano 11/11/22 10:27: spoke to emmanuel nurse in [facility] and told her about the pacerone and xarelto Original Note: pt states his shannon [phone] takes care of his medications-shannon states the pt hasnt used lantus for at least a year pt also states he hasnt used his insulin in a long time ext med history shows last filled 07/05/22 90d/s-shannon found a bottle of pacerone 200mg daily dated 12/10/2018 shannon states she doesnt think the pt is taking-shannon states the pt finished the xarelto 10mg daily filled 10/24/22 14d/s ext also shows 20mg daily filled 08/13/22 90d/s shannon states she is unsure if the pt was suppose to restart the 20mg daily-shannon states she didnt find a rx bottle for metformin 1000mg daily ext show last filled 04/20/23 90d/s-shannon states the pt is taking lipitor 40mg daily filled 10/16/22 90d/s states she also found a bottle of 80mg daily from 08/14/21-notes are made in the pharmacy comments
[2022-11-11 09:58] LABS: Glucose Point of Care 174 mg/dL (70-110)
[2022-11-11] MEDS: insulin lispro 100 unit/1 mL SUBCUT (10:19)
[2022-11-11 11:45] LABS: Glucose Point of Care 170 mg/dL (70-110)
--- NOTE | 2022-11-11 15:25 | P.PN_ITS ---
Subjective Subjective: Patient was seen and examined this morning, blood pressure has been slightly soft. Morning dose of metoprolol as well as Cardizem was kept on hold, he did receive the morning dose of sotalol. Patient has been continued on broad-spectrum antibiotic.Given the concerning CT finding of the left knee, orthopedic is on board. Patient has also been started on gentle IV hydration with normal saline. Medications: Medication Review Details: Generic Name Dose Route Start Last Admin Trade Name Freq PRN Reason Stop Dose Admin Acetaminophen 650 mg 11/11/22 02:05 11/11/22 10:19 Acetaminophen 32 5 Mg Tablet PO 650 mg Q6H PRN Administration Mild/Mod Pain Or Temp >/= 101 Atorvastatin Calci um 40 mg 11/11/22 09:00 11/11/22 09:14 Atorvastatin 40 Mg Tablet PO 40 mg DAILY SUHAS Administration Diltiazem HCl 30 mg 11/11/22 02:15 11/11/22 09:10 Diltiazem 30 Mg Tablet PO Not Given Q6H [facility] Vancomycin/PEG/NAD A/Lysine/Water 1,750 mg in 350 m ls @ 233.333 mls/h r 11/11/22 04:00 11/11/22 06:37 Vancocin IV Infused Q24H [facility] Infusion Piperacillin Sod/T azobactam 50 mls @ 12.5 mls /hr 11/11/22 05:00 11/11/22 14:50 Sod 3.375 gm/ So dium Chloride IV 12.5 mls/hr Q8H [facility] Administration Protocol Insulin Human Lisp ro 0 unit 11/11/22 08:00 11/11/22 14:56 Insulin Lispro 1 00 Unit/1 Ml SUBCUT Not Given TIDWM [facility]1983 Protocol Metoprolol Succina te 25 mg 11/11/22 09:00 11/11/22 09:10 Metoprolol Succi smith Er (24 Hr) 50 Mg Tablet PO Not Given BID SUHAS Pantoprazole Sodiu m 40 mg 11/11/22 02:15 11/11/22 02:28 Pantoprazole 40 Mg Sdv IVP 40 mg Q24H [facility] Administration Rivaroxaban 10 mg 11/11/22 09:00 11/11/22 09:14 Rivaroxaban 10 M g Tablet PO 10 mg DAILY [facility] Administration Sotalol HCl 80 mg 11/11/22 09:00 11/11/22 09:14 Sotalol 80 Mg Ta blet PO 80 mg BID SU[facility] Administration Tamsulosin HCl 0.8 mg 11/11/22 09:00 11/11/22 09:14 Tamsulosin 0.4 M g Capsule PO 0.8 mg DAILY SU[facility] Administration Vitals/I&O/Wt Last Vital Signs Temp 98.9 F 11/11/22 07:33 Pulse 115 H 11/11/22 09:52 Resp 25 H 11/11/22 07:33 BP 100/54 11/11/22 07:33 Pulse Ox 96 11/11/22 09:52 O2 Del Method Nasal Cannula 11/11/22 09:52 O2 Flow Rate 1.5 11/11/22 09:52 11/11/22 11/11/22 11/11/22 06:59 14:59 22:59 Intake Total 350 / 1500 290 / 290 Output Total 1150 / 1150 Balance -800 / 350 290 / 290 Weight last 48 hrs Weight 118.841 kg Physical Exam Const: COMMON NORMALS: patient oriented x3 HENMT: COMMON NORMALS: normocephalic and atraumatic HEAD & SCALP: n ormocephalic and atraumatic Resp: COMMON NORMALS: normal respiratory effort, No retractions, No use of accessory muscles and clear to auscultation bilaterally EFFORT & INSPECTION: Yes symmetric chest movement AUSCULTATION: clear to auscultation bilaterally Cardio: COMMON NORMALS: regular rate, regular rhythm, S1 normal heart sound present, S2 normal heart sound present, No gallops present (Cardio), No murmurs present (Cardio), No rub (Cardio) and Peripheral pulses 2+ throughout RATE: regular rate RHYTHM: regular rhythm HEART SOUNDS: S1 normal heart sound present and S2 normal heart sound present PERIPHERAL PULSES: Peripheral pulses 2+ throughout GI: COMMON NORMALS: Normal to inspection, nondistended, normoactive bowel sounds present, Soft to palpation, non-tender, No hepatosplenomegaly present and no masses AUSCULTATION: Yes normoactive bowel sounds PALPATION: Yes Soft to palpation and Yes No hepatosplenomegaly present RECTAL EXAM: Yes deferred Extremity: COMMON NORMALS: no clubbing, cyanosis or edema and no pedal edema NARRATIVE EXTREMITY EXAM: Left knee joint mild swelling present, incision site clean and dry. Neuro: COMMON NORMALS: patient oriented x3 Urinary Catheter Management: Coude: Cath Placed During This Visit: yes Reason for Continuing Indwelling Catheter: Other Urinary Catheter Date of Insertion: 11/10/22 Urinary Catheter Time of Insertion: 18:42 Data 11/11/22 03:39 11/11/22 08:43 Micro: Microbiology 11/11/22 00:05 Gram Stain - Final Synovial Fluid 11/11/22 03:44 Blood Culture - Preliminary Blood SPECIMEN COLLECTED 11/11/22 03:39 Blood Culture - Preliminary Blood SPECIMEN COLLECTED A&P Assessment and plan (1) Fever: (2) Atrial fibrillation with rapid ventricular response: (3) S/P CABG (coronary artery bypass graft): (4) Diabetes: (5) Peripheral arterial disease: (6) Ischemic cardiomyopathy: (7) Essential hypertension: (8) Obesity: (9) CAD (coronary artery disease): (10) Anticoagulation adequate with anticoagulant therapy: (11) BPH loc w urin obs/LUTS: Plan Fever, febrile up to 102 in the emergency room, WBC 16.4, neutrophilic -Chest x-ray no focal pneumonia -He has been self cathing himself, urine does show RBCs, does have a leukocyte esterase, but not really convincing for a UTI -Denies any headache, no blurry vision, no neck pain, no neck stiffness -No new rashes -No calf pain, no calf swelling however I will do a venous ultrasound as he has been taking half dose Xarelto -We will do a CT of his chest for possible pneumonia -CT abdomen pelvis as his urine does show RBCs 80-100, but it is likely from his self cath -Respiratory viral panel is negative -My concern is his left knee, it is swollen, erythematous, the x-ray I ordered in the emergency room did show moderate left knee joint effusion, moderate soft tissue swelling anterior medial to the knee, will order a CT of the knee -If the CT of the knee is abnormal, I would recommend transfer to tertiary level center or to where Dr. Ruiz works out of for evaluation for possible septic arthritis would recommend arthrocentesis, and continue broad-spectrum antibiotic therapy, vancomycin, Zosyn -We will see what the CT chest abdomen pelvis show -Although ESR is unrevealing at 22 -Pro-Kavon 0.47 -CRP pending -I would continue vancomycin, Zosyn follow blood cultures A-fib with RVR, has received diltiazem push in the emergency room -We will watch heart rates in the emergency room, consider Cardizem drip depending on what the heart rates to -Would continue Xarelto Mims catheter in place Type 2 diabetes mellitus, low-dose sliding scale Hyponatremia, component of pseudohyponatremia, monitor CKD, creatinine 2.0 monitor Full code Xarelto for DVT prop axis Attestations Medical Necessity Statement*: Needs to be in hospital for IV antibiotics. Coding Level of Care Code Acute Code for Chg Fwd Diagnoses Fever R50.9 Atrial fibrillation with rapid ventricular response I48.91 S/P CABG (coronary artery bypass graft) Z95.1 Diabetes E11.9 Peripheral arterial disease I73.9 Ischemic cardiomyopathy I25.5 Essential hypertension I10 Obesity E66.9 CAD (coronary artery disease) I25.10 Anticoagulation adequate with anticoagulant therapy Z79.01 BPH loc w urin obs/LUTS N40.1
--- NOTE | 2022-11-11 16:05 | PM.CONSULT ---
Providers/Reason For Consult Consulting Physician/Specialty*: Austin Haji MD; orthopedic surgeon Reason for Consult*: Knee pain Attending Physician: Armando Duran MD Primary Care Provider: Hernan Rees DO History of Present Illness History of Present Illness Nicolas Romero is a 77 year old male underwent elective left total knee arthroplasty in [facility] 2 weeks ago. Postoperatively he had problems with a urinary retention. He was discharged with a Mims catheter. Ultimately the Mims catheter again had to be replaced. He is here with his . They report that initially he was doing very well and in fact a few days ago and was giving up his walker and even beginning to drive. They state yesterday he began developing low-grade temperatures, malaise. He was seen in our emergency room with a fever up to 102 degrees. The left knee was tapped in the emergency room. Blood cell count was only 777. Cultures are pending Medications/Allergies Home Medications Medication Instructions Recorded Confirmed Last Taken Type atorvastatin 40 mg tablet 40 mg PO DAILY 09/07/19 11/11/22 05/22/22 History potassium chloride 10 mEq 10 meq PO DAILY 09/07/19 11/11/22 05/22/22 History capsule,extended release sitagliptin phosphate 100 mg 100 mg PO DAILY 09/07/19 11/11/22 05/22/22 History tablet (Januvia) lisinopril 20 mg tablet 20 mg PO BID 11/10/19 11/11/22 05/22/22 History sotalol 80 mg tablet 80 mg PO BID #180 tabs 12/24/21 11/11/22 05/23/22 Rx amlodipine 10 mg tablet 10 mg PO DAILY #90 tabs 12/25/21 11/11/22 05/23/22 Rx acetaminophen 325 mg tablet 650 mg PO Q6H PRN Pain 11/05/22 11/11/22 Unknown History furosemide 40 mg tablet 40 mg PO BID 11/05/22 11/11/22 Unknown History nitrofurantoin macrocrystal 100 mg 100 mg PO BID 11/05/22 11/11/22 Unknown History capsule psyllium husk 0.4 gram capsule 0.8 g PO DAILY PRN unknown 11/05/22 11/11/22 Unknown History (Metamucil) tamsulosin 0.4 mg capsule (Flomax) 0.8 mg PO DAILY 11/05/22 11/11/22 Unknown History albuterol sulfate 2.5 mg/3 mL 2.5 mg inhalation TID PRN 11/11/22 11/11/22 Unknown History (0.083 %) solution for nebulization Shortness Of Breath albuterol sulfate 90 mcg/actuation 1 inh inhalation TID PRN Shortness 11/11/22 11/11/22 Unknown History breath activated powder inhaler Of Breath (ProAir RespiClick) amoxicillin 500 mg tablet 500 mg PO DAILY 11/11/22 11/11/22 Unknown History bisacodyl 5 mg tablet 5 mg PO DAILY PRN Constipation 11/11/22 11/11/22 Unknown History budesonide 0.5 mg/2 mL suspension 0.5 mg inhalation BID PRN copd 11/11/22 11/11/22 Unknown History for nebulization cholecalciferol (vitamin D3) 25 25 mcg PO DAILY 11/11/22 11/11/22 Unknown History mcg (1,000 unit) tablet (Vitamin D3) clotrimazole 1 % topical cream 1 applic topical BID 11/11/22 11/11/22 Unknown History (Antifungal (clotrimazole)) famotidine 20 mg tablet 20 mg PO BID 11/11/22 11/11/22 Unknown History metoprolol tartrate 25 mg tablet 25 mg PO BID 11/11/22 11/11/22 Unknown History oxycodone 5 mg tablet 5 mg PO Q4H PRN Pain 11/11/22 11/11/22 Unknown History rivaroxaban 10 mg tablet (Xarelto) 10 mg PO DAILY 11/11/22 11/11/22 Unknown History tramadol 50 mg tablet 50 mg PO Q6H PRN Pain 11/11/22 11/11/22 Unknown History Allergies Allergy/AdvReac Type Severity Reaction Status Date / Time No Known Allergies Allergy Verified 11/11/22 09:31 Current Medications Generic Name Dose Route Start Last Admin Trade Name Freq PRN Reason Stop Dose Admin Acetaminophen 650 mg 11/11/22 02:05 11/11/22 10:19 Acetaminophen 325 Mg Tablet PO 650 mg Q6H PRN Administration Mild/Mod Pain Or Temp >/= 101 Atorvastatin Calcium 40 mg 11/11/22 09:00 11/11/22 09:14 Atorvastatin 40 Mg Tablet PO 40 mg DAILY SUHAS Administration Diltiazem HCl 30 mg 11/11/22 02:15 11/11/22 09:10 Diltiazem 30 Mg Tablet PO Not Given Q6H [facility] Vancomycin/PEG/NADA/Lysine/Water 1,750 mg in 350 mls @ 233.333 mls/hr 11/11/22 04:00 11/11/22 06:37 Vancocin IV Infused Q24H [facility] Infusion Piperacillin Sod/Tazobactam 50 mls @ 12.5 mls/hr 11/11/22 05:00 11/11/22 14:50 Sod 3.375 gm/ Sodium Chloride IV 12.5 mls/hr Q8H [facility] Administration Protocol Insulin Human Lispro 0 unit 11/11/22 08:00 11/11/22 14:56 Insulin Lispro 100 Unit/1 Ml SUBCUT Not Given TIDWM [facility] Protocol Metoprolol Succinate 25 mg 11/11/22 09:00 11/11/22 09:10 Metoprolol Succinate Er (24 Hr) 50 Mg Tablet PO Not Given BID [facility] Pantoprazole Sodium 40 mg 11/11/22 02:15 11/11/22 02:28 Pantoprazole 40 Mg Sdv IVP 40 mg Q24H [facility] Administration Rivaroxaban 10 mg 11/11/22 09:00 11/11/22 09:14 Rivaroxaban 10 Mg Tablet PO 10 mg DAILY [facility] Administration Sotalol HCl 80 mg 11/11/22 09:00 11/11/22 09:14 Sotalol 80 Mg Tablet PO 80 mg BID SUHAS Administration Tamsulosin HCl 0.8 mg 11/11/22 09:00 11/11/22 09:14 Tamsulosin 0.4 Mg Capsule PO 0.8 mg DAILY SUHAS Administration PFSH Acute PFSH: Medical History Anticoagulation adequate with anticoagulant therapy Xarelto Atrial fibrillation BPH loc w urin obs/LUTS CAD (coronary artery disease) Diabetes Dyslipidemia Elevated PSA Essential hypertension Ischemic cardiomyopathy Morbid obesity Obesity Peripheral arterial disease Sleep apnea Urinary retention Surgical History H/O knee surgery History of carpal tunnel surgery of right wrist S/P appendectomy S/P CABG (coronary artery bypass graft) S/P cataract surgery S/P decompression of ulnar nerve at elbow S/P hernia repair Family History Mother CAD (coronary artery disease) Stroke Father CAD (coronary artery disease) Family/Other Diabetes Hypertension Social History Smoking and tobacco status: never smoked Alcohol intake: current Alcohol intake frequency: 0-2 Drinks per Day Alcohol type: wine Substance/Drug Use: never Adopted: No Caregiver/support person: No Marital status: / Current occupational status: retired Current gender identity: Male Vitals/I&O/Wt Last Vital Signs Temp 98.9 F 11/11/22 07:33 Pulse 115 H 11/11/22 09:52 Resp 25 H 11/11/22 07:33 BP 100/54 11/11/22 07:33 Pulse Ox 96 11/11/22 09:52 O2 Del Method Nasal Cannula 11/11/22 09:52 O2 Flow Rate 1.5 11/11/22 09:52 11/11/22 11/11/22 11/11/22 06:59 14:59 22:59 Intake Total 350 / 1500 290 / 290 Output Total 1150 / 1150 Balance -800 / 350 290 / 290 Weight last 48 hrs Weight 262 lb Physical Exam Narrative: The patient has a very benign appearing knee. Incision is clean and is Dermabond tape is removed. There is only minimal expected knee swelling for this point after surgery. There is no erythema. Motion is from full extension to 90 degrees. His patella tracks well. Ligaments are stable. Palpable left dorsalis pedis pulse. Will flex and extends left toes and ankle without motor deficits. Sensation intact to light touch. Urinary Catheter Management: Coude: Cath Placed During This Visit: yes Reason for Continuing Indwelling Catheter: Other Urinary Catheter Date of Insertion: 11/10/22 Urinary Catheter Time of Insertion: 18:42 Data 11/11/22 03:39 11/11/22 08:43 Micro: Microbiology 11/11/22 00:05 Gram Stain - Final Synovial Fluid 11/11/22 03:44 Blood Culture - Preliminary Blood SPECIMEN COLLECTED 11/11/22 03:39 Blood Culture - Preliminary Blood SPECIMEN COLLECTED A&P Assessment and plan (1) Status post left knee replacement: (2) Fever: Left knee does not clinically appear to be infected. His aspirate of only 770 white blood cells would not seem to support acute infection either. I can follow with the primary team on culture results. At this point I do not think this represents a postoperative infection. Coding Level of Care Code Acute Code for Chg Fwd Diagnoses Status post left knee replacement Z96.652 Fever R50.9
[2022-11-11 16:40] LABS: Glucose Point of Care 129 mg/dL (70-110)
[2022-11-11] MEDS: sodium chloride 0.9% 1,000 ML 75 ML IV (17:45)
[2022-11-11] MEDS: metoprolol succinate ER (24 HR) 50 mg Tablet 25 MG PO (17:48)
--- NOTE | 2022-11-11 20:48 | USCV_ITS ---
Nicolas Romero Age: 77 Gender: M : 1945 Exam Date: 11/11/2022 09:40 Ordering Phys: Ilan Driscoll MD Technologist: [place]am [place] [facility] [place] Indication: ? DVT PROCEDURES: The venous duplex Doppler examination of both lower extremities was performed in the standard fashion. The following venous structures were evaluated: common femoral vein, profunda vein, proximal portion of the greater saphenous vein, superficial femoral vein, and the popliteal vein. In addition, the posterior tibial and peroneal trunk were evaluated. FINDINGS: Normal 2-D Doppler and augmentation and compressibility throughout the lower extremity venous structures. Additional imaging through the proximal calf veins also reveals no thrombus. Limited evaluation of the greater saphenous vein is patent with no thrombus. CONCLUSIONS No evidence of right lower extremity DVT. No evidence of left lower extremity DVT. Nadeem Cat MD (Electronically Signed) Final Date: 12 Nov 2022 09:49 S
[2022-11-11 20:58] LABS: Glucose Point of Care 180 mg/dL (70-110)
[2022-11-12] VITALS (9 sets, daily range): BP systolic 110–133; BP diastolic 64–84; PULSE 61–111; RESP 14–22; TEMP 36.6–37.4; O2SAT 90–95
[2022-11-12] MEDS: acetaminophen 325 mg Tablet 650 MG PO ×3 (01:23→20:37)
[2022-11-12] MEDS: pantoprazole 40 mg SDV IVP (01:23)
[2022-11-12 03:29] LABS: Glucose Point of Care 126 mg/dL (70-110)
[2022-11-12] MEDS: vancomycin 1,750 MG/350 ML PIGGYBACK 150 MG IV (03:42)
[2022-11-12] MEDS: piperacillin-tazobactam 3.375 GM in sodium chloride 0.9% (plus) 50 ML IV ×3 (05:47→20:37)
[2022-11-12 06:32] LABS: Glucose Point of Care 132 mg/dL (70-110)
[2022-11-12 06:44] LABS: Basophils % 0.4 %; Eosinophils # 0.1 10^3/uL (0.0-0.8); Eosinophils % 1.2 %; Hematocrit 28.7 % (42.0-52.0); Hemoglobin 9.5 g/dL (11.7-16.6); Lymphocytes # 0.4 10^3/uL (0.8-4.8); Lymphocytes % 4.2 %; Mean Corpuscular HGB Conc 33.1 g/dL (30.0-36.0); Mean Corpuscular Hemoglobin 31.7 pg (28.0-34.0); Mean Corpuscular Volume 95.7 fl (80-94); Mean Platelet Volume 9.7 fL (7.4-10.4); Monocytes # 0.6 10^3/uL (0.2-0.9); Neutrophils # 8.96 10^3/uL (1.8-7.7); Nucleated Red Blood Cells % 0 %; Platelet Count 153 10^3/cmm (130-400); White Blood Count 10.3 10^3/uL (4.0-10.0)
[2022-11-12 07:04] LABS: Alanine Aminotransferase 8 U/L (0-41); Albumin Level 2.8 g/dL (3.5-5.2); Alkaline Phosphatase 107 U/L (40-130); Anion Gap 14.2 (5-19); Aspartate Amino Transferase 12 U/L (0-40); Blood Urea Nitrogen 28 mg/dL (8-23); Calcium 8.5 mg/dL (8.5-10.5); Carbon Dioxide 25 mmol/L (22-29); Chloride 96 mmol/L (98-107); Globulin 2.9 g/dL (1.3-4.6); Glucose 134 mg/dL (65-115); Osmolality Calculated 279 mOsm/kg (285-295); Potassium 4.2 mmol/L (3.5-5.1); Sodium 131 mmol/L (136-145); Total Bilirubin 0.6 mg/dL (0.15-1.2); Total Protein 5.7 g/dL (6.6-8.7)
[2022-11-12] MEDS: sodium chloride 0.9% 1,000 ML 75 ML IV (08:59)
[2022-11-12] MEDS: rivaroxaban 10 mg Tablet PO (09:00)
[2022-11-12] MEDS: tamsulosin 0.4 mg Capsule 0.8 MG PO (09:00)
[2022-11-12] MEDS: atorvastatin 40 mg Tablet PO (09:01)
[2022-11-12] MEDS: sotalol 80 mg Tablet PO ×2 (09:01→17:16)
[2022-11-12] MEDS: metoprolol succinate ER (24 HR) 50 mg Tablet 25 MG PO ×2 (09:01→17:17)
--- NOTE | 2022-11-12 11:04 | PC.CHAP ---
Pastoral Care Encounter/Spiritual Assessment Type of Contact [] Declined artist agent visit [] Patient/Family/Request visit [] Outpatient visit [] Follow-up visit [] Physician referral [] Code/Alert [] Routine visit [] Staff referral [] Actively dying [] Patient sleeping [] Family support [] [] Out of room [] Palliative care [] [x] Receiving care in room [] Pre-surgical visit [] Trauma [] Long length of stay [] ICU visit [] Other: Relational/Emotional Strength [] Patient feels connected with others/family/visitors/staff [] Distress [] Loneliness/isolation [] Abandonment Spirituality of Patient [] Person of [place] [] Attends Nondenominational of their [place] [] Believes in Prayer [] Reads Bible or Christianity materials [] There are Spiritual issues to be addressed Health Analytics Consultant Interventions [] Prayer [] Active listening [] Non-anxious presence [] Spiritual/emotional support [] Crisis/trauma care [] Spiritual counseling [] Bereavement support [] Provided bereavement packet [] Provided Bible/devotional materials [] Provided toy/stuffed animal, coloring book to patient or family member [] Provided Communion [] Anointing/[place] [] Salvation [] Completed spiritual assessment [] Other: Impact on Illness or Injury [] Angry [] Fearful [] Anxious [] Often cries [] Exhaustion [] Unable to work [] Unable to attend jehovah's witness [] Unable to walk/stand [] Unable to read [] Unable to drive [] Unable to eat/drink [] Unable to sleep [] Unable to be with family [] Patient intubated [] Other: Summary Time spent with patient
[2022-11-12 11:40] LABS: Glucose Point of Care 192 mg/dL (70-110)
[2022-11-12] MEDS: morphine 4 mg/mL SDV 1 mL 2 MG IVP (12:37)
[2022-11-12] MEDS: insulin lispro 100 unit/1 mL SUBCUT (12:43)
--- NOTE | 2022-11-12 13:16 | PM.PN ---
Subjective Subjective: Patient was seen and examined this morning, has been afebrile overnight, white blood cell count is trending down.He was complaining of the left knee pain, blood pressure is better controlled, heart rate control is improving. Hyponatremia has improved with IV fluids, Medications: Medication Review Details: Generic Name Dose Route Start Last Admin Trade Name Freq PRN Reason Stop Dose Admin Acetaminophen 650 mg 11/11/22 02:05 11/12/22 10:38 Acetaminophen 32 5 Mg Tablet PO 650 mg Q6H PRN Administration Mild/Mod Pain Or Temp >/= 101 Atorvastatin Calci um 40 mg 11/11/22 09:00 11/12/22 09:01 Atorvastatin 40 Mg Tablet PO 40 mg DAILY SUHSA Administration Vancomycin/PEG/NAD A/Lysine/Water 1,750 mg in 350 m ls @ 233.333 mls/h r 11/11/22 04:00 11/12/22 05:39 Vancocin IV Infused Q24H SUHAS Infusion Piperacillin Sod/T azobactam 50 mls @ 12.5 mls /hr 11/11/22 05:00 11/12/22 12:44 Sod 3.375 gm/ So dium Chloride IV 12.5 mls/hr Q8H SUHAS Administration Protocol Insulin Human Lisp ro 0 unit 11/11/22 08:00 11/12/22 12:43 Insulin Lispro 1 00 Unit/1 Ml SUBCUT 4 unit TIDWM SUHAS Administration Protocol Metoprolol Succina te 25 mg 11/11/22 09:00 11/12/22 09:01 Metoprolol Succi smith Er (24 Hr) 50 Mg Tablet PO 25 mg BID SUHAS Administration Morphine Sulfate 2 mg 11/11/22 02:05 11/12/22 12:37 Morphine 4 Mg/Ml Sdv 1 Ml IVP 2 mg Q4H PRN Administration SEVERE PAIN Pantoprazole Sodiu m 40 mg 11/11/22 02:15 11/12/22 01:23 Pantoprazole 40 Mg Sdv IVP 40 mg Q24H SUHAS Administration Rivaroxaban 10 mg 11/11/22 09:00 11/12/22 09:00 Rivaroxaban 10 M g Tablet PO 10 mg DAILY SUHAS Administration Sotalol HCl 80 mg 11/11/22 09:00 11/12/22 09:01 Sotalol 80 Mg Ta blet PO 80 mg BID SUHAS Administration Tamsulosin HCl 0.8 mg 11/11/22 09:00 11/12/22 09:00 Tamsulosin 0.4 M g Capsule PO 0.8 mg DAILY SUHAS Administration Vitals/I&O/Wt Last Vital Signs Temp 97.8 F 11/12/22 12:00 Pulse 108 H 11/12/22 12:00 Resp 14 11/12/22 12:37 BP 133/74 11/12/22 12:00 Pulse Ox 94 11/12/22 12:00 O2 Del Method Room Air 11/12/22 08:02 O2 Flow Rate 3 11/12/22 08:00 11/11/22 11/12/22 11/12/22 22:59 06:59 14:59 Intake Total 1110 / 1400 460 / 1860 2049 Output Total 1150 / 1150 1750 / 2900 Balance -40 / 250 -1290 / -1040 2049 Weight last 48 hrs Weight 118.841 kg Physical Exam Const: COMMON NORMALS: patient oriented x3 HENMT: COMMON NORMALS: normocephalic and atraumatic HEAD & SCALP: normocephalic and atraumatic Resp: COMMON NORMALS: clear to auscultation bilaterally AUSCULTATION: clear to auscultation bilaterally Cardio: COMMON NORMALS: regular rate, regular rhythm, S1 normal heart sound present, S2 normal heart sound present, No gallops present (Cardio), No murmurs present (Cardio), No rub (Cardio) and Peripheral pulses 2+ throughout RATE: regular rate RHYTHM: regular rhythm HEART SOUNDS: S1 normal heart sound present and S2 normal heart sound present PERIPHERAL PULSES: Peripheral pulses 2+ throughout GI: COMMON NORMALS: Normal to inspection, nondistended, normoactive bowel sounds present, Soft to palpation, non-tender, No hepatosplenomegaly present and no masses AUSCULTATION: Yes normoactive bowel sounds PALPATION: Yes Soft to palpation and Yes No hepatosplenomegaly present RECTAL EXAM: Yes deferred Extremity: COMMON NORMALS: no clubbing, cyanosis or edema and no pedal edema NARRATIVE EXTREMITY EXAM: Left knee joint mild swelling present, incision site clean and dry. Neuro: COMMON NORMALS: patient oriented x3 Urinary Catheter Management: Coude: Cath Placed During This Visit: yes Reason for Continuing Indwelling Catheter: Other Urinary Catheter Date of Insertion: 11/10/22 Urinary Catheter Time of Insertion: 18:42 Data 11/12/22 06:31 11/12/22 06:31 Micro: Microbiology 11/11/22 00:05 Gram Stain - Final Synovial Fluid Body Fluid Culture - Preliminary 11/10/22 18:40 Urine Culture - Preliminary Urine,Clean Catch Gram Negative Rods 11/11/22 03:44 Blood Culture - Preliminary Blood NEGATIVE TO DATE 11/11/22 03:39 Blood Culture - Preliminary Blood NEGATIVE TO DATE A&P Assessment and plan (1) Fever: (2) Atrial fibrillation with rapid ventricular response: (3) S/P CABG (coronary artery bypass graft): (4) Diabetes: (5) Peripheral arterial disease: (6) Ischemic cardiomyopathy: (7) Essential hypertension: (8) Obesity: (9) CAD (coronary artery disease): (10) Anticoagulation adequate with anticoagulant therapy: (11) BPH loc w urin obs/LUTS: Plan 77 year old male atrial fibrillation, status post cardioversion, currently on Xarelto, history of CAD status post CABG, history of dyslipidemia, diabetes, obesity, hypertension, sleep apnea, ischemic cardiomyopathy, peripheral arterial disease, r recently had a left knee replacement roughly 4 weeks ago, by Dr. Ruiz in [place] who presents [facility] due to fevers, fatigue, malaise, generalized weakness. Currently he is being managed for. Assessment: Possibly sepsis secondary to UTI as well as cystitis and prostatitis: Possibility of joint infection, though relatively low on clinical suspicion, and based on synovial fluid analysis. Patient meets sepsis criteria: Likely sepsis was present on admission: He was febrile, had elevated white cell count, was found into A-fib with RVR, had relative hypotension. CT chest abdomen and pelvis: Is suspicious for cystitis and prostatitis. CT knee LT wo con:No evidence for osteomyelitis,Large suprapatellar joint effusion.Diffuse copo-lu-oflpaxeb subcutaneous edema. Large complex fluid collection in the popliteal fossa. Findings suggest a hemorrhagic Devlin's cyst. Lower extremity Doppler vein is negative for DVT. ESR:22 Procalcitonin: 0.47 Lactic acid: 2.2 CRP: 101 Urine culture gram-negative los Blood culture negative till date Respiratory viral panel negative S/p left knee arthrocentesis: Synovial fluid analysis has shown: Synovial fluid WBC:777, synovial fluid RBC:16: Synovial fluid Gram stain and culture: Has shown many white blood cells, no organisms seen. Patient is currently on broad-spectrum antibiotics vancomycin and Zosyn Orthopedic and urology on board For A-fib with RVR: Patient had received Cardizem push in the ER, currently he is doing fine on metoprolol On Xarelto for anticoagulation History of acute urinary retention: After left knee replacement surgery, initially was on Mims catheter, lately he was doing self cath at home.Currently Mims catheter in place. Currently he is on Flomax. Urology on board Type 2 diabetes mellitus, low-dose sliding scale Hyponatremia: Has improved with IV hydration. Monitor serum sodium for now. CKD, creatinine 2.0 monitor Full code Xarelto for DVT prop axis Attestations Medical Necessity Statement*: Patient needs to be in hospital for management of sepsis. Need for IV antibiotics. Coding Level of Care Code Acute Code for Chg Fwd Diagnoses Fever R50.9 Atrial fibrillation with rapid ventricular response I48.91 S/P CABG (coronary artery bypass graft) Z95.1 Diabetes E11.9 Peripheral arterial disease I73.9 Ischemic cardiomyopathy I25.5 Essential hypertension I10 Obesity E66.9 CAD (coronary artery disease) I25.10 Anticoagulation adequate with anticoagulant therapy Z79.01 BPH loc w urin obs/LUTS N40.1
[2022-11-12] MEDS: docusate sodium 100 mg Capsule PO (17:16)
[2022-11-12 17:25] LABS: Glucose Point of Care 135 mg/dL (70-110)
--- NOTE | 2022-11-12 17:53 | P.CONIM_ITS ---
Providers/Reason For Consult Consulting Physician/Specialty*: Urology/[place] Reason for Consult*: Postoperative urinary retention and UTI Requesting Physician: Dr. Duran Attending Physician: Armando Duran MD Primary Care Provider: Hernan Rees DO History of Present Illness History of Present Illness Nicolas Romero is a 77 year old male who I last saw about 3 years ago for history of BPH/obstruction. He was doing well on maximal medical therapy of double dose TAMSULOSIN and FINASTERIDE (started September 2018). He had had a history of elevated PSA as well with large benign feeling prostate. After being placed on the finasteride his PSA decreased by >50%. At last visit his symptom score was low, his peak flow was good, he emptied his bladder very well and he was placed on return to clinic as needed basis with Dr. Rees his wrist closer to bead picker his BPH medications This hospitalization was initiated on 11/10/2022 when he presented to the emergency department with complaints of malaise weakness fever fatigue beginning that day and progressing throughout the day. Was found to have UTI and there was concern about a possible joint infection following knee replacement about 1 month ago in [place]. So far there has been no evidence on work-up of that knee being infected. Postoperatively though he did have urinary retention requiring at least 2 in and out catheterizations prior to discharge. Went home without a catheter. Within 48 hours he developed retention again and presented back to the emergency department at [facility] and had a catheter placed. Failed his first voiding trial when catheter removed by his primary care. Catheter replaced and was maintained for about 9 days before removed at Dr. Correa's office in [place] and he was taught self-catheterization with plan for follow-up sometime in December. Was placed on antibiotic therapy while on self-catheterization. Macrobid was used. Did self-catheterization well per his report. Was not having spontaneous voiding but was cathing roughly every 4-6 hours and getting a significant amount of volume. Eventually developed signs of infection and presented as described above. Work-up: * Urinalysis showed 15-25 white cells. Nitrite negative trace bacteria * Culture growing 20-30,000 colonies gram-negative rods final pending * CT scan showed evidence of perivesical and periprostatic inflammatory changes suspicious for infection. Bladder wall looked thickened somewhat with interpretation of findings that could be consistent with cystitis/prostatitis. * White blood cell count was elevated at 16.4. Creatinine was elevated at 2.0 but that appeared to be more chronic scenario * Cardiology consultation felt that there was no clear evidence of infection involving the knee. Treatment: * Vancomycin * Zosyn * Mims catheter Additional history: He does not remember why but he stopped the FINASTERIDE. Has been maintained on double dose TAMSULOSIN. He does not think over the last year and a half that he is voiding as well as he was when I saw him last. I have urgency and at times urgency incontinence along with decreasing force of stream. I expect that this was a slow development of increasing LUTS related to having stopped the finasteride. Recommendations: 1. Start FINASTERIDE for long-term improvement in voiding 2. Maintain Mims catheter for now rather than reinstitute SCIC given the history above. 3. Maintain TAMSULOSIN 0.4 mg twice a day 4. Modify antibiotic therapy based on culture results. I expect the low colony counts may be from suppression via the Macrobid at time of culture. 5. Will follow Review of Systems Const: Reports: fever(s), chills, malaise and other (Better now) Eyes: Denies: change in vision or yellow eyes ENMT: Denies: hoarseness Card: Denies: chest pain or palpitations Resp: Denies: dyspnea or productive cough GI: Denies: abdominal pain, nausea or vomiting : Reports: difficulty urinating; Denies: flank pain Musc: Reports: joint pain and joint swelling (Post knee replacement) Skin/Breast: Reports: rash Neuro: Reports: confusion; Denies: Slurred speech present Psych: Denies: memory loss Endo: Denies: flushing Edgardo/Lymph: Denies: easy bruising or easy bleeding All/Imm: Denies: acute wheezing Medications/Allergies Home Medications Medication Instructions Recorded Confirmed Last Taken Type atorvastatin 40 mg tablet 40 mg PO DAILY 09/07/19 11/11/22 05/22/22 History potassium chloride 10 mEq 10 meq PO DAILY 09/07/19 11/11/22 05/22/22 History capsule,extended release sitagliptin phosphate 100 mg 100 mg PO DAILY 09/07/19 11/11/22 05/22/22 History tablet (Januvia) lisinopril 20 mg tablet 20 mg PO BID 11/10/19 11/11/22 05/22/22 History sotalol 80 mg tablet 80 mg PO BID #180 tabs 12/24/21 11/11/22 05/23/22 Rx amlodipine 10 mg tablet 10 mg PO DAILY #90 tabs 12/25/21 11/11/22 05/23/22 Rx acetaminophen 325 mg tablet 650 mg PO Q6H PRN Pain 11/05/22 11/11/22 Unknown History furosemide 40 mg tablet 40 mg PO BID 11/05/22 11/11/22 Unknown History nitrofurantoin macrocrystal 100 mg 100 mg PO BID 11/05/22 11/11/22 Unknown History capsule psyllium husk 0.4 gram capsule 0.8 g PO DAILY PRN unknown 11/05/22 11/11/22 Unknown History (Metamucil) tamsulosin 0.4 mg capsule (Flomax) 0.8 mg PO DAILY 11/05/22 11/11/22 Unknown History albuterol sulfate 2.5 mg/3 mL 2.5 mg inhalation TID PRN 11/11/22 11/11/22 Unknown History (0.083 %) solution for nebulization Shortness Of Breath albuterol sulfate 90 mcg/actuation 1 inh inhalation TID PRN Shortness 11/11/22 11/11/22 Unknown History breath activated powder inhaler Of Breath (ProAir RespiClick) amoxicillin 500 mg tablet 500 mg PO DAILY 11/11/22 11/11/22 Unknown History bisacodyl 5 mg tablet 5 mg PO DAILY PRN Constipation 11/11/22 11/11/22 Unknown History budesonide 0.5 mg/2 mL suspension 0.5 mg inhalation BID PRN copd 11/11/22 11/11/22 Unknown History for nebulization cholecalciferol (vitamin D3) 25 25 mcg PO DAILY 11/11/22 11/11/22 Unknown History mcg (1,000 unit) tablet (Vitamin D3) clotrimazole 1 % topical cream 1 applic topical BID 11/11/22 11/11/22 Unknown History (Antifungal (clotrimazole)) famotidine 20 mg tablet 20 mg PO BID 11/11/22 11/11/22 Unknown History metoprolol tartrate 25 mg tablet 25 mg PO BID 11/11/22 11/11/22 Unknown History oxycodone 5 mg tablet 5 mg PO Q4H PRN Pain 11/11/22 11/11/22 Unknown History rivaroxaban 10 mg tablet (Xarelto) 10 mg PO DAILY 11/11/22 11/11/22 Unknown History tramadol 50 mg tablet 50 mg PO Q6H PRN Pain 11/11/22 11/11/22 Unknown History Allergies Allergy/AdvReac Type Severity Reaction Status Date / Time No Known Allergies Allergy Verified 11/11/22 09:31 Current Medications Generic Name Dose Route Start Last Admin Trade Name Freq PRN Reason Stop Dose Admin Acetaminophen 650 mg 11/11/22 02:05 11/12/22 10:38 Acetaminophen 325 Mg Tablet PO 650 mg Q6H PRN Administration Mild/Mod Pain Or Temp >/= 101 Atorvastatin Calcium 40 mg 11/11/22 09:00 11/12/22 09:01 Atorvastatin 40 Mg Tablet PO 40 mg DAILY SUHAS Administration Docusate Sodium 100 mg 11/12/22 18:00 11/12/22 17:16 Docusate Sodium 100 Mg Capsule PO 100 mg BID SUHAS Administration Vancomycin/PEG/NADA/Lysine/Water 1,750 mg in 350 mls @ 233.333 mls/hr 11/11/22 04:00 11/12/22 05:39 Vancocin IV Infused Q24H SUHAS Infusion Piperacillin Sod/Tazobactam 50 mls @ 12.5 mls/hr 11/11/22 05:00 11/12/22 16 :52 Sod 3.375 gm/ Sodium Chloride IV Infused Q8H SUHAS Infusion Protocol Insulin Human Lispro 0 unit 11/11/22 08:00 11/12/22 17:38 Insulin Lispro 100 Unit/1 Ml SUBCUT Not Given TIDWM [facility] Protocol Metoprolol Succinate 25 mg 11/11/22 09:00 11/12/22 17:17 Metoprolol Succinate Er (24 Hr) 50 Mg Tablet PO 25 mg BID SUHAS Administration Morphine Sulfate 2 mg 11/11/22 02:05 11/12/22 12:37 Morphine 4 Mg/Ml Sdv 1 Ml IVP 2 mg Q4H PRN Administration SEVERE PAIN Pantoprazole Sodium 40 mg 11/11/22 02:15 11/12/22 01:23 Pantoprazole 40 Mg Sdv IVP 40 mg Q24H SUHAS Administration Rivaroxaban 10 mg 11/11/22 09:00 11/12/22 09:00 Rivaroxaban 10 Mg Tablet PO 10 mg DAILY SUHAS Administration Sotalol HCl 80 mg 11/11/22 09:00 11/12/22 17:16 Sotalol 80 Mg Tablet PO 80 mg BID SUHAS Administration Tamsulosin HCl 0.8 mg 11/11/22 09:00 11/12/22 09:00 Tamsulosin 0.4 Mg Capsule PO 0.8 mg DAILY SUHAS Administration PFSH Acute PFSH: Medical History Anticoagulation adequate with anticoagulant therapy Xarelto Atrial fibrillation BPH loc w urin obs/LUTS CAD (coronary artery disease) Diabetes Dyslipidemia Elevated PSA Essential hypertension Ischemic cardiomyopathy Morbid obesity Obesity Peripheral arterial disease Sleep apnea Urinary retention Surgical History H/O knee surgery History of carpal tunnel surgery of right wrist S/P appendectomy S/P CABG (coronary artery bypass graft) S/P cataract surgery S/P decompression of ulnar nerve at elbow S/P hernia repair Family History Mother CAD (coronary artery disease) Stroke Father CAD (coronary artery disease) Family/Other Diabetes Hypertension Social History Smoking and tobacco status: never smoked Alcohol intake: current Alcohol intake frequency: 0-2 Drinks per Day Alcohol type: wine Substance/Drug Use: never Adopted: No Caregiver/support person: No Marital status: / Current occupational status: retired Current gender identity: Male Vitals/I&O/Wt Last Vital Signs Temp 98.1 F 11/12/22 15:39 Pulse 100 11/12/22 15:39 Resp 16 11/12/22 15:39 BP 110/67 11/12/22 15:39 Pulse Ox 95 11/12/22 15:39 O2 Del Method Room Air 11/12/22 08:02 O2 Flow Rate 3 11/12/22 08:00 11/12/22 11/12/22 11/12/22 06:59 14:59 22:59 Intake Total 460 / 1860 2555 / 2555 50 / 2605 Output Total 1750 / 2900 Balance -1290 / -1040 2555 / 2555 50 / 2605 Physical Exam Const: COMMON NORMALS: no acute distress, alert and well nourished GENERAL APPEARANCE: well kempt and well developed ORIENTATION/CONSCIOUSNESS: not confused Resp: COMMON NORMALS: normal respiratory effort EFFORT & INSPECTION: Yes able to speak in complete sentences, No labored and No Actively coughing GI: OTHER: Nondistended : OTHER: Catheter in place draining clear urine Neuro: COMMON NORMALS: no focal motor deficits SENSORIUM/ORIENTATION: Yes alert Psych: COMMON NORMALS: mental status grossly normal APPEARANCE: Yes grossly normal and Yes well kempt ATTITUDE: Yes calm and Yes engaged Skin: COMMON NORMALS: no rashes or lesions noted and no jaundice GENERAL SKIN EXAM: no rashes or lesions noted Urinary Catheter Management: Coude: Cath Placed During This Visit: yes Reason for Continuing Indwelling Catheter: Other Urinary Catheter Date of Insertion: 11/10/22 Urinary Catheter Time of Insertion: 18:42 Data 11/13/22 03:11 11/13/22 03:11 Micro: Microbiology 11/11/22 00:05 Gram Stain - Final Synovial Fluid Body Fluid Culture - Preliminary 11/10/22 18:40 Urine Culture - Preliminary Urine,Clean Catch Gram Negative Rods 11/11/22 03:44 Blood Culture - Preliminary Blood NEGATIVE TO DATE 11/11/22 03:39 Blood Culture - Preliminary Blood NEGATIVE TO DATE A&P Assessment and plan (1) BPH loc w urin obs/LUTS: (2) Acute cystitis: (3) Acute urinary retention: (4) Prostatitis: Plan Continue antibiotics Continue Mims for now Restart FINASTERIDE Consult Attestations Medical Necessity Statement: See attending Coding Level of Care Code Acute Code for [facility] Fwd Diagnoses BPH loc w urin obs/LUTS N40.1 Acute cystitis N30.00 Acute urinary retention R33.8 Prostatitis N41.9
[2022-11-12 20:29] LABS: Glucose Point of Care 150 mg/dL (70-110)
[2022-11-12] MEDS: finasteride 5 mg Tablet PO (20:37)
[2022-11-13] VITALS (8 sets, daily range): BP systolic 130–150; BP diastolic 72–89; PULSE 60–73; RESP 16–18; TEMP 36.7–37.6; O2SAT 91–94
[2022-11-13] MEDS: pantoprazole 40 mg SDV IVP (01:33)
[2022-11-13] MEDS: acetaminophen 325 mg Tablet 650 MG PO (02:40)
[2022-11-13 03:36] LABS: Basophils % 0.3 %; Eosinophils # 0.2 10^3/uL (0.0-0.8); Eosinophils % 3.5 %; Hematocrit 28.6 % (42.0-52.0); Hemoglobin 9.4 g/dL (11.7-16.6); Lymphocytes # 0.4 10^3/uL (0.8-4.8); Lymphocytes % 5.5 %; Mean Corpuscular HGB Conc 32.9 g/dL (30.0-36.0); Mean Corpuscular Hemoglobin 31.9 pg (28.0-34.0); Mean Corpuscular Volume 96.9 fl (80-94); Monocytes # 0.5 10^3/uL (0.2-0.9); Monocytes % 7.7 %; Neutrophils # 5.25 10^3/uL (1.8-7.7); Neutrophils % 82.4 %; Nucleated Red Blood Cells % 0 %; Platelet Count 167 10^3/cmm (130-400); Red Blood Count 2.95 10^6/uL (4.1-5.3); Red Cell Distribution Width 14.1 % (12.1-15.1); White Blood Count 6.4 10^3/uL (4.0-10.0)
[2022-11-13 03:51] LABS: C Reactive Protein 135.9 mg/L (0.0-4.9)
[2022-11-13 03:55] LABS: Alanine Aminotransferase 10 U/L (0-41); Albumin Level 2.8 g/dL (3.5-5.2); Alkaline Phosphatase 102 U/L (40-130); Anion Gap 14.1 (5-19); Aspartate Amino Transferase 15 U/L (0-40); Blood Urea Nitrogen 25 mg/dL (8-23); Calcium 8.8 mg/dL (8.5-10.5); Carbon Dioxide 25 mmol/L (22-29); Chloride 99 mmol/L (98-107); Glucose 109 mg/dL (65-115); Osmolality Calculated 283 mOsm/kg (285-295); Potassium 4.1 mmol/L (3.5-5.1); Sodium 134 mmol/L (136-145); Total Bilirubin 0.6 mg/dL (0.15-1.2); Total Protein 5.8 g/dL (6.6-8.7)
[2022-11-13 04:01] LABS: Vancomycin Trough 11.2 ug/mL (10-15)
[2022-11-13] MEDS: vancomycin 1,750 MG/350 ML PIGGYBACK 233 MG IV (04:18)
[2022-11-13] MEDS: piperacillin-tazobactam 3.375 GM in sodium chloride 0.9% (plus) 50 ML IV ×2 (05:57→12:45)
[2022-11-13 06:49] LABS: Glucose Point of Care 134 mg/dL (70-110)
[2022-11-13] MEDS: tamsulosin 0.4 mg Capsule 0.8 MG PO (08:44)
[2022-11-13] MEDS: docusate sodium 100 mg Capsule PO ×2 (08:44→17:34)
[2022-11-13] MEDS: metoprolol succinate ER (24 HR) 50 mg Tablet 25 MG PO ×2 (08:44→17:34)
[2022-11-13] MEDS: atorvastatin 40 mg Tablet PO (08:44)
[2022-11-13] MEDS: rivaroxaban 10 mg Tablet PO (08:44)
[2022-11-13] MEDS: sotalol 80 mg Tablet PO ×2 (08:44→17:34)
[2022-11-13 11:21] LABS: Glucose Point of Care 161 mg/dL (70-110)
[2022-11-13] MEDS: insulin lispro 100 unit/1 mL SUBCUT (11:39)
[2022-11-13] MEDS: morphine 4 mg/mL SDV 1 mL 2 MG IVP (13:02)
--- NOTE | 2022-11-13 16:17 | PM.PN ---
Subjective Subjective: Patient was seen and examined this morning, overall he is doing better has been afebrile, urine culture has grown Serratia marcescens sensitive to cefepime, blood culture has continued to remain negative, synovial fluid culture: Has remained negative. Medications: Medication Review Details: Generic Name Dose Route Start Last Admin Trade Name Freq PRN Reason Stop Dose Admin Acetaminophen 650 mg 11/11/22 02:05 11/13/22 02:40 Acetaminophen 32 5 Mg Tablet PO 650 mg Q6H PRN Administration Mild/Mod Pain Or Temp >/= 101 Atorvastatin Calci um 40 mg 11/11/22 09:00 11/13/22 08:44 Atorvastatin 40 Mg Tablet PO 40 mg DAILY SUHAS Administration Docusate Sodium 100 mg 11/12/22 18:00 11/13/22 08:44 Docusate Sodium 100 Mg Capsule PO 100 mg BID SUHAS Administration Finasteride 5 mg 11/12/22 21:00 11/12/22 20:37 Finasteride 5 Mg Tablet PO 5 mg BEDTIME SUHAS Administration Vancomycin/PEG/NAD A/Lysine/Water 1,750 mg in 350 m ls @ 233.333 mls/h r 11/11/22 04:00 11/13/22 05:57 Vancocin IV Infused Q24H SUHAS Infusion Piperacillin Sod/T azobactam 50 mls @ 12.5 mls /hr 11/11/22 05:00 11/13/22 12:45 Sod 3.375 gm/ So dium Chloride IV 12.5 mls/hr Q8H SUHAS Administration Protocol Insulin Human Lisp ro 0 unit 11/11/22 08:00 11/13/22 11:39 Insulin Lispro 1 00 Unit/1 Ml SUBCUT 2 unit TIDWM SUHAS Administration Protocol Metoprolol Succina te 25 mg 11/11/22 09:00 11/13/22 08:44 Metoprolol Succi smith Er (24 Hr) 50 Mg Tablet PO 25 mg BID SUHAS Administration Morphine Sulfate 2 mg 11/11/22 02:05 11/13/22 13:02 Morphine 4 Mg/Ml Sdv 1 Ml IVP 2 mg Q4H PRN Administration SEVERE PAIN Pantoprazole Sodiu m 40 mg 11/11/22 02:15 11/13/22 01:33 Pantoprazole 40 Mg Sdv IVP 40 mg Q24H SUHAS Administration Rivaroxaban 10 mg 05/08/23 09:00 11/13/22 08:44 Rivaroxaban 10 M g Tablet PO 10 mg DAILY SUHAS Administration Sotalol HCl 80 mg 11/11/22 09:00 11/13/22 08:44 Sotalol 80 Mg Ta blet PO 80 mg BID SUHAS Administration Tamsulosin HCl 0.8 mg 11/11/22 09:00 11/13/22 08:44 Tamsulosin 0.4 M g Capsule PO 0.8 mg DAILY SUHAS Administration Vitals/I&O/Wt Last Vital Signs Temp 98.2 F 11/13/22 15:37 Pulse 60 11/13/22 15:37 Resp 16 11/13/22 15:37 BP 150/72 11/13/22 15:37 Pulse Ox 94 11/13/22 15:37 O2 Del Method Room Air 11/13/22 08:00 O2 Flow Rate 3 11/13/22 08:00 11/13/22 11/13/22 11/13/22 06:59 14:59 22:59 Intake Total 400 / 3385 890 / 890 Output Total 1250 / 1250 Balance -850 / 2135 890 / 890 Physical Exam Const: COMMON NORMALS: patient oriented x3 HENMT: COMMON NORMALS: normocephalic and atraumatic HEAD & SCALP: normocephalic and atraumatic Resp: COMMON NORMALS: clear to auscultation bilaterally EFFORT & INSPECTION: Yes symmetric chest movement AUSCULTATION: clear to auscultation bilaterally Cardio: COMMON NORMALS: regular rate, regular rhythm, S1 normal heart sound present, S2 normal heart sound present, No gallops present (Cardio), No murmurs present (Cardio), No rub (Cardio) and Peripheral pulses 2+ throughout RATE: regular rate RHYTHM: regular rhythm HEART SOUNDS: S1 normal heart sound present and S2 normal heart sound present PERIPHERAL PULSES: Peripheral pulses 2+ throughout GI: COMMON NORMALS: Normal to inspection, nondistended, normoactive bowel sounds present, Soft to palpation, non-tender, No hepatosplenomegaly present and no masses AUSCULTATION: Yes normoactive bowel sounds PALPATION: Yes Soft to palpation and Yes No hepatosplenomegaly present RECTAL EXAM: Yes deferred Extremity: COMMON NORMALS: no clubbing, cyanosis or edema and no pedal edema NARRATIVE EXTREMITY EXAM: Left knee joint mild swelling present, incision site clean and dry. Neuro: COMMON NORMALS: patient oriented x3 Urinary Catheter Management: Coude: Cath Placed During This Visit: yes Reason for Continuing Indwelling Catheter: Other Urinary Catheter Date of Insertion: 11/10/22 Urinary Catheter Time of Insertion: 18:42 Data 11/13/22 03:11 11/13/22 03:11 Micro: Microbiology 11/10/22 18:40 Urine Culture - Final Urine,Clean Catch Serratia marcescens 11/11/22 00:05 Gram Stain - Final Synovial Fluid Body Fluid Culture - Preliminary A&P Assessment and plan (1) Fever: (2) Atrial fibrillation with rapid ventricular response: (3) S/P CABG (coronary artery bypass graft): (4) Diabetes: (5) Peripheral arterial disease: (6) Ischemic cardiomyopathy: (7) Essential hypertension: (8) Obesity: (9) CAD (coronary artery disease): (10) Anticoagulation adequate with anticoagulant therapy: (11) BPH loc w urin obs/LUTS: Plan 77 year old male atrial fibrillation, status post cardioversion, currently on Xarelto, history of CAD status post CABG, history of dyslipidemia, diabetes, obesity, hypertension, sleep apnea, ischemic cardiomyopathy, peripheral arterial disease, r recently had a left knee replacement roughly 4 weeks ago, by Dr. Ruiz in [place] who presents [facility] due to fevers, fatigue, malaise, generalized weakness. Currently he is being managed for. Assessment: Possibly sepsis secondary to UTI as well as cystitis and prostatitis: Possibility of joint infection, though relatively low on clinical suspicion, and based on synovial fluid analysis. Patient meets sepsis criteria: Likely sepsis was present on admission: He was febrile, had elevated white cell count, was found into A-fib with RVR, had relative hypotension. CT chest abdomen and pelvis: Is suspicious for cystitis and prostatitis. CT knee LT wo con:No evidence for osteomyelitis,Large suprapatellar joint effusion.Diffuse [id number] subcutaneous edema. Large complex fluid collection in the popliteal fossa. Findings suggest a hemorrhagic Devlin's cyst. Lower extremity Doppler vein is negative for DVT. ESR:22 Procalcitonin: 0.47 Lactic acid: 2.2 CRP: 101 Urine culture: SM Blood culture negative till date Respiratory viral panel negative S/p left knee arthrocentesis: Synovial fluid analysis has shown: Synovial fluid WBC:777, synovial fluid RBC:16: Synovial fluid Gram stain and culture: Has shown many white blood cells, no organisms seen. Patient was initially on vancomycin and Zosyn, Zosyn was discontinued today and has been switched to cefepime. Based on the urine culture result. Orthopedic and urology on board For A-fib with RVR: Patient had received Cardizem push in the ER, currently he is doing fine on metoprolol On Xarelto for anticoagulation History of acute urinary retention: After left knee replacement surgery, initially was on Mims catheter, lately he was doing self cath at home.Currently Mims catheter in place. Currently he is on Flomax as well as finasteride Urology on board Type 2 diabetes mellitus, low-dose sliding scale Hyponatremia: Has improved with IV hydration. Monitor serum sodium for now. CKD, creatinine 2.0 monitor Full code Xarelto for DVT prop axis Attestations Medical Necessity Statement*: Patient is in hospital for management of sepsis need for IV antibiotic. Coding Level of Care Code Acute Code for g Fwd Diagnoses Fever R50.9 Atrial fibrillation with rapid ventricular response I48.91 S/P CABG (coronary artery bypass graft) Z95.1 Diabetes E11.9 Peripheral arterial disease I73.9 Ischemic cardiomyopathy I25.5 Essential hypertension I10 Obesity E66.9 CAD (coronary artery disease) I25.10 Anticoagulation adequate with anticoagulant therapy Z79.01 BPH loc w urin obs/LUTS N40.1
[2022-11-13 17:07] LABS: Glucose Point of Care 165 mg/dL (70-110)
[2022-11-13] MEDS: cefepime 1,000 MG in sodium chloride 0.9% (plus) 50 ML 100 MG IV (17:34)
[2022-11-13] MEDS: FUROsemide 40 mg Tablet PO (17:35)
--- NOTE | 2022-11-13 18:52 | PM.PN ---
Vitals/I&O/Wt Last Vital Signs Temp 98.2 F 11/13/22 15:37 Pulse 60 11/13/22 15:37 Resp 16 11/13/22 15:37 BP 150/72 11/13/22 15:37 Pulse Ox 94 11/13/22 15:37 O2 Del Method Room Air 11/13/22 08:00 O2 Flow Rate 3 11/13/22 08:00 11/13/22 11/13/22 11/13/22 06:59 14:59 22:59 Intake Total 400 / 3385 890 / 890 340 / 1230 Output Total 1250 / 1250 Balance -850 / 2135 890 / 890 340 / 1230 Physical Exam Narrative: Alert oriented no acute distress Normal mentation No labored respiration No audible wheezes Urine is clear. Extremities good range of motion Urinary Catheter Management: Coude: Cath Placed During This Visit: yes Reason for Continuing Indwelling Catheter: Acute Urinary Retention or Obstruction Urinary Catheter Date of Insertion: 11/10/22 Urinary Catheter Time of Insertion: 18:42 Data 11/13/22 03:11 11/13/22 03:11 Micro: Microbiology 11/10/22 18:40 Urine Culture - Final Urine,Clean Catch Serratia marcescens 11/11/22 00:05 Gram Stain - Final Synovial Fluid Body Fluid Culture - Preliminary A&P Assessment and plan (1) BPH loc w urin obs/LUTS: Longstanding (2) Acute cystitis: Clinically improved Serratia. Sensitive to cefepime and fluoroquinolones (3) Acute urinary retention: Managing with Mims catheter with plans for conversion to [facility] after discharge (4) Prostatitis: Clinically improved Plan Continue antibiotics, tamsulosin, finasteride Continue Mims for now I think it would be mckenzie to leave the catheter in at discharge and then do a voiding trial next week in my office with [facility] reinstruction. Attestations Medical Necessity Statement*: See attending Coding Level of Care Code Acute Code for Chg Fwd Diagnoses BPH loc w urin obs/LUTS N40.1 Acute cystitis N30.00 Acute urinary retention R33.8 Prostatitis N41.9
[2022-11-13] MEDS: finasteride 5 mg Tablet PO (20:19)
[2022-11-13 21:20] LABS: Glucose Point of Care 154 mg/dL (70-110)
[2022-11-14] VITALS: BP 156/79; PULSE 71; RESP 18; TEMP 37.1; O2SAT 96
[2022-11-14] MEDS: pantoprazole 40 mg SDV IVP (02:21)
[2022-11-14] MEDS: vancomycin 1,750 MG/350 ML PIGGYBACK 233 MG IV (03:17)
[2022-11-14 05:00] VITALS: BP 138/77; PULSE 109; RESP 18; TEMP 37; O2SAT 92
[2022-11-14 05:05] LABS: Basophils % 0.4 %; Eosinophils # 0.2 10^3/uL (0.0-0.8); Eosinophils % 3.1 %; Hematocrit 28.1 % (42.0-52.0); Lymphocytes # 0.6 10^3/uL (0.8-4.8); Lymphocytes % 10.2 %; Mean Corpuscular Hemoglobin 30.8 pg (28.0-34.0); Mean Corpuscular Volume 96.2 fl (80-94); Monocytes # 0.7 10^3/uL (0.2-0.9); Monocytes % 12.4 %; Neutrophils # 4.03 10^3/uL (1.8-7.7); Neutrophils % 73.4 %; Nucleated Red Blood Cells % 0 %; Platelet Count 187 10^3/cmm (130-400); Red Blood Count 2.92 10^6/uL (4.1-5.3); Red Cell Distribution Width 14.4 % (12.1-15.1); White Blood Count 5.5 10^3/uL (4.0-10.0)
[2022-11-14] MEDS: cefepime 1,000 MG in sodium chloride 0.9% (plus) 50 ML 100 MG IV (05:22)
[2022-11-14 05:34] LABS: Alanine Aminotransferase 17 U/L (0-41); Alkaline Phosphatase 133 U/L (40-130); Anion Gap 15.1 (5-19); Aspartate Amino Transferase 24 U/L (0-40); Blood Urea Nitrogen 19 mg/dL (8-23); Calcium 8.8 mg/dL (8.5-10.5); Carbon Dioxide 23 mmol/L (22-29); Chloride 98 mmol/L (98-107); Glucose 130 mg/dL (65-115); Osmolality Calculated 278 mOsm/kg (285-295); Potassium 4.1 mmol/L (3.5-5.1); Sodium 132 mmol/L (136-145); Total Bilirubin 0.4 mg/dL (0.15-1.2)
[2022-11-14 06:37] LABS: Glucose Point of Care 131 mg/dL (70-110)
[2022-11-14 07:33] VITALS: PULSE 94; O2SAT 99
[2022-11-14 08:00] VITALS: BP 109/74; PULSE 79; RESP 18; TEMP 36.7; O2SAT 95
[2022-11-14] MEDS: docusate sodium 100 mg Capsule PO (09:36)
[2022-11-14] MEDS: rivaroxaban 10 mg Tablet PO (09:36)
[2022-11-14] MEDS: sotalol 80 mg Tablet PO (09:37)
[2022-11-14] MEDS: metoprolol succinate ER (24 HR) 50 mg Tablet 25 MG PO (09:37)
[2022-11-14] MEDS: atorvastatin 40 mg Tablet PO (09:37)
[2022-11-14] MEDS: FUROsemide 40 mg Tablet PO (09:37)
[2022-11-14] MEDS: tamsulosin 0.4 mg Capsule 0.8 MG PO (09:37)
--- NOTE | 2022-11-14 09:43 | PM.DCS ---
Discharge Providers Date of Admission: 11/11/22 01:31 Date of Discharge: November 14, 2022 Attending Provider at Admission: Ilan Driscoll MD Attending Provider at Discharge: Armando Duran MD Primary Care Provider: Hernan Rees DO Diagnoses at Discharge Discharge Diagnosis (1) BPH loc w urin obs/LUTS: Status: Acute (2) Acute cystitis: Status: Acute (3) Acute urinary retention: Status: Acute (4) Prostatitis: Status: Acute Reason for Visit Reason for Visit: WEAKNESS; FEVER Hospital Course Hospital Course 77 year old male atrial fibrillation, status post cardioversion, currently on Xarelto, history of CAD status post CABG, history of dyslipidemia, diabetes, obesity, hypertension, sleep apnea, ischemic cardiomyopathy, peripheral arterial disease, r recently had a left knee replacement roughly 4 weeks ago, by Dr. Ruiz in [place] who presents [facility] due to fevers, fatigue, malaise, generalized weakness during the hospital stay he was managed for sepsis secondary to UTI as well as cystitis and prostatitis, prosthetic joint infection was ruled out, based on the synovial fluid analysis as well as, synovial fluid culture and Gram stain being negative.CT chest abdomen and pelvis: Is suspicious for cystitis and prostatitis. CT knee LT wo con:No evidence for osteomyelitis,Large suprapatellar joint effusion.Diffuse vhnj-jq-ljdhicxk subcutaneous edema. Large complex fluid collection in the popliteal fossa. Findings suggest a hemorrhagic Devlin's cyst. Lower extremity Doppler vein is negative for DVT.,ESR:22,Procalcitonin: 0.47,Lactic acid: 2.2,CRP: 101,Urine culture: SM Blood culture negative,Respiratory viral panel negative. S/p left knee arthrocentesis: Synovial fluid analysis has shown: Synovial fluid WBC:777, synovial fluid RBC:16: Synovial fluid Gram stain and culture: Has shown many white blood cells, no organisms seen.Initially he was kept on vancomycin and Zosyn, later Zosyn was switched to cefepime, based on urine culture, findings, he was discharged on p.o. levofloxacin, for another 14 days. On admission patient was also found to be in A-fib with RVR, had received ross blocking agent, was continued on Xarelto, for anticoagulation.Heart rate was pretty decently controlled at the time of discharge.During the hospital stay patient was also seen by urology for his recent history of acute urinary retention, currently he was discharged on, indwelling Mims catheter, current plan is to follow-up with urology as outpatient, he was on Flomax from before, finasteride was added on this hospital admission. Orthopedic was also on board given suspicion for possible prosthetic joint infection.Overall patient responded well to above medical management he was discharged in stable condition to home. Prior to discharge patient was in hemodynamically stable condition. He will follow PCP urology orthopedic as outpatient. Physical Exam Const: COMMON NORMALS: patient oriented x3 HENMT: COMMON NORMALS: normocephalic and atraumatic HEAD & SCALP: normocephalic and atraumatic Resp: COMMON NORMALS: clear to auscultation bilaterally AUSCULTATION: clear to auscultation bilaterally Cardio: COMMON NORMALS: regular rate, regular rhythm, S1 normal heart sound present, S2 normal heart sound present, No gallops present (Cardio), No murmurs present (Cardio), No rub (Cardio) and Peripheral pulses 2+ throughout RATE: regular rate RHYTHM: regular rhythm HEART SOUNDS: S1 normal heart sound present and S2 normal heart sound present PERIPHERAL PULSES: Peripheral pulses 2+ throughout GI: COMMON NORMALS: Normal to inspection, nondistended, normoactive bowel sounds present, Soft to palpation, non-tender, No hepatosplenomegaly present and no masses AUSCULTATION: Yes normoactive bowel sounds PALPATION: Yes Soft to palpation and Yes No hepatosplenomegaly present RECTAL EXAM: Yes deferred Extremity: COMMON NORMALS: no clubbing, cyanosis or edema and no pedal edema NARRATIVE EXTREMITY EXAM: Left knee joint mild swelling present, incision site clean and dry. Neuro: COMMON NORMALS: patient oriented x3 Urinary Catheter Management: Coude: Cath Placed During This Visit: yes Reason for Continuing Indwelling Catheter: Acute Urinary Retention or Obstruction Urinary Catheter Date of Insertion: 11/10/22 Urinary Catheter Time of Insertion: 18:42 Discharge Data Studies Completed and Pending Completed Studies During Hospitalization Category Date Time Status CT chest abdomen pelvis [[place] [id number] Cat Scan 11/10/22 20:27 Completed ] Stat CT knee LT wo con* [id number] Stat Cat Scan 11/10/22 20:51 Completed XR chest 1V portable [id number] Stat Exams 11/10/22 16:28 Completed XR knee LT 3V* [id number] Stat Exams 11/10/22 20:19 [place] [id number] Stat Ultrasound 11/11/22 20:48 Completed Pending at discharge Category Date Time Status Blood Culture Routine Lab 11/11/22 03:44 Results Body Fluid Culture & GS Stat Lab 11/11/22 00:05 Results Radiology Impressions Chest X-Ray 11/10/22 16:28 IMPRESSION: 1. No acute cardiopulmonary process. 2. Incidental/nonacute findings are listed in the report. Knee X-Ray 11/10/22 20:19 IMPRESSION: 1. No acute fracture of the left knee. Followup imaging recommended in 7-14 days if clinical concern for fracture persists. 2. Patient has had a previous left knee arthroplasty. No evidence for loosening of the surgical hardware. 3. Moderate left knee joint effusion. 4. Moderate soft tissue swelling anterior and medial to the left knee. 5. Incidental/nonacute findings are listed in the report. Chest/Abdomen/Pelvis CT 11/10/22 20:27 IMPRESSION: 1. No acute cardiopulmonary process. 2. Incidental/nonacute findings are listed in the report. IMPRESSION: 1. The bladder is decompressed by a Mims catheter.The bladder is incompletely filled, which can limit evaluation. Despite this, there is diffuse, moderate wall thickening of the bladder and inflammation around the bladder. Findings are suspicious for cystitis. Recommend correlation with laboratory findings. 2. The prostate gland is markedly enlarged. There is inflammation around the prostate gland suspicious for prostatitis. 3. Incidental/nonacute findings are listed in the report. COMMENTS: Consistent with the [employer]'s Incidental Findings Committee white paper (J Am Jeanna Radiol 2018): Any incidental renal lesion less than 1 cm or classified as too small to characterize, or any incidental cystic renal lesion characterized as simple-appearing, is likely benign. No follow-up imaging is recommended for these lesions per consensus recommendations based on imaging criteria. Knee CT 11/10/22 20:51 IMPRESSION: 1. No evidence for osteomyelitis. MRI without and with contrast may be obtained if there is continuing clinical concern for osteomyelitis. If the patient has any contradiction for MRI, 3 phase bone scan in conjunction with white blood cell scan may be obtained. Patient has had a previous left knee arthroplasty. No evidence for loosening of the surgical hardware. 2. Large suprapatellar joint effusion. 3. Diffuse ekbv-mo-bsqzohqg subcutaneous edema. 4. Large complex fluid collection in the popliteal fossa. Findings suggest a hemorrhagic Devlin's cyst. Laboratory Results WBC 5.5 10^3/uL (4.0-10.0) 11/14/22 04:35 RBC 2.92 10^6/uL (4.1-5.3) L 11/14/22 04:35 Hgb 9.0 g/dL (11.7-16.6) L 11/14/22 04:35 Hct 28.1 % (42.0-52.0) L 11/14/22 04:35 MCV 96.2 fl (80-94) H 11/14/22 04:35 MCH 30.8 pg (28.0-34.0) 11/14/22 04:35 MCHC 32.0 g/dL (30.0-36.0) 11/14/22 04:35 RDW 14.4 % (12.1-15.1) 11/14/22 04:35 Plt Count 187 10^3/cmm (130-400) 11/14/22 04:35 MPV 10.0 fL (7.4-10.4) 11/14/22 04:35 Neut % (Auto) 73.4 % 11/14/22 04:35 Lymph % (Auto) 10.2 % 11/14/22 04:35 [place] % (Auto) 12.4 % 11/14/22 04:35 Eos % (Auto) 3.1 % 11/14/22 04:35 Baso % (Auto) 0.4 % 11/14/22 04:35 Neut # (Auto) 4.03 10^3/uL (1.8-7.7) 11/14/22 04:35 Lymph # (Auto) 0.6 10^3/uL (0.8-4.8) L 11/14/22 04:35 [place] # (Auto) 0.7 10^3/uL (0.2-0.9) 11/14/22 04:35 Eos # (Auto) 0.2 10^3/uL (0.0-0.8) 11/14/22 04:35 Baso # (Auto) 0.0 10^3/uL (0.0-0.1) 11/14/22 04:35 Nucleated RBC % (auto) 0 % 11/14/22 04:35 Nucleated RBCs # 0.0 /100WBC 11/14/22 04:35 ESR 22 mm/hr (0-10) H 11/10/22 16:43 PT 18.30 SECONDS (12.1-14.9) H 11/10/22 16:43 INR 1.47 (0.8-1.2) H 11/10/22 16:43 D-Dimer 5.83 ug/mIFEU (0-0.59) H 11/10/22 16:43 Sodium 132 mmol/L (136-145) L 11/14/22 04:35 Potassium 4.1 mmol/L (3.5-5.1) 11/14/22 04:35 Chloride 98 mmol/L (98-107) 11/14/22 04:35 Carbon Dioxide 23 mmol/L (22-29) 11/14/22 04:35 Anion Gap 15.1 (5-19) 11/14/22 04:35 BUN 19 mg/dL (8-23) 11/14/22 04:35 Creatinine 1.5 mg/dL (0.7-1.2) H 11/14/22 04:35 GFR Calculation Not Reportable 11/14/22 04:35 Glucose 130 mg/dL (65-115) H 11/14/22 04:35 POC Glucose 131 mg/dL (70-110) H 11/14/22 06:15 Calculated Osmolality 278 mOsm/kg (285-295) L 11/14/22 04:35 Lactic Acid 2.2 mmol/L (0.5-2.2) 11/10/22 17:16 Lactic Acid (Sepsis) 1.0 mmol/L (0.5-2.2) 11/10/22 20:05 Calcium 8.8 mg/dL (8.5-10.5) 11/14/22 04:35 Total Bilirubin 0.4 mg/dL (0.15-1.2) 11/14/22 04:35 AST 24 U/L (0-40) 11/14/22 04:35 ALT 17 U/L (0-41) 11/14/22 04:35 Alkaline Phosphatase 133 U/L (40-130) H 11/14/22 04:35 Troponin T Baseline 65 ng/L (0-15) H 11/10/22 21:46 Troponin T 120 Minute 66.60 ng/L (0-15) H 11/10/22 23:27 Delta Troponin T 1.60 ABS# (0-10) 11/10/22 23:27 Troponin T Hi Sens 6Hr 73.49 ng/L (0-15) H 11/11/22 03:39 Troponin T Hi Sens 6Hr Delta 8.49 ng/L (0-12) 11/11/22 03:39 C-Reactive Protein 135.9 mg/L (0.0-4.9) H 11/13/22 03:11 NT-Pro-B Natriuret Pep 4004 pg/mL (0-450) H 11/10/22 17:16 Total Protein 6.0 g/dL (6.6-8.7) L 11/14/22 04:35 Albumin 3.0 g/dL (3.5-5.2) L 11/14/22 04:35 Globulin 3.0 g/dL (1.3-4.6) 11/14/22 04:35 Procalcitonin 0.47 ng/mL (0-0.5) 11/10/22 17:16 TSH 1.36 uIU/mL (0.27-4.20) 11/11/22 03:39 Urine Color Dark yellow (Yellow) 11/10/22 18:40 Urine Appearance Clear (CLEAR) 11/10/22 18:40 Urine pH 5 (5-7) 11/10/22 18:40 Ur Specific [place] 1.010 (1.005-1.030) 11/10/22 18:40 Urine Protein 1+ (Negative) H 11/10/22 18:40 Urine Glucose (UA) Norm (Normal) 11/10/22 18:40 Urine Ketones Negative (Negative) 11/10/22 18:40 Urine Blood 3+ (Negative) H 11/10/22 18:40 Urine Nitrate Negative (Negative) 11/10/22 18:40 Urine Bilirubin Neg (Negative) 11/10/22 18:40 Urine Urobilinogen Norm mg/dL (Negative) 11/10/22 18:40 Ur Leukocyte Esterase Trace (Negative) H 11/10/22 18:40 Urine RBC 80-100 /hpf (0-2) H 11/10/22 18:40 Urine WBC 15-25 /hpf (0-5) H 11/10/22 18:40 Ur Squamous Epith Cells 0-4 /hpf (0-5) H 11/10/22 18:40 Amorphous Sediment Not Reportable 11/10/22 18:40 Urine Bacteria Trace /hpf (NONE) 11/10/22 18:40 Synovial Color Shira (PALE YELLOW) 11/10/22 00:05 Synovial Appearance Hazy (CLEAR) 11/10/22 00:05 Synovial WBC 777 /uL (0-150) H 11/10/22 00:05 Synovial RBC 16 10^3/uL (0-0) H 11/10/22 00:05 Synovial Mononuclear 0.158 10^3/uL 11/10/22 00:05 Synov Polynuclear WBCs 0.619 10^3/uL 11/10/22 00:05 Synovial Other Cells Not Reportable 11/10/22 00:05 Synovial Polynuclear % 79.700 % 11/10/22 00:05 Synovial Mononuclear % 20.300 % 11/10/22 00:05 Nasal Influ A H1 2008 PCR Not detected (NOT DETECT) 11/10/22 16:43 Vancomycin Trough 11.2 ug/mL (10-15) 11/13/22 03:11 Adenovirus (PCR) Not detected (NOT DETECT) 11/10/22 16:43 C. pneumoniae DNA (PCR) Not detected (NOT DETECT) 11/10/22 16:43 Coronavirus 229E (PCR) Not detected (NOT DETECT) 11/10/22 16:43 Human Metapneumovir PCR Not detected (NOT DETECT) 11/10/22 16:43 Influenza A (H1) PCR Not detected (NOT DETECT) 11/10/22 16:43 Influenza A (H3) PCR Not detected (NOT DETECT) 11/10/22 16:43 Influenza Type A (PCR) Not detected (NOT DETECT) 11/10/22 16:43 Influenza Type B (PCR) Not detected (NOT DETECT) 11/10/22 16:43 M. pneumoniae (PCR) Not detected (NOT DETECT) 11/10/22 16:43 Parainfluenza 1 (PCR) Not detected (NOT DETECT) 11/10/22 16:43 Parainfluenza 2 (PCR) Not detected (NOT DETECT) 11/10/22 16:43 Parainfluenza 3 (PCR) Not detected (NOT DETECT) 11/10/22 16:43 Parainfluenza 4 (PCR) Not detected (NOT DETECT) 11/10/22 16:43 RSV Type A (PCR) Not detected (NOT DETECT) 11/10/22 16:43 RSV Type B (PCR) Not detected (NOT DETECT) 11/10/22 16:43 Entero/Rhino (PCR) Not detected (NOT DETECT) 11/10/22 16:43 SARS-CoV-2 (PCR) Not detected (NOT DETECT) 11/10/22 16:43 Path Cons w/Slide Yes 11/10/22 00:05 Vitals Last Vital Signs Temp 98.1 F 11/14/22 08:00 Pulse 79 11/14/22 08:00 Resp 18 11/14/22 08:00 BP 109/74 11/14/22 08:00 Pulse Ox 95 11/14/22 08:00 O2 Del Method Room Air 11/14/22 08:00 O2 Flow Rate 2 11/13/22 20:00 Discharge Plan Discharge Patient Disposition: Home Health Service Condition: Stable Prescriptions: New levofloxacin 500 mg tablet 500 mg PO DAILY 14 Days Qty: 14 0RF finasteride 5 mg tablet 5 mg PO DAILY 30 Days Qty: 30 3RF Continued potassium chloride 10 mEq capsule, extended release 10 meq PO DAILY atorvastatin 40 mg tablet 40 mg PO DAILY Januvia 100 mg tablet 100 mg PO DAILY tamsulosin [Flomax] 0.4 mg capsule 0.8 mg PO DAILY furosemide 40 mg tablet 40 mg PO BID psyllium husk [Metamucil] 0.4 gram capsule 0.8 g PO DAILY PRN (Reason: unknown) acetaminophen 325 mg tablet 650 mg PO Q6H PRN (Reason: Pain) sotalol 80 mg tablet 80 mg PO BID Qty: 180 3RF amlodipine 10 mg tablet 10 mg PO DAILY Qty: 90 3RF metoprolol tartrate 25 mg tablet 25 mg PO BID Vitamin D3 25 mcg (1,000 unit) Tablet 25 mcg PO DAILY albuterol sulfate 2.5 mg /3 mL (0.083 %) solution for nebulization 2.5 mg inhalation TID PRN (Reason: Shortness Of Breath) tramadol 50 mg tablet 50 mg PO Q6H PRN (Reason: Pain) famotidine 20 mg tablet 20 mg PO BID budesonide 0.5 mg/2 mL suspension for nebulization 0.5 mg inhalation BID PRN (Reason: copd) Antifungal (clotrimazole) 1 % cream 1 applic TOPICAL BID oxycodone 5 mg tablet 5 mg PO Q4H PRN (Reason: Pain) bisacodyl 5 mg Tablet 5 mg PO DAILY PRN (Reason: Constipation) Xarelto 10 mg tablet 10 mg PO DAILY Rx Instructions: for 14 days (rx filled 10/24/22)(pt also had a 20mg tab daily filled 08/13/22 90d/s) ProAir RespiClick 90 mcg/actuation aerosol powdr breath activated 1 inh INHALATION TID PRN (Reason: Shortness Of Breath) Held lisinopril 20 mg tablet 20 mg PO BID Hold Instructions: Resume on 11/21/22. Discontinued nitrofurantoin macrocrystal 100 mg capsule 100 mg PO BID Rx Instructions: for 7 days (rx filled 11/04/22) must administer with a meal/food amoxicillin 500 mg tablet 500 mg PO DAILY Rx Instructions: for 30d/s (rx filled 11/07/22) Discharge Orders: Discharge Order (Routine); Ordered 11/14/22 Ordered By: Armando Duran [place] [facility] [facility] [place]) [Outside] Simón Ruvalcaba MD [Physician] - 11/21/22 8:30 am Hernan Rees DO [Primary Care Provider] - 11/18/22 2:40 pm Patient Instructions: Levofloxacin (By mouth), Urinary Tract Infection in Men (GEN), Mims Catheter Placement and Care (GEN), Opioid Safety Discharge Attestations Time Spent in Discharge Care*: less than 30 min Quality Metrics Clinical Quality Measures [ No reported AMI, CVA or VTE this stay] Coding Level of Care Code Acute Code for Chg Fwd Diagnoses BPH loc w urin obs/LUTS N40.1 Acute cystitis N30.00 Acute urinary retention R33.8 Prostatitis N41.9
--- NOTE | 2022-11-14 10:45 | PC.PHAR ---
Addendum entered by Antonio Baeza 11/14/22 10:57: With the new dose/frequency of 1750mg every 18 hours, the predicted peak will be 34.1 mcg/ml and the trough 14.33 mcg/ml. Original Note: PHARMACY TO DOSE - VANCOMYCIN With the patient's improved CrCl, we recalculated the patient's frequency to every 18 hours instead of every 24. We will continue to monitor the patient's status and make adjustments as needed. Please let us know if there is anything else that we can do for you. Thanks, Stepan Baeza, Pharm.D
[2022-11-14 11:02] LABS: Glucose Point of Care 192 mg/dL (70-110)
[2022-11-14 12:00] VITALS: BP 138/92; PULSE 112; RESP 16; TEMP 36.7; O2SAT 93
[2022-11-14 13:51] VITALS: BP 138/92; PULSE 112; RESP 16; TEMP 36.7; O2SAT 93
== END 2022-11-14 11:30 | disposition home or self-care (01) | DRG 690 ==
LOC: ER 11-11 01:17 → CSU 11-11 01:32 → MEDSURG 11-11 12:23
PROVIDERS: Emergency Medicine; Admitting Provider Family Medicine; Emergency Provider Emergency Medicine; PCP Internal Medicine; Visit Provider Internal Medicine
DX: N30.00 Acute cystitis without hematuria (principal); E87.1 Hypo-osmolality and hyponatremia; I48.91 Unspecified atrial fibrillation; I25.10 Atherosclerotic heart disease of native coronary artery without angina pectoris; Z95.1 Presence of aortocoronary bypass graft; E78.5 Hyperlipidemia, unspecified; E11.51 Type 2 diabetes mellitus with diabetic peripheral angiopathy without gangrene; I12.9 Hypertensive chronic kidney disease with stage 1 through stage 4 chronic kidney disease, or unspecified chronic kidney disease; E11.22 Type 2 diabetes mellitus with diabetic chronic kidney disease; N18.9 Chronic kidney disease, unspecified; Z96.652 Presence of left artificial knee joint; N41.9 Inflammatory disease of prostate, unspecified; M71.22 Synovial cyst of popliteal space [Baker], left knee; Z79.84 Long term (current) use of oral hypoglycemic drugs; Z79.51 Long term (current) use of inhaled steroids; Z79.891 Long term (current) use of opiate analgesic; Z79.01 Long term (current) use of anticoagulants; N40.1 Benign prostatic hyperplasia with lower urinary tract symptoms; N13.8 Other obstructive and reflux uropathy; R33.8 Other retention of urine; I95.9 Hypotension, unspecified; B96.89 Other specified bacterial agents as the cause of diseases classified elsewhere; E66.01 Morbid (severe) obesity due to excess calories; R97.20 Elevated prostate specific antigen [PSA]; Z68.35 Body mass index [BMI] 35.0-35.9, adult; Z98.890 Other specified postprocedural states
CPT/HCPCS: 36415; 36416; 51702; 51798; 71045; 71250; 73562; 73700; 74176; 80053; 80202; 80503; 81001; 82962; 83605; 83880; 84145; 84443; 84484; 85025; 85378; 85610; 85651; 86140; 87040; 87070; 87075; 87077; 87086; 87186; 87205; 87486; 87581; 87633; 89050; 93005; 93970; 94664; 96365; 96367; 96372; 96375; 97116; 97161; 99285; C9113; J0131; J0692; J1815; J1885; J2270; J2543; J3372; J3490; J7030

== ENCOUNTER → 2022-11-21 08:16 | Outpatient (BNVA) | payer MEDICARE, OTHER, SELFPAY | PROVIDERS: PCP Internal Medicine; Visit Provider Urology | DX: N40.1 Benign prostatic hyperplasia with lower urinary tract symptoms (principal); R33.9 Retention of urine, unspecified; N41.0 Acute prostatitis | CPT/HCPCS: 52000; 99214 ==

== ENCOUNTER 2022-11-25 10:19 | Outpatient (RCR) | payer SELFPAY | END 2022-12-04 23:59 | disposition home or self-care (01) | LOC: CR 10:19 | PROVIDERS: PCP Internal Medicine; Referring Provider Internal Medicine; Visit Provider Internal Medicine | DX: I25.10 Atherosclerotic heart disease of native coronary artery without angina pectoris ==

== ENCOUNTER 2022-12-06 12:53 | Outpatient (RCR) | payer SELFPAY | END 2023-01-03 23:59 | disposition home or self-care (01) | LOC: CR 12:53 | PROVIDERS: PCP Internal Medicine; Referring Provider Internal Medicine; Visit Provider Internal Medicine | DX: I25.10 Atherosclerotic heart disease of native coronary artery without angina pectoris ==

== ENCOUNTER → 2022-12-11 15:50 | Outpatient (BNVA) | payer OTHER, SELFPAY | PROVIDERS: PCP Internal Medicine; Visit Provider Internal Medicine | DX: I25.10 Atherosclerotic heart disease of native coronary artery without angina pectoris (principal); I48.91 Unspecified atrial fibrillation; G47.30 Sleep apnea, unspecified; I10 Essential (primary) hypertension; E66.9 Obesity, unspecified; I25.5 Ischemic cardiomyopathy; E78.5 Hyperlipidemia, unspecified; E11.9 Type 2 diabetes mellitus without complications; Z95.1 Presence of aortocoronary bypass graft; I73.9 Peripheral vascular disease, unspecified; Z79.01 Long term (current) use of anticoagulants; Z79.84 Long term (current) use of oral hypoglycemic drugs; Z68.34 Body mass index [BMI] 34.0-34.9, adult | CPT/HCPCS: 99214 ==

== ENCOUNTER → 2022-12-24 15:25 | Outpatient (BNVA) | payer OTHER, SELFPAY | PROVIDERS: PCP Internal Medicine; Visit Provider Nurse Practitioner Family | DX: I48.91 Unspecified atrial fibrillation (principal); Z79.01 Long term (current) use of anticoagulants; I25.10 Atherosclerotic heart disease of native coronary artery without angina pectoris; Z95.1 Presence of aortocoronary bypass graft; E78.5 Hyperlipidemia, unspecified; E66.9 Obesity, unspecified; I10 Essential (primary) hypertension; G47.30 Sleep apnea, unspecified; I42.9 Cardiomyopathy, unspecified; E11.51 Type 2 diabetes mellitus with diabetic peripheral angiopathy without gangrene; I25.5 Ischemic cardiomyopathy; D64.9 Anemia, unspecified | CPT/HCPCS: 93005; 99214 ==

== ENCOUNTER 2022-12-30 05:52 | Outpatient (CLI) | payer OTHER, SELFPAY ==
[2022-12-26 09:56] VITALS: BMI 33.5
--- NOTE | 2022-12-30 06:15 | ECG_ITS ---
[facility] Test Date: 2022-12-30 Pat Name: Nicolas Romero Department: Room: Gender: Male Book Author: : [id number] Requested By: Alek Parker Order Number: [id number] Andreina MD: Alek Parker M.D. Measurements Intervals [place] Rate: 59 P: 67 TX: 213 QRS: 14 QRSD: 118 T: 41 QT: 456 QTc: 454 Interpretive Statements SINUS BRADYCARDIA WITH FIRST DEGREE AV BLOCK MODERATE INTRAVENTRICULAR CONDUCTION DELAY [105+ ms QRS DURATION, 80+ ms Q/S IN V1/V2, NO Q AND 60+ ms R IN I/aVL/V5/V6] Compared to ECG 12/24/2022 15:33:16 First degree AV block now present Atrial flutter no longer present T-wave abnormality no longer present Possible ischemia no longer present Electronically Signed On 12-30-2022 9:38:19 CDT by Alek Parker M.D. [email or web address]
[2022-12-30] MEDS: sodium chloride 0.9% 1,000 ML 30 ML IV (06:22)
[2022-12-30 06:23] VITALS: BP 117/65; PULSE 58; RESP 16; TEMP 36.3; O2SAT 99
[2022-12-30 06:33] LABS: Glucose Point of Care 142 mg/dL (70-110)
--- NOTE | 2022-12-30 06:33 | ANES.PREANE2 ---
Pre-Anesthetic Assessment Height/Weight: Height 1.83 m Weight 112.037 kg Temp Pulse Resp BP Pulse Ox O2 Del Method 97.4 F L 58 L 16 117/65 99 Room Air 12/30/22 06:23 12/30/22 06:23 12/30/22 06:23 12/30/22 06:23 12/30/22 06:23 12/30/22 06:23 Operation Date: 12/30/22 07:00 Proposed Procedures s LANRE(Not Applicable) - Alek Parker M.D p Lanre/cardioversion [id number], I48.91 Need anesthesia(Not Applicable) - Alek Parker M.D Familial anesthetic complications: Urinary issues Was Beta Sarabjit taken within 24 hours: Yes Was Clonidine taken within 24 hours: N/A Last intake: Intake Last Liquid Date 12/29/22 Last Liquid Time 19:00 Last Solid Date 12/29/22 Last Solid Time 19:00 Social No alcohol and No tobacco Exam alert, oriented x 3, clear to auscultation bilaterally and regular rate & rhythm Airway Submandibular: within normal limits Cervical ROM: within normal limits Mallampati: Class III Dentition: full History/ROS No significant history except as noted Pulmonary Chronic Obstructive Pulmonary Disease, Exertional Dyspnea and Sleep Apnea CV/HEM Atrial Fibrillation, Arrythmia, Coronary Artery Disease and Hypertension CABGx2 in 2013 Conclusion: 1.? Normal EKG response to Lexiscan infusion 2.? No Lexiscan induced chest pain or cardiac arrhythmia. 3.? Normal blood pressure and heart rate response. 4.? Sestamibi/sestamibi perfusion scan pending; see separate report. BPH Hepatic None reported GI None reported Metabolic Diabetes Mellitus, Hyperlipidemia and Morbid Obesity [facility] [place] Lower Back Pain and Osteoarthritis/DJD Neuropsych Transient Ischemic Attack Had MRI for prior to ENT procedure and was told he had a stroke in the past. No deficits noted and patient experienced no stroke like symptoms Anesthetic Plan ASA status: 3 Anesthesia: Anesthesia Evaluation, General and MAC Risk of > 500 ml blood loss (7ml/kg in children): No Medications/Allergies Home Medications Medication Instructions Recorded Confirmed Last Taken Type atorvastatin 40 mg tablet 40 mg PO DAILY 09/07/19 12/30/22 12/30/22 History potassium chloride 10 mEq 10 meq PO DAILY 09/07/19 12/30/22 12/30/22 History capsule,extended release sitagliptin phosphate 100 mg 100 mg PO DAILY 09/07/19 12/30/22 12/30/22 History tablet (Januvia) lisinopril 20 mg tablet 20 mg PO BID 11/10/19 12/30/22 12/30/22 History acetaminophen 325 mg tablet 650 mg PO Q6H PRN Pain 11/05/22 12/30/22 12/30/22 History furosemide 40 mg tablet 40 mg PO BID 11/05/22 12/30/22 12/30/22 History psyllium husk 0.4 gram capsule 0.8 g PO DAILY PRN unknown 11/05/22 12/30/22 1 Month Ago History (Metamucil) ~11/29/22 tamsulosin 0.4 mg capsule (Flomax) 0.8 mg PO BID 11/05/22 12/30/22 12/30/22 History albuterol sulfate 2.5 mg/3 mL 2.5 mg inhalation TID PRN 11/11/22 12/30/22 1 Month Ago History (0.083 %) solution for nebulization Shortness Of Breath ~11/29/22 albuterol sulfate 90 mcg/actuation 1 inh inhalation TID PRN Shortness 11/11/22 12/30/22 1 Month Ago History breath activated powder inhaler Of Breath ~11/29/22 (ProAir RespiClick) bisacodyl 5 mg tablet 5 mg PO DAILY PRN Constipation 11/11/22 12/30/22 12/30/22 History budesonide 0.5 mg/2 mL suspension 0.5 mg inhalation BID PRN copd 11/11/22 12/30/22 1 Month Ago History for nebulization (Pulmicort) ~11/29/22 cholecalciferol (vitamin D3) 25 25 mcg PO DAILY 11/11/22 12/30/22 12/30/22 History mcg (1,000 unit) tablet (Vitamin D3) clotrimazole 1 % topical cream 1 applic topical BID PRN Rash 11/11/22 12/30/22 1 Month Ago History (Antifungal (clotrimazole)) ~11/29/22 famotidine 20 mg tablet 20 mg PO BID 11/11/22 12/30/22 12/30/22 History metoprolol tartrate 25 mg tablet 25 mg PO BID 11/11/22 12/30/22 12/30/22 History oxycodone 5 mg tablet 5 mg PO Q4H PRN Pain 11/11/22 12/30/22 12/30/22 History tramadol 50 mg tablet 50 mg PO Q6H PRN Pain 11/11/22 12/30/22 12/28/22 History methenamine hippurate 1 gram tablet 1 g PO BID Recurrent UTI #60 tabs 11/21/22 12/30/22 12/30/22 Rx amlodipine 10 mg tablet 10 mg PO DAILY #90 tabs 12/23/22 12/30/22 12/30/22 Rx dutasteride 0.5 mg capsule 0.5 mg PO DAILY 12/24/22 12/30/22 12/30/22 History (Avodart) rivaroxaban 10 mg tablet (Xarelto) 20 mg PO DAILY 12/24/22 12/30/22 12/30/22 History sotalol 80 mg tablet 120 mg PO BID 12/24/22 12/30/22 12/30/22 History Allergies Allergy/AdvReac Type Severity Reaction Status Date / Time No Known Allergies Allergy Verified 12/30/22 06:11 Current Medications Generic Name Dose Route Start Last Admin Trade Name Freq PRN Reason Stop Dose Admin Sodium Chloride 1,000 mls @ 30 mls/hr 12/30/22 06:00 12/30/22 06:22 Sodium Chloride 0.9% IV 12/31/22 05:59 30 mls/hr .Q24H SUHAS Administration PFSH Anesthesia Medical History Acute cystitis Acute urinary retention Anticoagulation adequate with anticoagulant therapy Xarelto Atrial fibrillation Atrial fibrillation with rapid ventricular response BPH loc w urin obs/LUTS CAD (coronary artery disease) Diabetes Dyslipidemia Elevated PSA Essential hypertension Fever Fever, unknown origin Ischemic cardiomyopathy Morbid obesity Obesity Peripheral arterial disease Prostatitis Sleep apnea Urinary retention Surgical History H/O knee surgery History of carpal tunnel surgery of right wrist S/P appendectomy S/P CABG (coronary artery bypass graft) S/P cataract surgery S/P decompression of ulnar nerve at elbow S/P hernia repair Status post left knee replacement Family History Mother CAD (coronary artery disease) Stroke Father CAD (coronary artery disease) Family/Other Diabetes Hypertension Social History Smoking and tobacco status: never smoked Alcohol intake: current Alcohol intake frequency: 0-2 Drinks per Day Alcohol type: wine Substance/Drug Use: never Adopted: No Caregiver/support person: No Marital status: / Current occupational status: retired Current gender identity: Male Data Anesthesia Cardiac Studies: Sestamibi Stress Test (Cardiology) 10/10/22
--- NOTE | 2022-12-30 07:26 | PM.MISC ---
Miscellaneous Note Purpose of Documentation: Brief note Note: Patient was a scheduled for ROBERT cardioversion as well as staying [facility] with RVR. Last week we had increased his sotalol dose to 120 mg twice daily. Today prior to the procedure, EKG showed sinus bradycardia with a heart rate of 59 bpm. As he is converted back to normal sinus rhythm, we will no longer need cardioversion. We will continue on current medications including anticoagulation, sotalol and metoprolol.
--- NOTE | 2022-12-30 07:30 | PC.NURSE ---
Patient in [facility] per EKG. Dr. Parker canceled procedure. Dr. Parker spoke with patient and is sending patient home. IV discontinued and patient discharged.
--- NOTE | 2022-12-30 13:47 | ANE.PACU2 ---
Inpatient post-anesthesia follow up: Airway intact: Yes Vital signs: Temperature 97.4 F Pulse Rate 58 Respiratory Rate 16 Blood Pressure 117/65 Pulse Oximetry 99 Oxygen Delivery Me thod Room Air Oxygen Flow Rate Fraction of Inspir ed Oxygen Hydration adequate: Yes Nausea and vomiting: No Pain level: 1 Mental status: Baseline
== END 2022-12-30 07:34 | disposition home or self-care (01) ==
LOC: GILAB 05:53
PROVIDERS: PCP Internal Medicine; Visit Provider Internal Medicine
PROC: 5A2204Z Restoration of Cardiac Rhythm, Single (ICD-10-PCS; principal; 2022-12-30 07:00)
PROC: (CPT 93312; 2022-12-30 07:00)
DX: R00.1 Bradycardia, unspecified (principal); I44.0 Atrioventricular block, first degree; I45.9 Conduction disorder, unspecified; J44.9 Chronic obstructive pulmonary disease, unspecified; I48.91 Unspecified atrial fibrillation; Z53.9 Procedure and treatment not carried out, unspecified reason
CPT/HCPCS: 36416; 82962; 93005; J7030

== ENCOUNTER 2023-01-09 09:55 | Outpatient (RCR) | payer SELFPAY | END 2023-02-03 23:59 | disposition home or self-care (01) | LOC: CR 09:55 | PROVIDERS: PCP Internal Medicine; Referring Provider Internal Medicine; Visit Provider Internal Medicine | DX: I25.10 Atherosclerotic heart disease of native coronary artery without angina pectoris ==

== ENCOUNTER → 2023-01-22 13:28 | Outpatient (BNVA) | payer OTHER, SELFPAY | PROVIDERS: PCP Internal Medicine; Visit Provider Nurse Practitioner Family | DX: I48.91 Unspecified atrial fibrillation (principal) | CPT/HCPCS: 99213 ==

== ENCOUNTER 2023-02-04 14:08 | Outpatient (RCR) | payer SELFPAY | END 2023-03-06 23:59 | disposition home or self-care (01) | LOC: CR 14:08 | PROVIDERS: PCP Internal Medicine; Referring Provider Internal Medicine; Visit Provider Internal Medicine | DX: Z09 Encounter for follow-up examination after completed treatment for conditions other than malignant neoplasm (principal); K63.5 Polyp of colon; K57.31 Diverticulosis of large intestine without perforation or abscess with bleeding; I25.10 Atherosclerotic heart disease of native coronary artery without angina pectoris ==

== ENCOUNTER → 2023-02-21 11:00 | Outpatient (BNVA) | payer OTHER, SELFPAY | PROVIDERS: PCP Internal Medicine; Visit Provider Nurse Practitioner Family | DX: I48.91 Unspecified atrial fibrillation (principal); Z79.01 Long term (current) use of anticoagulants | CPT/HCPCS: 99213 ==

== ENCOUNTER → 2023-03-04 11:06 | Outpatient (BNVA) | payer MEDICARE, OTHER, SELFPAY | PROVIDERS: PCP Internal Medicine; Visit Provider Nurse Practitioner Family | DX: L57.0 Actinic keratosis (principal); L57.8 Other skin changes due to chronic exposure to nonionizing radiation; L81.4 Other melanin hyperpigmentation; L85.3 Xerosis cutis; D22.5 Melanocytic nevi of trunk | CPT/HCPCS: 17000; 17003; 99213 ==

== ENCOUNTER 2023-03-07 11:10 | Outpatient (RCR) | payer SELFPAY | END 2023-04-05 23:59 | disposition home or self-care (01) | LOC: CR 11:10 | PROVIDERS: PCP Internal Medicine; Referring Provider Internal Medicine; Visit Provider Internal Medicine | DX: I25.10 Atherosclerotic heart disease of native coronary artery without angina pectoris ==

== ENCOUNTER 2023-04-08 09:41 | Outpatient (RCR) | payer SELFPAY | END 2023-05-06 23:59 | disposition home or self-care (01) | LOC: CR 09:41 | PROVIDERS: PCP Internal Medicine; Referring Provider Internal Medicine; Visit Provider Internal Medicine | DX: I25.10 Atherosclerotic heart disease of native coronary artery without angina pectoris ==

== ENCOUNTER 2023-05-08 15:26 | Outpatient (RCR) | payer SELFPAY | END 2023-06-05 23:59 | disposition home or self-care (01) | LOC: CR 15:26 | PROVIDERS: PCP Internal Medicine; Referring Provider Internal Medicine; Visit Provider Internal Medicine | DX: I25.10 Atherosclerotic heart disease of native coronary artery without angina pectoris ==

== ENCOUNTER 2023-05-29 16:00 | Emergency (ER) | payer MEDICARE, OTHER, SELFPAY ==
[2023-05-29 16:05] VITALS: BP 123/86; PULSE 128; RESP 17; TEMP 38.1; O2SAT 94; BMI 34.7
--- NOTE | 2023-05-29 16:17 | XRR_ITS ---
PROCEDURE INFORMATION: Exam: XR Left Hip Exam date and time: 05/29/2023 5:27 PM Age: 77 years old Clinical indication: Injury or trauma; Other: Lt knee/hip pain; Patient HX: Left hip/knee pain post fall TECHNIQUE: Imaging protocol: Radiologic exam of the left hip. Views: 2 or 3 views hip with pelvis when performed. COMPARISON: CR XR hip LT 2-3V wo/w pel* [id number] 05/12/2023 3:11 PM FINDINGS: Bones/joints: No fracture identified. Note, if the patient is unable to bear weight, there may be an occult fracture present and a left hip MRI would be indicated. Soft tissues: Unremarkable. XR/XR hip LT 2-3V wo/w pel* [id number] IMPRESSION: No fracture identified. Note, if the patient is unable to bear weight, there may be an occult fracture present and a left hip MRI would be indicated.
[2023-05-29 16:33] VITALS: BP 140/79; PULSE 119; RESP 18; O2SAT 92
--- NOTE | 2023-05-29 17:02 | W.ED.EXTPRO ---
HPI - Extremity Problem General: Chief complaint: Extremity Problem,Nontraumatic Stated complaint: fall Time Seen by Provider: 05/29/23 16:17 Source: patient Mode of arrival: ambulatory Limitations: no limitations History of Present Illness: 77-year-old male presents emergency room with generalized weakness he fell outside today. He has pain in his left hip but that is been a chronic things been weightbearing since he fell. He has a significant other with him earlier this week he is seeing a urologist while at home advised him to start doing self caths he is on Xarelto today he had difficulty controlling his urine has had gross hematuria to the point and sexually staining his slacks that he is wearing and can tell he has had hematuria with blood leaking through the fabric of his slacks in the groin region. He reports low-grade fever at home. Significant other at the bedside states he is seemed a little bit confused and disoriented to that time Caroline 2 and has had cystitis in the past. MD Complaint: joint pain Associated symptoms: Reports fever(s); Deny arthralgias, chest pain, myalgias, rash or short of breath Review of Systems Const: Reports: fever(s) Card: Denies: chest pain Resp: Denies: dyspnea GI: Denies: abdominal pain : Reports: urinary frequency, urinary urgency and hematuria; Denies: flank pain or dysuria Musc: Denies: neck pain or back pain Skin/Breast: Denies: rash PFSH ED PFSH: Medical History Acute cystitis Acute urinary retention Anticoagulation adequate with anticoagulant therapy Xarelto Atrial fibrillation Atrial fibrillation with rapid ventricular response BPH loc w urin obs/LUTS CAD (coronary artery disease) Diabetes Dyslipidemia Elevated PSA Essential hypertension Fever Fever, unknown origin Ischemic cardiomyopathy Morbid obesity Obesity Peripheral arterial disease Prostatitis Sleep apnea Urinary retention Surgical History H/O knee surgery History of carpal tunnel surgery of right wrist S/P appendectomy S/P CABG (coronary artery bypass graft) S/P cataract surgery S/P decompression of ulnar nerve at elbow S/P hernia repair Status post left knee replacement Family History Mother CAD (coronary artery disease) Stroke Father CAD (coronary artery disease) Family/Other Diabetes Hypertension Social History Smoking and tobacco/nicotine status: never used tobacco/nicotine Alcohol intake: current Alcohol intake frequency: 0-2 Drinks per Day Alcohol type: wine Substance/Drug Use: never Adopted: No Caregiver/support person: No Marital status: / Current occupational status: retired Current gender identity: Male Physical Exam Const: GENERAL APPEARANCE: cooperative and comfortable ORIENTATION/CONSCIOUSNESS: Yes awake, Yes oriented to person, Yes oriented to place and Yes oriented to time HENMT: COMMON NORMALS: normocephalic, atraumatic and hearing grossly normal bilaterally HEAD & SCALP: normocephalic and atraumatic Resp: COMMON NORMALS: normal respiratory effort, No retractions, No use of accessory muscles and clear to auscultation bilaterally AUSCULTATION: clear to auscultation bilaterally Cardio: COMMON NORMALS: regular rate, regular rhythm and No murmurs present (Cardio) RATE: regular rate RHYTHM: regular rhythm GI: COMMON NORMALS: Soft to palpation and No hepatosplenomegaly present AUSCULTATION: Yes normoactive bowel sounds PALPATION: Yes Soft to palpation, No Tenderness to palpation present (GI), No Guarding due to palpation present (GI) and Yes No hepatosplenomegaly present Extremity: COMMON NORMALS: normal to inspection, capillary refill normal, no clubbing, cyanosis or edema, no calf tenderness and no pedal edema Neuro: SENSORIUM/ORIENTATION: Yes oriented to person, Yes oriented to place and Yes oriented to time Skin: COMMON NORMALS: no rashes or lesions noted GENERAL SKIN EXAM: no rashes or lesions noted Course Vital Signs: Vital signs: Vital Signs Temperature 100.6 F H 05/29/23 16:05 Pulse Rate 119 H 05/29/23 16:33 Respiratory Rate 18 05/29/23 16:33 Blood Pressure 140/79 05/29/23 16:33 Pulse Oximetry 92 05/29/23 16:33 Oxygen Delivery Me thod Room Air 05/29/23 16:33 MDM - Extremity (Nontraumatic) Medical Decision Making Painless hematuria likely caused by trauma from self cath. Patient had urinary retention. Mims catheter was placed and the bladder was irrigated until clear bladder is draining well without difficulty at this point. Discharge patient home he will need to follow-up with urology. Patient has leukocytosis. Concerned about possibility of catheter induced infection we will start on Cipro culture urine. Medical Records I reviewed the patient's medical records. Lab Data I reviewed the patient's lab results. 05/29/23 16:52 05/29/23 16:52 Radiology Impressions Hip/Pelvis X-Ray 05/29/23 16:17 IMPRESSION: No fracture identified. Note, if the patient is unable to bear weight, there may be an occult fracture present and a left hip MRI would be indicated. Abdomen/Pelvis CT 05/29/23 17:04 IMPRESSION: 1. There is a 3.3 cm cyst in the lateral cortex of the left kidney with peripheral calcifications. There is a mildly complex 2.4 cm cyst in the inferior pole of the right kidney. These are incompletely assessed on this examination and a three-phase renal CT or renal MRI may be of benefit to exclude an underlying lesion. 2. No hydronephrosis or renal calculus. No hydroureter or stone in the bladder. COMMENTS: Consistent with the [employer]'s Incidental Findings Committee white paper (J Am Jeanna Radiol 2018): Any incidental renal lesion less than 1 cm or classified as too small to characterize, or any incidental cystic renal lesion characterized as simple-appearing, is likely benign. No follow-up imaging is recommended for these lesions per consensus recommendations based on imaging criteria. Knee X-Ray 05/29/23 17:36 IMPRESSION: Total left knee arthroplasty without evidence of hardware failure or loosening. Laboratory Results WBC 17.66 10^3/uL (3.29-11.43) H 05/29/23 16:52 RBC 4.14 10^6/uL (3.85-5.65) 05/29/23 16:52 Hgb 13.10 g/dL (11.27-16.99) 05/29/23 16:52 Hct 40.4 % (37-53) 05/29/23 16:52 MCV 97.6 fl (82-101) 05/29/23 16:52 MCH 31.6 pg (27-33) 05/29/23 16:52 MCHC 32.4 g/dL (30-55) 05/29/23 16:52 RDW 14.5 % (12.1-15.1) 05/29/23 16:52 Plt Count 221 10^3/cmm (157-399) 05/29/23 16:52 MPV 9.4 fL (7.4-10.4) 05/29/23 16:52 Neut % (Auto) 92.3 % 05/29/23 16:52 Lymph % (Auto) 2.6 % 05/29/23 16:52 Hubbard % (Auto) 3.9 % 05/29/23 16:52 Eos % (Auto) 0.2 % 05/29/23 16:52 Baso % (Auto) 0.3 % 05/29/23 16:52 Neut # (Auto) 16.30 10^3/uL (1.8-7.7) H 05/29/23 16:52 Lymph # (Auto) 0.5 10^3/uL (0.8-4.8) L 05/29/23 16:52 Hubbard # (Auto) 0.7 10^3/uL (0.2-0.9) 05/29/23 16:52 Eos # (Auto) 0.0 10^3/uL (0.0-0.8) 05/29/23 16:52 Baso # (Auto) 0.1 10^3/uL (0.0-0.1) 05/29/23 16:52 Nucleated RBC % (auto) 0 % 05/29/23 16:52 Nucleated RBCs # 0.0 /100WBC 05/29/23 16:52 Sodium 134 mmol/L (136-145) L 05/29/23 16:52 Potassium 4.5 mmol/L (3.5-5.1) 05/29/23 16:52 Chloride 97 mmol/L (98-107) L 05/29/23 16:52 Carbon Dioxide 24 mmol/L (22-29) 05/29/23 16:52 Anion Gap 17.5 (5-19) 05/29/23 16:52 BUN 30 mg/dL (8-23) H 05/29/23 16:52 Creatinine 2.0 mg/dL (0.7-1.2) H 05/29/23 16:52 GFR Calculation Not Reportable 05/29/23 16:52 Glucose 219 mg/dL (65-115) H 05/29/23 16:52 Calculated Osmolality 291 mOsm/kg (285-295) 05/29/23 16:52 Lactic Acid 2.3 mmol/L (0.5-2.2) H 05/29/23 16:52 Calcium 10.0 mg/dL (8.5-10.5) 05/29/23 16:52 Total Bilirubin 0.6 mg/dL (0.15-1.2) 05/29/23 16:52 AST 14 U/L (0-40) 05/29/23 16:52 ALT 13 U/L (0-41) 05/29/23 16:52 Alkaline Phosphatase 79 U/L (40-130) 05/29/23 16:52 Total Protein 7.5 g/dL (6.6-8.7) 05/29/23 16:52 Albumin 4.4 g/dL (3.5-5.2) 05/29/23 16:52 Globulin 3.1 g/dL (1.3-4.6) 05/29/23 16:52 Urine Color Yellow (Yellow) 05/29/23 16:42 Urine Appearance Cloudy (CLEAR) A 05/29/23 16:42 Urine pH 5 (5-7) 05/29/23 16:42 Ur Specific [place] 1.010 (1.005-1.030) 05/29/23 16:42 Urine Protein Neg (Negative) 05/29/23 16:42 Urine Glucose (UA) 4+ (Normal) H 05/29/23 16:42 Urine Ketones Negative (Negative) 05/29/23 16:42 Urine Blood 3+ (Negative) H 05/29/23 16:42 Urine Nitrate Negative (Negative) 05/29/23 16:42 Urine Bilirubin Neg (Negative) 05/29/23 16:42 Urine Urobilinogen Norm mg/dL (Negative) 05/29/23 16:42 Ur Leukocyte Esterase Negative (Negative) 05/29/23 16:42 Urine RBC 50-80 /hpf (0-2) H 05/29/23 16:42 Urine WBC 0-4 /hpf (0-5) H 05/29/23 16:42 Ur Squamous Epith Cells 0-4 /hpf (0-5) H 05/29/23 16:42 Amorphous Sediment Not Reportable 05/29/23 16:42 Urine Bacteria 2+ /hpf (NONE) H 05/29/23 16:42 All radiology interpretation(s) finalized by discharge Discharge Plan Discharge Patient Disposition: Home Clinical Impression: Urinary retention, BPH loc w urin obs/LUTS Condition: Stable Prescriptions: New Cipro 500 mg tablet 500 mg PO BID Qty: 14 0RF No Action potassium chloride 10 mEq capsule, extended release 10 meq PO DAILY atorvastatin 40 mg tablet 40 mg PO DAILY Januvia 100 mg tablet 100 mg PO DAILY lisinopril 20 mg tablet 20 mg PO BID Hold Instructions: Resume on 11/21/22. tamsulosin [Flomax] 0.4 mg capsule 0.8 mg PO BID furosemide 40 mg tablet 40 mg PO BID psyllium husk [Metamucil] 0.4 gram capsule 0.8 g PO DAILY PRN (Reason: unknown) acetaminophen 325 mg tablet 650 mg PO Q6H PRN (Reason: Pain) methenamine hippurate 1 gram tablet 1 g PO BID Qty: 60 12RF Rx Instructions: 1 pill twice a day with 1 g vitamin C each dose dutasteride [Avodart] 0.5 mg capsule 0.5 mg PO DAILY amlodipine 10 mg tablet 10 mg PO DAILY Qty: 90 3RF sotalol 120 mg tablet 120 mg PO BID Qty: 180 3RF metoprolol tartrate 25 mg tablet 25 mg PO BID cholecalciferol (vitamin D3) [Vitamin D3] 25 mcg (1,000 unit) Tablet 25 mcg PO DAILY albuterol sulfate 2.5 mg /3 mL (0.083 %) solution for nebulization 2.5 mg inhalation TID PRN (Reason: Shortness Of Breath) tramadol 50 mg tablet 50 mg PO Q6H PRN (Reason: Pain) budesonide [Pulmicort] 0.5 mg/2 mL suspension for nebulization 0.5 mg inhalation BID PRN (Reason: copd) bisacodyl 5 mg Tablet 5 mg PO DAILY PRN (Reason: Constipation) ProAir RespiClick 90 mcg/actuation aerosol powdr breath activated 1 inh INHALATION TID PRN (Reason: Shortness Of Breath) Xarelto 10 mg tablet 20 mg PO DAILY Rx Instructions: for 14 days (rx filled 10/24/22)(pt also had a 20mg tab daily filled 08/13/22 90d/s) Discharge Orders: Discharge ED (Routine); Ordered 05/29/23 Ordered By: Delvin Shaikh Referrals: Hernan Rees DO [Primary Care Provider] - Patient Instructions: Opioid Safety, Pain Management Activity Restrictions/Additional Instructions: Thank you for choosing [facility] [facility] for your healthcare needs today. Please realize this is an emergency room and that we are providing you with a medical screening exam and this may not be complete and all inclusive of all the testing and or work up that you may need to determine your ailment or severity of your illness. It is very important that you follow up as instructed or that you return to the Emergency Department should you have concerns or if your condition changes or worsens in any way. He had blood in your urine when you read the emergency room placed catheter and irrigated out to stop the bleeding. He also had 700 mL in your bladder suspect the self-catheterization is not completely relieving the urinary retention. You should start on Cipro 500 twice daily for 7 days follow-up with urologist next week and they can review getting with Mims catheter out Coding Level of Care Code ED Deck Builder for Lee Bangura
--- NOTE | 2023-05-29 17:04 | CTR_ITS ---
PROCEDURE INFORMATION: Exam: CT Abdomen And Pelvis Without Contrast Exam date and time: 05/29/2023 5:29 PM Age: 77 years old Clinical indication: Abdominal pain; Generalized; Additional info: Lt flank pain, hematuria, fall today as well TECHNIQUE: Imaging protocol: Computed tomography of the abdomen and pelvis without contrast. Radiation optimization: All CT scans at this facility use at least one of these dose optimization techniques: automated exposure control; mA and/or kV adjustment per patient size (includes targeted exams where dose is matched to clinical indication); or iterative reconstruction. REPORTING DATA: Count of CT and Cardiac NM exams in prior 12 months: This patient has received 3 known CTs and 0 known cardiac nuclear medicine studies in the 12 months prior to the current study. COMPARISON: [place] [id number] 11/10/2022 8:57 PM RADIATION DOSE METRICS: Total DLP (mGy-cm): 1158.03 FINDINGS: Liver: Normal. No mass. Gallbladder and bile ducts: Normal. No calcified stones. No ductal dilation. Pancreas: Normal. No ductal dilation. Spleen: Normal. No splenomegaly. Adrenal glands: Normal. No mass. Kidneys and ureters: There is a 3.3 cm cyst in the lateral cortex of the left kidney with peripheral calcifications. There is a mildly complex 2.4 cm cyst in the inferior pole of the right kidney.. Mild bilateral perinephric fat stranding. No hydronephrosis or hydroureter. Stomach and bowel: Unremarkable. No obstruction. No mucosal thickening. Appendix: The appendix is not visualized. Intraperitoneal space: Unremarkable. No free air. No significant fluid collection. Vasculature: Unremarkable. No abdominal aortic aneurysm. Lymph nodes: Unremarkable. No enlarged lymph nodes. Urinary bladder: There is a Mims catheter in the bladder. The bladder is decompressed. Reproductive: Unremarkable as visualized. Bones/joints: Unremarkable. No acute fracture. Soft tissues: Unremarkable. CT/CT kidney stone [id number] IMPRESSION: 1. There is a 3.3 cm cyst in the lateral cortex of the left kidney with peripheral calcifications. There is a mildly complex 2.4 cm cyst in the inferior pole of the right kidney. These are incompletely assessed on this examination and a three-phase renal CT or renal MRI may be of benefit to exclude an underlying lesion. 2. No hydronephrosis or renal calculus. No hydroureter or stone in the bladder. COMMENTS: Consistent with the [employer]'s Incidental Findings Committee white paper (J Am Jeanna Radiol 2018): Any incidental renal lesion less than 1 cm or classified as too small to characterize, or any incidental cystic renal lesion characterized as simple-appearing, is likely benign. No follow-up imaging is recommended for these lesions per consensus recommendations based on imaging criteria.
[2023-05-29 17:05] LABS: Basophils # 0.1 10^3/uL (0.0-0.1); Basophils % 0.3 %; Eosinophils % 0.2 %; Hematocrit 40.4 % (37-53); Lymphocytes # 0.5 10^3/uL (0.8-4.8); Lymphocytes % 2.6 %; Mean Corpuscular HGB Conc 32.4 g/dL (30-55); Mean Corpuscular Hemoglobin 31.6 pg (27-33); Mean Corpuscular Volume 97.6 fl (82-101); Mean Platelet Volume 9.4 fL (7.4-10.4); Monocytes # 0.7 10^3/uL (0.2-0.9); Monocytes % 3.9 %; Neutrophils % 92.3 %; Nucleated Red Blood Cells % 0 %; Platelet Count 221 10^3/cmm (157-399); Red Blood Count 4.14 10^6/uL (3.85-5.65); Red Cell Distribution Width 14.5 % (12.1-15.1); White Blood Count 17.66 10^3/uL (3.29-11.43)
[2023-05-29 17:21] LABS: Lactic Sepsis W/Reflex 2.3 mmol/L (0.5-2.2)
[2023-05-29 17:22] LABS: Alanine Aminotransferase 13 U/L (0-41); Albumin Level 4.4 g/dL (3.5-5.2); Alkaline Phosphatase 79 U/L (40-130); Anion Gap 17.5 (5-19); Aspartate Amino Transferase 14 U/L (0-40); Blood Urea Nitrogen 30 mg/dL (8-23); Carbon Dioxide 24 mmol/L (22-29); Chloride 97 mmol/L (98-107); Globulin 3.1 g/dL (1.3-4.6); Glucose 219 mg/dL (65-115); Osmolality Calculated 291 mOsm/kg (285-295); Potassium 4.5 mmol/L (3.5-5.1); Sodium 134 mmol/L (136-145); Total Bilirubin 0.6 mg/dL (0.15-1.2); Total Protein 7.5 g/dL (6.6-8.7)
[2023-05-29 17:33] LABS: Ketones Urine Negative (Negative); Protein Urine Neg (Negative); Urine Appearance Cloudy (CLEAR); Urine Color Yellow (Yellow); pH Urine 5 (5-7)
[2023-05-29 17:34] LABS: Add Urine Microscopic? YES; Bilirubin Urine Neg (Negative); Blood Urine 3+ (Negative); Glucose Urine UA 4+ (Normal); Leukocyte Esterase Urine Negative (Negative); Nitrate Urine Negative (Negative); Urobilinogen Urine Norm (Negative)
[2023-05-29 17:35] LABS: Add Urine Culture? Yes; Bacteria Urine 2+ /hpf; RBC Urine 50-80 /hpf (0-2); Squamous Epithelial Cell Urine 0-4 /hpf (0-5); WBC Urine 0-4 /hpf (0-5)
--- NOTE | 2023-05-29 17:36 | XRR_ITS ---
PROCEDURE INFORMATION: Exam: XR Left Knee Exam date and time: 05/29/2023 5:38 PM Age: 77 years old Clinical indication: Injury or trauma; Other: Lt knee pain; Prior surgery; Surgery date: 6+ months; Surgery type: Left knee replacement 10/2022; Patient HX: Left knee pain post fall TECHNIQUE: Imaging protocol: Radiologic exam of the left knee. Views: 1 or 2 views. COMPARISON: No relevant prior studies available. FINDINGS: Bones/joints: Total left knee arthroplasty without evidence of hardware failure or loosening. Soft tissues: Normal. XR/XR knee LT 1-2V [id number] IMPRESSION: Total left knee arthroplasty without evidence of hardware failure or loosening.
[2023-05-29 18:48] LABS: Reflex Lactate Order REFLEX LACTIC ORDERD
== END 2023-05-29 18:42 | disposition home or self-care (01) ==
PROVIDERS: Emergency Provider Family Medicine; PCP Internal Medicine
DX: N40.1 Benign prostatic hyperplasia with lower urinary tract symptoms (principal); R33.8 Other retention of urine; N13.8 Other obstructive and reflux uropathy; Z96.652 Presence of left artificial knee joint; Z95.1 Presence of aortocoronary bypass graft; Z79.01 Long term (current) use of anticoagulants; I25.10 Atherosclerotic heart disease of native coronary artery without angina pectoris; E11.9 Type 2 diabetes mellitus without complications; E78.5 Hyperlipidemia, unspecified; I10 Essential (primary) hypertension; I25.5 Ischemic cardiomyopathy
CPT/HCPCS: 36415; 51702; 73502; 73560; 74176; 80053; 81001; 83605; 85025; 87040; 87077; 87086; 87186; 99285

== ENCOUNTER 2023-06-06 09:23 | Outpatient (RCR) | payer SELFPAY | END 2023-07-06 23:59 | disposition home or self-care (01) | LOC: CR 09:23 | PROVIDERS: PCP Internal Medicine; Referring Provider Internal Medicine; Visit Provider Internal Medicine | DX: I25.10 Atherosclerotic heart disease of native coronary artery without angina pectoris ==

== ENCOUNTER → 2023-07-01 12:19 | Outpatient (BNVA) | payer MEDICARE, OTHER, SELFPAY | PROVIDERS: PCP Internal Medicine; Visit Provider Internal Medicine | DX: I25.10 Atherosclerotic heart disease of native coronary artery without angina pectoris (principal); I48.91 Unspecified atrial fibrillation; G47.30 Sleep apnea, unspecified; I10 Essential (primary) hypertension; E66.9 Obesity, unspecified; Z68.35 Body mass index [BMI] 35.0-35.9, adult; I25.5 Ischemic cardiomyopathy; E78.5 Hyperlipidemia, unspecified; E11.9 Type 2 diabetes mellitus without complications; Z95.1 Presence of aortocoronary bypass graft; I73.9 Peripheral vascular disease, unspecified; Z79.01 Long term (current) use of anticoagulants | CPT/HCPCS: 99214 ==

== ENCOUNTER 2023-07-08 11:34 | Outpatient (RCR) | payer SELFPAY | END 2023-08-06 23:59 | disposition home or self-care (01) | LOC: CR 11:34 | PROVIDERS: PCP Internal Medicine; Referring Provider Internal Medicine; Visit Provider Internal Medicine | DX: I25.10 Atherosclerotic heart disease of native coronary artery without angina pectoris ==

== ENCOUNTER 2023-08-07 14:20 | Outpatient (RCR) | payer SELFPAY | END 2023-09-04 23:59 | disposition home or self-care (01) | LOC: CR 14:20 | PROVIDERS: PCP Internal Medicine; Referring Provider Internal Medicine; Visit Provider Internal Medicine | DX: I25.10 Atherosclerotic heart disease of native coronary artery without angina pectoris ==

== ENCOUNTER → 2023-09-04 08:36 | Outpatient (BNVA) | payer MEDICARE, OTHER, SELFPAY | PROVIDERS: PCP Internal Medicine; Visit Provider Nurse Practitioner Family | DX: S60.941A Unspecified superficial injury of left index finger, initial encounter (principal); X58.XXXA Exposure to other specified factors, initial encounter; L72.0 Epidermal cyst; L57.8 Other skin changes due to chronic exposure to nonionizing radiation; L81.4 Other melanin hyperpigmentation; D22.5 Melanocytic nevi of trunk; L57.0 Actinic keratosis | CPT/HCPCS: 17000; 99214 ==

== ENCOUNTER 2023-09-05 15:18 | Outpatient (RCR) | payer SELFPAY | END 2023-10-05 23:59 | disposition home or self-care (01) | LOC: CR 15:18 | PROVIDERS: PCP Internal Medicine; Referring Provider Internal Medicine; Visit Provider Internal Medicine | DX: I25.10 Atherosclerotic heart disease of native coronary artery without angina pectoris ==

== ENCOUNTER → 2023-12-10 15:14 | Outpatient (BNVA) | payer MEDICARE, OTHER, SELFPAY | PROVIDERS: PCP Internal Medicine; Visit Provider Internal Medicine | DX: I25.10 Atherosclerotic heart disease of native coronary artery without angina pectoris (principal); I48.91 Unspecified atrial fibrillation; G47.30 Sleep apnea, unspecified; I10 Essential (primary) hypertension; E66.9 Obesity, unspecified; Z68.36 Body mass index [BMI] 36.0-36.9, adult; I25.5 Ischemic cardiomyopathy; E78.5 Hyperlipidemia, unspecified; E11.9 Type 2 diabetes mellitus without complications; Z95.1 Presence of aortocoronary bypass graft; I73.9 Peripheral vascular disease, unspecified; Z79.84 Long term (current) use of oral hypoglycemic drugs; Z79.01 Long term (current) use of anticoagulants | CPT/HCPCS: 99214 ==

== ENCOUNTER 2024-01-05 13:35 | Outpatient (RCR) | payer SELFPAY | END 2024-02-04 23:59 | disposition home or self-care (01) | LOC: CR 13:35 | PROVIDERS: PCP Internal Medicine; Referring Provider Internal Medicine; Visit Provider Internal Medicine | DX: I25.10 Atherosclerotic heart disease of native coronary artery without angina pectoris (principal) ==

== ENCOUNTER 2024-01-12 08:00 | Outpatient (CLI) | payer MEDICARE, OTHER, SELFPAY ==
--- NOTE | 2024-01-12 | ECG_ITS ---
[facility] Test Date: 2024-01-12 Pat Name: Nicolas Romero Department: Room: Gender: Male No Experience: : 1945 Requested By: Alek Parker Order Number: [id number] Reading MD: Interpretive Statements Lung unchanged pre/post procedure; Intraprocedure shortess of breath; Symptoms resoled by discharge [email or web address]
[2024-01-12 08:13] VITALS: BMI 34.4
--- NOTE | 2024-01-12 08:14 | NMCV_ITS ---
NM martha perf SPECT r/s* [id number] Nicolas Romero Age: 78 Gender: M : 1945 Exam Date: 01/12/2024 08:14 Ordering Phys: Alek Parker M.D ([email or web address]) Technologist: JUAN Abad Exam Location: [facility] Indications: CP, SOB STRESS TEST Please [facility] IMAGE PROTOCOL Rest/Stress 1 Lexiscan Day Radiopharmaceutical Dose (mCi) Administration Site Administered by Rest: Tc-99m 10.8 IV JUAN Abda Sestamibi Stress:Tc-99m 33.0 IV JUAN Abad Sestamibi Rest: 12-Jan-2024 60 Discovery 630 Stress: 12-Jan-2024 30 Discovery 630 0.4mg Lexiscan. Images obtained in supine and prone position. SPECT RESULTS Technical Quality: Good Raw Data Analysis: Normal Image Corrections: No attenuation or motion correction applied Summed Stress Score: 14 Summed Rest Score: 9 Summed Difference Score: 5 PERFUSION FINDINGS There is large area of partially reversible perfusion defect noted in the inferior and inferolateral valencia. This is consistent with large area of prior infarct with medium sized area of marissa-infarct seen in the inferior and inferolateral valencia. FUNCTIONAL RESULTS (calculated via Gated SPECT) Stress Image LV EF (%): 63 Stress EDV (mL):131 TID: 1.24 Stress ESV (mL):48 FUNCTIONAL FINDINGS: LV systolic function is normal. TID ratio is elevated. IMPRESSIONS 1. Abnormal myocardial perfusion imaging with large areas of prior infarct with medium sized area of marissa-infarct ischemia in inferior and inferolateral valencia 2. LV systolic function is normal 3. TID ratio is elevated. This may represent multivessel coronary artery disease vs subendocardial ischemia. Alek Parker MD (Electronically Signed) Final Date: 15 January 2024 08:46 S
[2024-01-12] MEDS: regadenoson 0.4 Mg/5 ml Syringe IVP (09:32)
[2024-01-12 09:38] VITALS: BP 112/62; PULSE 64
== END 2024-01-12 08:01 | disposition home or self-care (01) ==
PROVIDERS: Family Provider Family Medicine; PCP Internal Medicine; Visit Provider Internal Medicine
DX: R06.02 Shortness of breath (principal); R94.39 Abnormal result of other cardiovascular function study
CPT/HCPCS: 36415; 78452; 93017; 96374; A9500; J2785

== ENCOUNTER 2024-04-06 13:44 | Outpatient (RCR) | payer SELFPAY | END 2024-05-06 23:59 | disposition home or self-care (01) | LOC: CR 13:44 | PROVIDERS: Family Provider Family Medicine; PCP Internal Medicine; Referring Provider Internal Medicine; Visit Provider Internal Medicine | DX: I25.10 Atherosclerotic heart disease of native coronary artery without angina pectoris (principal) ==

== ENCOUNTER 2024-05-07 14:06 | Outpatient (RCR) | payer SELFPAY | END 2024-06-05 23:59 | disposition home or self-care (01) | LOC: CR 14:06 | PROVIDERS: Family Provider Family Medicine; PCP Internal Medicine; Referring Provider Internal Medicine; Visit Provider Internal Medicine | DX: I25.10 Atherosclerotic heart disease of native coronary artery without angina pectoris (principal) ==

== ENCOUNTER 2024-06-09 07:52 | Outpatient (RCR) | payer SELFPAY | END 2024-07-06 23:59 | disposition home or self-care (01) | LOC: CR 07:52 | PROVIDERS: Family Provider Family Medicine; PCP Internal Medicine; Referring Provider Internal Medicine; Visit Provider Internal Medicine | DX: I25.10 Atherosclerotic heart disease of native coronary artery without angina pectoris (principal) ==

== ENCOUNTER 2024-07-07 10:41 | Outpatient (RCR) | payer SELFPAY | END 2024-08-06 23:59 | disposition home or self-care (01) | LOC: CR 10:41 | PROVIDERS: Family Provider Family Medicine; PCP Internal Medicine; Referring Provider Internal Medicine; Visit Provider Internal Medicine | DX: I25.10 Atherosclerotic heart disease of native coronary artery without angina pectoris (principal) ==

== ENCOUNTER 2024-08-09 15:47 | Outpatient (RCR) | payer SELFPAY | END 2024-09-03 23:59 | disposition home or self-care (01) | LOC: CR 15:47 | PROVIDERS: Family Provider Family Medicine; PCP Internal Medicine; Referring Provider Internal Medicine; Visit Provider Internal Medicine | DX: I25.10 Atherosclerotic heart disease of native coronary artery without angina pectoris (principal) ==

== ENCOUNTER 2024-08-31 06:56 | Outpatient (CLI) | payer OTHER, SELFPAY ==
[2024-08-31] MEDS: albuterol 2.5 mg/3 mL Neb INHALATION (07:41)
== END 2024-08-31 06:57 | disposition home or self-care (01) ==
LOC: RT 06:57
PROVIDERS: PCP Family Medicine; Visit Provider Family Medicine
DX: R06.00 Dyspnea, unspecified (principal); R93.89 Abnormal findings on diagnostic imaging of other specified body structures
CPT/HCPCS: 94060; 94726; 94729; J7613

== ENCOUNTER → 2024-09-06 08:49 | Outpatient (BNVA) | payer MEDICARE, OTHER, SELFPAY | PROVIDERS: Family Provider Family Medicine; PCP Family Medicine; Visit Provider Nurse Practitioner Family | DX: S50.912A Unspecified superficial injury of left forearm, initial encounter (principal); X58.XXXA Exposure to other specified factors, initial encounter; D22.39 Melanocytic nevi of other parts of face; L57.8 Other skin changes due to chronic exposure to nonionizing radiation; L81.4 Other melanin hyperpigmentation; L57.0 Actinic keratosis | CPT/HCPCS: 17000; 99214 ==

== ENCOUNTER 2024-09-07 12:52 | Outpatient (RCR) | payer SELFPAY | END 2024-10-04 23:59 | disposition home or self-care (01) | LOC: CR 12:52 | PROVIDERS: Family Provider Family Medicine; PCP Family Medicine; Referring Provider Internal Medicine; Visit Provider Internal Medicine | DX: I25.10 Atherosclerotic heart disease of native coronary artery without angina pectoris (principal) ==

== ENCOUNTER 2024-09-27 13:46 | Outpatient (CLI) | payer MEDICARE, OTHER, SELFPAY ==
--- NOTE | 2024-09-27 13:49 | CTR_ITS ---
PROCEDURE INFORMATION: Exam: CTA Chest With Contrast Exam date and time: 09/27/2024 2:19 PM Age: 78 years old Clinical indication: Abnormal findings; Abnormal diagnostic tests; Elevated d-dimer; Prior surgery; Surgery date: 6+ months; Surgery type: Heart; Shortness of breath, getting worse; Additional info: Decreased diffusion capacity of lung TECHNIQUE: Imaging protocol: Computed tomographic angiography of the chest with contrast. Exam focused on the arteries. 3D rendering (Not supervised by radiologist): MIP and/or 3D reconstructed images were created by the technologist. Radiation optimization: All CT scans at this facility use at least one of these dose optimization techniques: automated exposure control; mA and/or kV adjustment per patient size (includes targeted exams where dose is matched to clinical indication); or iterative reconstruction. Contrast material: OMNIPAQUE 350; Contrast volume: 100 ml; Contrast route: INTRAVENOUS (IV); COMPARISON: [facility] [id number] 11/10/2022 8:57 PM RADIATION DOSE METRICS: Total DLP (mGy-cm): 545.98 FINDINGS: Pulmonary arteries: Normal. No pulmonary emboli. Aorta: Unremarkable. No aortic aneurysm. No aortic dissection. Lungs: Unremarkable. No consolidation. No masses. Pleural spaces: Unremarkable. No pneumothorax. No pleural effusion. Heart: Mild cardiomegaly is noted. There is evidence of previous heart surgery with sternal sutures present. Lymph nodes: Unremarkable. No enlarged lymph nodes. Bones/joints: See Heart finding. Soft tissues: Unremarkable. CT/CT angio chest [facility] [id number] IMPRESSION: Stable cardiomegaly
[2024-09-27] MEDS: iohexol 350 mg/mL 500 mL Btl (per mL) IV (14:45)
== END 2024-09-27 13:47 | disposition home or self-care (01) ==
PROVIDERS: Family Provider Family Medicine; PCP Family Medicine; Visit Provider Family Medicine
DX: R94.2 Abnormal results of pulmonary function studies (principal); I51.7 Cardiomegaly; Z98.890 Other specified postprocedural states
CPT/HCPCS: 71275

== ENCOUNTER 2024-10-01 20:12 | Emergency (ER) | payer OTHER, MEDICARE, SELFPAY ==
--- NOTE | 2024-10-01 20:14 | XRR_ITS ---
PROCEDURE INFORMATION: Exam: XR Left Wrist Exam date and time: 10/01/2024 8:34 PM Age: 78 years old Clinical indication: Left; Lt hand/wrist pain post fall; Additional info: Trauma TECHNIQUE: Imaging protocol: Radiologic exam of the left wrist. Views: 3 or more views. COMPARISON: CR XR hand LT min 3V* [id number] 08/28/2024 9:30 AM FINDINGS: Bones/joints: Arthritis involving the articulation of the distal scaphoid with the multangular bones. Chondrocalcinosis. Soft tissues: Normal. Vasculature: Mild calcified peripheral vascular disease. Other findings: Faintly visualized 6 mm rounded calcification posterior to the wrist most consistent with loose body versus other dystrophic calcification. XR/XR wrist LT min 3V* [id number] IMPRESSION: 1. Chondrocalcinosis. 2. No acute findings. 3. If pain persists, repeat images and/or MRI is recommended in 7-10 days to rule out occult pathology if clinically indicated.
--- NOTE | 2024-10-01 20:14 | XRR_ITS ---
PROCEDURE INFORMATION: Exam: XR Left Hand Exam date and time: 10/01/2024 8:34 PM Age: 78 years old Clinical indication: Left; Lt hand/wrist pain post fall TECHNIQUE: Imaging protocol: Radiologic exam of the left hand. Views: 3 or more views. COMPARISON: CR XR hand LT min 3V* [id number] 08/28/2024 9:30 AM FINDINGS: Bones/joints: Arthritis involving the articulation of the distal scaphoid with the multangular bones. Thumb interphalangeal arthritis. 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 Soft tissues: Normal. Other findings: Faintly visualized 6 mm rounded calcification posterior to the wrist most consistent with loose body versus other dystrophic calcification. XR/XR hand LT min 3V* [id number] IMPRESSION: No acute findings.
[2024-10-01 20:27] VITALS: BP 105/70; PULSE 100; RESP 18; TEMP 36.6; O2SAT 96; BMI 33.7
--- NOTE | 2024-10-01 20:52 | W.ED.EXTPRO ---
HPI - Extremity Problem General: Chief complaint: Extremity Injury, Upper Stated complaint: Fell yesterday on L hand and wrist Painful Time Seen by Provider: 10/01/24 20:47 History of Present Illness: Presents to the ER with complaints of a fall yesterday and left wrist and hand pain that is only getting worse. Patient believes he sprained it but is unsure. Patient did not take any pain medicine at home only baclofen muscle relaxer which did not work. Patient does not complain of any other injuries at this time. Related Data Home Medications ?Medication ?Instructions ?Recorded ?Confirmed atorvastatin 40 mg tablet 40 mg PO DAILY 09/07/19 02/18/24 potassium chloride 10 mEq 10 meq PO DAILY 09/07/19 02/18/24 capsule,extended release sitagliptin phosphate 100 mg 100 mg PO DAILY 09/07/19 02/18/24 tablet (Januvia) lisinopril 20 mg tablet 20 mg PO BID 11/10/19 02/18/24 Held on 11/14/22. Instructions: Resume on 11/21/22. acetaminophen 325 mg tablet 650 mg PO Q6H PRN Pain 11/05/22 02/18/24 psyllium husk 0.4 gram capsule 0.8 g PO DAILY PRN unknown 11/05/22 02/18/24 (Metamucil) tamsulosin 0.4 mg capsule (Flomax) 0.8 mg PO BID 11/05/22 02/18/24 bisacodyl 5 mg tablet 5 mg PO DAILY PRN Constipation 11/11/22 02/18/24 budesonide 0.5 mg/2 mL suspension 0.5 mg inhalation BID PRN copd 11/11/22 02/18/24 for nebulization (Pulmicort) cholecalciferol (vitamin D3) 25 25 mcg PO DAILY 11/11/22 02/18/24 mcg (1,000 unit) tablet (Vitamin D3) metoprolol tartrate 25 mg tablet 25 mg PO BID 11/11/22 02/18/24 dutasteride 0.5 mg capsule 0.5 mg PO DAILY 12/24/22 02/18/24 (Avodart) rivaroxaban 10 mg tablet (Xarelto) 20 mg PO DAILY 12/24/22 02/18/24 furosemide 40 mg tablet 40 mg PO DAILY 07/01/23 02/18/24 empagliflozin 25 mg tablet 25 mg PO DAILY 12/10/23 02/18/24 Previous Rx's ?Medication ?Instructions ?Recorded amlodipine 10 mg tablet 10 mg PO DAILY #90 tabs 12/16/23 sotalol 120 mg tablet 120 mg PO BID #180 tabs 01/09/24 tramadol 50 mg tablet 50 mg PO Q8H PRN pain #7 tabs 10/01/24 Allergies Allergy/AdvReac Type Severity Reaction Status Date / Time No Known Allergies Allergy Verified 10/01/24 20:30 Review of Systems General: Reports: 10 or more systems reviewed and unremarkable except in HPI and below PFSH ED PFSH: Medical History Ischemic cardiomyopathy Essential hypertension Prostatitis Acute urinary retention Acute cystitis Fever Fever, unknown origin Atrial fibrillation with rapid ventricular response Urinary retention Morbid obesity Peripheral arterial disease Dyslipidemia Sleep apnea Obesity Atrial fibrillation CAD (coronary artery disease) Anticoagulation adequate with anticoagulant therapy Xarelto Diabetes Elevated PSA BPH loc w urin obs/LUTS Surgical History Status post left knee replacement S/P decompression of ulnar nerve at elbow History of carpal tunnel surgery of right wrist S/P appendectomy S/P CABG (coronary artery bypass graft) H/O knee surgery S/P cataract surgery S/P hernia repair Family History Mother CAD (coronary artery disease) Stroke Father CAD (coronary artery disease) Family/Other Diabetes Hypertension Social History Smoking and tobacco/nicotine status: never used tobacco/nicotine Alcohol intake: current Alcohol intake frequency: 0-2 Drinks per Day Alcohol type: wine Substance/Drug Use: never Adopted: No Caregiver/support person: No Marital status: / Current occupational status: retired Current gender identity: Male Physical Exam Const: COMMON NORMALS: no acute distress, average body habitus, patient oriented x3, no limitations, healthy appearing, alert and well nourished HENMT: COMMON NORMALS: normocephalic, atraumatic, hearing grossly normal bilaterally, external ears normal, Normal external nose present, moist oral mucous membranes and oropharynx normal HEAD & SCALP: normocephalic and atraumatic NOSE: Normal external nose present EXTERNAL EAR: Yes external ears normal Neck/C-Spine: COMMON NORMALS: full ROM, no lymphadenopathy, supple, no meningeal signs and no JVD Chest: COMMONS NORMALS: normal inspection of the chest and normal palpation of entire chest wall Resp: COMMON NORMALS: normal respiratory effort, No retractions, No use of accessory muscles and clear to auscultation bilaterally AUSCULTATION: clear to auscultation bilaterally Cardio: COMMON NORMALS: no JVD, regular rate, regular rhythm, S1 normal heart sound present, S2 normal heart sound present, No gallops present (Cardio), No clicks present (Cardio), No murmurs present (Cardio) and No rub (Cardio) RATE: regular rate RHYTHM: regular rhythm HEART SOUNDS: S1 normal heart sound present and S2 normal heart sound present GI: COMMON NORMALS: Normal to inspection, nondistended, normoactive bowel sounds present, Soft to palpation, non-tender, No hepatosplenomegaly present and no masses PALPATION: Yes Soft to palpation and Yes No hepatosplenomegaly present Extremity: NARRATIVE EXTREMITY EXAM: Minimal tenderness with palpation over metacarpal/wrist area no obvious crepitus deformity swelling full range of motion. Neuro: COMMON NORMALS: patient oriented x3 SENSORIUM/ORIENTATION: Yes alert MENINGEAL SIGNS: Yes no meningeal signs Course Vital Signs: Vital signs: Vital Signs Temperature 97.9 F 10/01/24 20:27 Pulse Rate 105 H 10/01/24 21:46 Respiratory Rate 18 10/01/24 20:27 Blood Pressure 104/60 10/01/24 21:46 Pulse Oximetry 96 10/01/24 21:46 Oxygen Delivery Me thod Room Air 10/01/24 21:46 MDM - Extremity (Nontraumatic) Medical Decision Making X-rays of the hand and wrist were Is essentially negative, patient will be instructed to follow-up with PCP in approximately 7 days. Medical Records I reviewed the patient's medical records. Lab Data I reviewed the patient's lab results. Radiology Impressions Hand X-Ray 10/01/24 20:14 IMPRESSION: No acute findings. Wrist X-Ray 10/01/24 20:14 IMPRESSION: 1. Chondrocalcinosis. 2. No acute findings. 3. If pain persists, repeat images and/or MRI is recommended in 7-10 days to rule out occult pathology if clinically indicated. All radiology interpretation(s) finalized by discharge Discharge Plan Discharge Patient Disposition: Home Clinical Impression: Fall, Hand pain, left, Acute pain of left wrist Condition: Stable Prescriptions: New tramadol 50 mg tablet 50 mg PO Q8H PRN (Reason: pain) Qty: 7 0RF No Action potassium chloride 10 mEq capsule, extended release 10 meq PO DAILY atorvastatin 40 mg tablet 40 mg PO DAILY Januvia 100 mg tablet 100 mg PO DAILY lisinopril 20 mg tablet 20 mg PO BID tamsulosin [Flomax] 0.4 mg capsule 0.8 mg PO BID furosemide 40 mg tablet 40 mg PO DAILY psyllium husk [Metamucil] 0.4 gram capsule 0.8 g PO DAILY PRN (Reason: unknown) acetaminophen 325 mg tablet 650 mg PO Q6H PRN (Reason: Pain) dutasteride [Avodart] 0.5 mg capsule 0.5 mg PO DAILY empagliflozin 25 mg tablet 25 mg PO DAILY amlodipine 10 mg tablet 10 mg PO DAILY Qty: 90 3RF sotalol 120 mg tablet 120 mg PO BID Qty: 180 3RF metoprolol tartrate 25 mg tablet 25 mg PO BID cholecalciferol (vitamin D3) [Vitamin D3] 25 mcg (1,000 unit) Tablet 25 mcg PO DAILY budesonide [Pulmicort] 0.5 mg/2 mL suspension for nebulization 0.5 mg inhalation BID PRN (Reason: copd) bisacodyl 5 mg Tablet 5 mg PO DAILY PRN (Reason: Constipation) Xarelto 10 mg tablet 20 mg PO DAILY Rx Instructions: for 14 days (rx filled 10/24/22)(pt also had a 20mg tab daily filled 08/13/22 90d/s) Discharge Orders: Discharge ED (Routine); Ordered 10/01/24 Ordered By: Franky Silva Referrals: Honey Owens MD [Family Provider] - 1 week Elias Loera MD [Primary Care Provider] - Patient Instructions: Opioid Safety, Pain Management Activity Restrictions/Additional Instructions: Activity restrictions/additional instructions: Thank you for choosing [facility] for your healthcare needs today. Please realize that you were seen in the emergency department and that we are providing you with an emergency medical screening exam and this may not be a complete and all exclusive of all testing and/or medical workup we may need to determine your element or severity of your illness. It is very important that you follow-up as instructed with your primary care provider or specialist for the additional evaluation and to discuss your medical treatment plan. You may return to the emergency department should you have concerns or if your condition changes or worsens in any way. Print Language: Dominican Coding Level of Care Code ED Shoe Trimmer for Lee Bangura
[2024-10-01] MEDS: ketorolac 60 mg/2 mL INJ IM (21:01)
[2024-10-01 21:46] VITALS: BP 104/60; PULSE 105; O2SAT 96
[2024-10-01 22:26] VITALS: BP 99/66; PULSE 103; O2SAT 95
== END 2024-10-01 22:28 | disposition home or self-care (01) ==
PROVIDERS: Emergency Provider Emergency Medicine; Family Provider Family Medicine; PCP Family Medicine
DX: M79.642 Pain in left hand (principal); M25.532 Pain in left wrist; Z95.1 Presence of aortocoronary bypass graft; I25.10 Atherosclerotic heart disease of native coronary artery without angina pectoris; E11.9 Type 2 diabetes mellitus without complications; E78.5 Hyperlipidemia, unspecified
CPT/HCPCS: 73110; 73130; 96372; 99284; J1885

== ENCOUNTER 2024-10-05 15:11 | Outpatient (RCR) | payer SELFPAY | END 2024-11-03 23:59 | disposition home or self-care (01) | LOC: CR 15:11 | PROVIDERS: Family Provider Family Medicine; PCP Family Medicine; Referring Provider Internal Medicine; Visit Provider Internal Medicine | DX: I25.10 Atherosclerotic heart disease of native coronary artery without angina pectoris (principal) ==

== ENCOUNTER 2024-11-04 12:56 | Outpatient (RCR) | payer SELFPAY | END 2024-12-04 23:59 | disposition home or self-care (01) | LOC: CR 12:56 | PROVIDERS: Family Provider Family Medicine; PCP Family Medicine; Referring Provider Internal Medicine; Visit Provider Internal Medicine | DX: I25.10 Atherosclerotic heart disease of native coronary artery without angina pectoris (principal) ==

== ENCOUNTER 2024-11-08 20:00 | Outpatient (CLI) | payer MEDICARE, SELFPAY | END 2024-11-08 20:01 | disposition home or self-care (01) | LOC: SLEEP 20:59 | PROVIDERS: Family Provider Family Medicine; PCP Family Medicine; Visit Provider Family Medicine | DX: G47.33 Obstructive sleep apnea (adult) (pediatric) (principal) | CPT/HCPCS: 95811 ==

== ENCOUNTER → 2024-11-09 13:46 | Outpatient (BNVA) | payer MEDICARE, SELFPAY | PROVIDERS: Family Provider Family Medicine; PCP Family Medicine; Visit Provider Podiatrist Foot & Ankle Surgery | DX: E11.69 Type 2 diabetes mellitus with other specified complication (principal); L60.3 Nail dystrophy; I73.9 Peripheral vascular disease, unspecified | CPT/HCPCS: 11721; 99203 ==

== ENCOUNTER 2024-12-08 08:31 | Outpatient (RCR) | payer SELFPAY | END 2025-01-03 23:59 | disposition home or self-care (01) | LOC: CR 08:31 | PROVIDERS: Family Provider Family Medicine; PCP Family Medicine; Referring Provider Internal Medicine; Visit Provider Internal Medicine | DX: I25.10 Atherosclerotic heart disease of native coronary artery without angina pectoris (principal) ==

== ENCOUNTER 2025-01-04 11:05 | Outpatient (RCR) | payer SELFPAY | END 2025-02-03 23:59 | disposition home or self-care (01) | LOC: CR 11:05 | PROVIDERS: Family Provider Family Medicine; PCP Family Medicine; Referring Provider Internal Medicine; Visit Provider Internal Medicine | DX: I25.10 Atherosclerotic heart disease of native coronary artery without angina pectoris (principal) ==

== ENCOUNTER → 2025-01-11 13:16 | Outpatient (BNVA) | payer MEDICARE, OTHER, SELFPAY | PROVIDERS: PCP Family Medicine; Visit Provider Podiatrist Foot & Ankle Surgery | DX: E11.69 Type 2 diabetes mellitus with other specified complication (principal); L60.3 Nail dystrophy; I73.9 Peripheral vascular disease, unspecified | CPT/HCPCS: 11721 ==

== ENCOUNTER → 2025-01-24 10:40 | Outpatient (BNVA) | payer MEDICARE, OTHER, SELFPAY | PROVIDERS: PCP Family Medicine; Visit Provider Nurse Practitioner Family | DX: L57.0 Actinic keratosis (principal); L81.4 Other melanin hyperpigmentation; L57.8 Other skin changes due to chronic exposure to nonionizing radiation; D22.0 Melanocytic nevi of lip; L82.1 Other seborrheic keratosis | CPT/HCPCS: 99213 ==

== ENCOUNTER → 2025-02-15 09:47 | Outpatient (BNVA) | payer MEDICARE, OTHER, SELFPAY | PROVIDERS: Family Provider Family Medicine; PCP Family Medicine; Visit Provider Podiatrist Foot & Ankle Surgery | DX: E11.69 Type 2 diabetes mellitus with other specified complication (principal); L60.3 Nail dystrophy; I73.9 Peripheral vascular disease, unspecified; L60.0 Ingrowing nail; L03.032 Cellulitis of left toe | CPT/HCPCS: 99214 ==

== ENCOUNTER → 2025-02-18 08:50 | Outpatient (BNVA) | payer MEDICARE, OTHER, SELFPAY | PROVIDERS: Family Provider Family Medicine; PCP Family Medicine; Visit Provider Podiatrist Foot & Ankle Surgery | DX: L60.0 Ingrowing nail (principal); E11.8 Type 2 diabetes mellitus with unspecified complications; L60.3 Nail dystrophy; I73.9 Peripheral vascular disease, unspecified | CPT/HCPCS: 11730; 11750; 99214; A6219 ==

== ENCOUNTER 2025-03-08 13:41 | Outpatient (RCR) | payer SELFPAY | END 2025-04-05 23:59 | disposition home or self-care (01) | LOC: CR 13:41 | PROVIDERS: Family Provider Family Medicine; PCP Family Medicine; Referring Provider Internal Medicine; Visit Provider Internal Medicine | DX: I25.10 Atherosclerotic heart disease of native coronary artery without angina pectoris (principal) ==

== ENCOUNTER → 2025-03-16 14:09 | Outpatient (BNVA) | payer MEDICARE, OTHER, SELFPAY | PROVIDERS: Family Provider Family Medicine; PCP Family Medicine; Visit Provider Podiatrist Foot & Ankle Surgery | DX: E11.8 Type 2 diabetes mellitus with unspecified complications (principal); L60.3 Nail dystrophy; L60.0 Ingrowing nail; I73.9 Peripheral vascular disease, unspecified | CPT/HCPCS: 11721 ==

== ENCOUNTER 2025-04-06 10:27 | Outpatient (RCR) | payer SELFPAY | END 2025-05-06 23:59 | disposition home or self-care (01) | LOC: CR 10:27 | PROVIDERS: Family Provider Family Medicine; PCP Family Medicine; Referring Provider Internal Medicine; Visit Provider Internal Medicine | DX: I25.10 Atherosclerotic heart disease of native coronary artery without angina pectoris (principal) ==

== ENCOUNTER 2025-05-07 13:05 | Outpatient (RCR) | payer SELFPAY | END 2025-06-05 23:59 | disposition home or self-care (01) | LOC: CR 13:05 | PROVIDERS: Family Provider Family Medicine; PCP Family Medicine; Referring Provider Internal Medicine; Visit Provider Internal Medicine | DX: I25.10 Atherosclerotic heart disease of native coronary artery without angina pectoris (principal) ==

== ENCOUNTER → 2025-05-25 14:05 | Outpatient (BNVA) | payer MEDICARE, OTHER, SELFPAY | PROVIDERS: Family Provider Family Medicine; PCP Family Medicine; Visit Provider Podiatrist Foot & Ankle Surgery | DX: E11.8 Type 2 diabetes mellitus with unspecified complications (principal); L60.3 Nail dystrophy; I73.9 Peripheral vascular disease, unspecified | CPT/HCPCS: 11721 ==

== ENCOUNTER 2025-06-06 12:04 | Outpatient (RCR) | payer SELFPAY | END 2025-07-06 23:59 | disposition home or self-care (01) | LOC: CR 12:04 | PROVIDERS: Family Provider Family Medicine; PCP Family Medicine; Referring Provider Internal Medicine; Visit Provider Internal Medicine | DX: I25.10 Atherosclerotic heart disease of native coronary artery without angina pectoris (principal) ==